=== PATIENT | female | born 1960 | race Caucasian/White ===

== ENCOUNTER 2016-08-23 07:45 | Emergency (ER) | payer OTHER ==
[~2016-08-23] VITALS: Ht 162.6 cm; Wt 68.0 kg
--- NOTE | 2016-08-23 08:11 | PHYS DOC ---
Past Medical History Past Medical History: A-Fib, Anemia, Anxiety, Constipation, Depression, GERD, Hypothyroid, Seizure, UTI Additional Past Medical Histor: hepatitis, osteromyelitis, c-diff,quadriplegia , wound back Past Surgical History: Other Additional Past Surgical Histo: peg tube placement Alcohol Use: None Drug Use: None Adult General Chief Complaint Chief Complaint: GTUBE REPLACEMENT/MALFUNCTION HPI HPI Patient is a 55 year old female who presents to the emergency department for evaluation of a self extubated G-tube site. The patient was sent from the snf for evaluation. Per report from snf, the patient was scheduled to have her G-tube removed today. The patient does not remember how the tube came out but suspicion is that the patient pulled it out on her own. The area was dressed and the patient was sent to the emergency department reportedly because staff wanted to have the ostomy site "stitched." The patient has no complaints at this time. Review of Systems Review of Systems Constitutional: Denies fever or chills [] Eyes: Denies change in visual acuity, redness, or eye pain [] HENT: Denies nasal congestion or sore throat [] Respiratory: Denies cough or shortness of breath [] Cardiovascular: Denies chest pain or edema [] GI: Denies abdominal pain, nausea, vomiting, bloody stools or diarrhea [] : Denies dysuria or hematuria [] Musculoskeletal: Denies back pain or joint pain [] Integument: Denies rash or skin lesions [] Neurologic: Denies headache, focal weakness or sensory changes [] Allergies Allergies Allergies Coded Allergies Type Severity Reaction Last Updated Verified ciprofloxacin Allergy Unknown 08/23/16 Yes Physical Exam Physical Exam Constitutional: Alert, afebrile, no acute distress. [] HENT: Normocephalic, atraumatic, bilateral external ears normal, oropharynx moist, no oral exudates, nose normal. [] Eyes: PERRLA, EOMI, conjunctiva normal, no discharge. [] Neck: Normal range of motion, no tenderness, supple, no stridor. [] Cardiovascular:Heart rate regular rhythm, no murmur [] Lungs & Thorax: Bilateral breath sounds clear to auscultation [] Abdomen: Bowel sounds normal, soft, left upper quadrant ostomy site dressings clean, dry, and intact, ostomy site without bleeding or laceration, no tenderness, no masses, no pulsatile masses. [] Skin: Warm, dry, no erythema, no rash. [] Back: No tenderness, no CVA tenderness. [] Extremities: No tenderness, no cyanosis, no clubbing, ROM intact, no edema. [] Neurologic: Alert and oriented X 3, answers questions appropriately. [] Current Patient Data Vital Signs Vital Signs Date Time Temp Pulse Resp B/P Pulse Ox O2 Delivery O2 Flow Rate FiO2 08/23/16 07:45 98.7 76 20 112/59 91 Room Air 98.7 Lab Values Laboratory Tests Test 08/23/16 08:40 White Blood Count 3.8x10^3/uL (4.0-11.0) L Red Blood Count 3.49x10^6/uL (3.50-5.40) L Hemoglobin 9.4g/dL (12.0-15.5) L Hematocrit 29.2% (36.0-47.0) L Mean Corpuscular Volume 84fL (79-100) Mean Corpuscular Hemoglobin 27pg (25-35) Mean Corpuscular Hemoglobin Concent 32g/dL (31-37) Red Cell Distribution Width 18.5% (11.5-14.5) H Platelet Count 250x10^3/uL (140-400) Neutrophils (%) (Auto) 35% (31-73) Lymphocytes (%) (Auto) 42% (24-48) Monocytes (%) (Auto) 15% (0-9) H Eosinophils (%) (Auto) 8% (0-3) H Basophils (%) (Auto) 1% (0-3) Neutrophils # (Auto) 1.3x10^3uL (1.8-7.7) L Lymphocytes # (Auto) 1.6x10^3/uL (1.0-4.8) Monocytes # (Auto) 0.6x10^3/uL (0.0-1.1) Eosinophils # (Auto) 0.3x10^3/uL (0.0-0.7) Basophils # (Auto) 0.0x10^3/uL (0.0-0.2) Sodium Level 139mmol/L (136-145) Potassium Level 3.9mmol/L (3.5-5.1) Chloride Level 103mmol/L (98-107) Carbon Dioxide Level 31mmol/L (21-32) Anion Gap 5 (6-14) L Blood Urea Nitrogen 13mg/dL (7-20) Creatinine 0.3mg/dL (0.6-1.0) L Estimated GFR (Cockcroft-Gault) 231.0 Glucose Level 85mg/dL (70-99) Calcium Level 9.1mg/dL (8.5-10.1) Laboratory Tests 08/23/16 08:40 Laboratory Tests 08/23/16 08:40 EKG EKG Not performed [] Radiology/Procedures Radiology/Procedures Not performed [] Course & Med Decision Making Course & Med Decision Making Pertinent Labs and Imaging studies reviewed. (See chart for details) The patient appears well and in no acute distress at this time. The patient's ostomy site needs routine wound care as it should not be stitched closed at this time. I spoke with Dr. Weiss who stated that it would be appropriate to transfer the patient back to the snf. Dragon Disclaimer Dragon Disclaimer This electronic medical record was generated, in whole or in part, using a voice recognition dictation system. Departure Departure Impression: Primary Impression: Complication of ostomy Disposition: 03 TRANSFER SNF Condition: GOOD Patient Instructions: PEG, Home Care, [id number] Additional Instructions: The ostomy site at this time will heal on its own. Please keep the ostomy site covered with clean bandages and provide routine wound care. Return to the emergency department for any worsening symptoms. RAOUL VALVERDE MD Aug 23, 2016 08:11
[2016-08-23 08:56] LABS: BASO % 1 % (0-3); EOS % 8 % (0-3); HEMATOCRIT 29.2 % (36.0-47.0); HEMOGLOBIN 9.4 g/dL (12.0-15.5); LYMPH # 1.6 x10^3/uL (1.0-4.8); LYMPH % 42 % (24-48); MEAN CORPUSCULAR HEMOGLOBIN 27 pg (25-35); MEAN CORPUSCULAR HGB CONC 32 g/dL (31-37); MEAN CORPUSCULAR VOLUME 84 fL (79-100); MONO % 15 % (0-9); NEUT % 35 % (31-73); PLATELET COUNT 250 x10^3/uL (140-400); RED BLOOD COUNT 3.49 x10^6/uL (3.50-5.40); RED CELL DISTRIBUTION WIDTH 18.5 % (11.5-14.5); WHITE BLOOD COUNT 3.8 x10^3/uL (4.0-11.0)
[2016-08-23 09:06] LABS: CALCIUM 9.1 mg/dL (8.5-10.1); CREATININE 0.3 mg/dL (0.6-1.0); POTASSIUM 3.9 mmol/L (3.5-5.1)
[2016-08-23 10:46] VITALS: BP 95/63
== END 2016-08-23 11:18 | disposition home or self-care (01) ==
LOC: ER 07:45
DX: K94.29 Other complications of gastrostomy (principal); I48.91 Unspecified atrial fibrillation; F41.9 Anxiety disorder, unspecified; K59.00 Constipation, unspecified; F32.9 Major depressive disorder, single episode, unspecified; K21.9 Gastro-esophageal reflux disease without esophagitis; E03.9 Hypothyroidism, unspecified; M86.9 Osteomyelitis, unspecified; G82.50 Quadriplegia, unspecified; Z87.440 Personal history of urinary (tract) infections; Z88.1 Allergy status to other antibiotic agents
CPT/HCPCS: 36415; 80048; 85027; 99285

== ENCOUNTER 2016-09-02 12:38 | Inpatient (IN) | payer OTHER ==
[~2016-09-02] VITALS: Ht 170.2 cm; Wt 77.2 kg
--- NOTE | 2016-09-02 13:22 | PHYS DOC ---
Past Medical History Past Medical History: A-Fib, Anemia, Anxiety, Constipation, Depression, GERD, Hypothyroid, Seizure, UTI Additional Past Medical Histor: hepatitis, osteromyelitis, c-diff,quadriplegia , wound back Past Surgical History: Other Additional Past Surgical Histo: peg tube placement Alcohol Use: None Drug Use: None Adult General Chief Complaint Chief Complaint: FEVER HPI HPI Patient is a 55 year old female who presents with her and confusion. According to snf she's been refusing her medicines for the last day and acting more confused. She had her Arciniega catheter changed 2 days ago. She presents the ER today with a fever of 100.8, and she has a hard time telling me why she is here and who she lives with her past medical history. Review of Systems Review of Systems Unable to obtain fully secondary to mild confusion. Current Medications Current Medications Current Medications Medications (Trade) Dose Ordered Sig/Nereida Start Time Stop Time Status Last Admin Dose Admin Morphine Sulfate 2 mg PRN Q2HR PRN 09/02/16 15:15 09/03/16 15:14 Ondansetron HCl (Zofran) 4 mg PRN Q8HRS PRN 09/02/16 15:15 09/03/16 15:14 Piperacillin Sod/ Tazobactam Sod 4.5 gm/Sodium Chloride 100 ml @ 200 mls/hr Q6HRS 09/02/16 18:00 UNV Piperacillin Sod/ Tazobactam Sod/ Sodium Chloride (Zosyn/Iv Sodium Chloride 0.9% 100ml) 100 ml @ 200 mls/hr 1X ONCE 09/02/16 15:15 09/02/16 15:44 Sodium Chloride 1,000 ml @ 510 mls/hr Q1H58M 09/02/16 15:01 09/02/16 19:01 Allergies Allergies Allergies Coded Allergies Type Severity Reaction Last Updated Verified ciprofloxacin Allergy Intermediate 09/02/16 Yes Physical Exam Physical Exam Constitutional: Well developed, well nourished, no acute distress, non-toxic appearance. [] HENT: Normocephalic, atraumatic, bilateral external ears normal, oropharynx moist, no oral exudates, nose normal. [] Eyes: PERRLA, EOMI, conjunctiva normal, no discharge. [] Neck: Normal range of motion, no tenderness, supple, no stridor. [] Cardiovascular:Heart rate regular rhythm, no murmur [] Lungs & Thorax: Bilateral breath sounds clear to auscultation [] Abdomen: Bowel sounds normal, soft, no tenderness, no masses, no pulsatile masses. [] Skin: Warm, dry, no erythema, no rash. [] Back: No tenderness, no CVA tenderness. [] Extremities: No tenderness, no cyanosis, no clubbing, ROM intact, no edema. [] Neurologic: Alert and oriented X 3, normal motor function, normal sensory function, no focal deficits noted. [] Psychologic: Affect normal, judgement normal, mood normal. [] Current Patient Data Vital Signs Vital Signs Date Time Temp Pulse Resp B/P Pulse Ox O2 Delivery O2 Flow Rate FiO2 09/02/16 13:15 100.8 118 22 101/65 Room Air 94 100.8 Lab Values Laboratory Tests Test 09/02/16 13:50 09/02/16 14:30 Urine Collection Type Unknown Urine Color [place] Urine Clarity Turbid Urine pH 7.0 Urine Specific [place] 1.010 Urine Protein 100mg/dL (NEG-TRACE) Urine Glucose (UA) Negativemg/dL (NEG) Urine Ketones (Stick) Tracemg/dL (NEG) Urine Blood Moderate (NEG) Urine Nitrite Positive (NEG) Urine Bilirubin Negative (NEG) Urine Urobilinogen Dipstick 2.0mg/dL (0.2 mg/dL) Urine Leukocyte Esterase Large (NEG) Urine RBC 6-10/HPF (0-2) Urine WBC Tntc/HPF (0-4) Urine Bacteria Many/HPF (0-FEW) Urine Test Negative (NEG) Influenza Type A Antigen Negative (NEGATIVE) Influenza Type B Antigen Negative (NEGATIVE) White Blood Count 9.9x10^3/uL (4.0-11.0) Red Blood Count 3.74x10^6/uL (3.50-5.40) Hemoglobin 10.1g/dL (12.0-15.5) L Hematocrit 30.9% (36.0-47.0) L Mean Corpuscular Volume 83fL (79-100) Mean Corpuscular Hemoglobin 27pg (25-35) Mean Corpuscular Hemoglobin Concent 33g/dL (31-37) Red Cell Distribution Width 17.4% (11.5-14.5) H Platelet Count 285x10^3/uL (140-400) Neutrophils (%) (Auto) 89% (31-73) H Lymphocytes (%) (Auto) 5% (24-48) L Monocytes (%) (Auto) 6% (0-9) Eosinophils (%) (Auto) 0% (0-3) Basophils (%) (Auto) 0% (0-3) Neutrophils # (Auto) 8.8x10^3uL (1.8-7.7) H Lymphocytes # (Auto) 0.5x10^3/uL (1.0-4.8) L Monocytes # (Auto) 0.6x10^3/uL (0.0-1.1) Eosinophils # (Auto) 0.0x10^3/uL (0.0-0.7) Basophils # (Auto) 0.0x10^3/uL (0.0-0.2) Platelet Estimate Pending Prothrombin Time 17.3SEC (11.7-14.0) H Prothrombin Time INR 1.5 (0.8-1.1) H PTT 43SEC (24-38) H Sodium Level 139mmol/L (136-145) Potassium Level 4.0mmol/L (3.5-5.1) Chloride Level 101mmol/L (98-107) Carbon Dioxide Level 28mmol/L (21-32) Anion Gap 10 (6-14) Blood Urea Nitrogen 24mg/dL (7-20) H Creatinine 0.8mg/dL (0.6-1.0) Estimated GFR (Cockcroft-Gault) 74.5 BUN/Creatinine Ratio 30 (6-20) H Glucose Level 115mg/dL (70-99) H Lactic Acid Level 1.2mmol/L (0.4-2.0) Calcium Level 9.7mg/dL (8.5-10.1) Total Bilirubin Pending Aspartate Amino Transferase (AST) Pending Alanine Aminotransferase (ALT) Pending Alkaline Phosphatase Pending Total Protein Pending Albumin Pending Albumin/Globulin Ratio Pending Laboratory Tests 09/02/16 14:30 Laboratory Tests 09/02/16 14:30 EKG EKG EKG shows sinus tachycardia at a rate of 119 bpm with left axis deviation, no ST elevations or T-wave inversions appreciated, QRS 82 ms as interpreted by me. Radiology/Procedures Radiology/Procedures [] Impressions: fever AMS Course & Med Decision Making Course & Med Decision Making Pertinent Labs and Imaging studies reviewed. (See chart for details) Patient was seen and evaluated by myself for fever and altered mental status. Labs, chest x-ray is pending at this time. Patient being checked out to Dr. Martin for final disposition and treatment. Dragon Disclaimer Dragon Disclaimer This electronic medical record was generated, in whole or in part, using a voice recognition dictation system. Departure Departure Referrals: MARY LOU YOUNG MD (PCP) ANDERSON PROCTOR MD Sep 02, 2016 13:22
[2016-09-02 14:12] LABS: BILIRUBIN,URINE NEGATIVE (NEG); GLUCOSE,URINE NEGATIVE (NEG); NITRITE,URINE POSITIVE (NEG); PROTEIN,URINE 100 mg/dL (NEG-TRACE)
[2016-09-02 14:20] LABS: NEG OBC UR NEG; POS OBC UR POS
[2016-09-02 14:24] LABS: OBC FLU VALID
[2016-09-02 14:33] LABS: BACTERIA,URINE MANY /HPF (0-FEW); WBC,URINE TNTC /HPF (0-4)
[2016-09-02 14:48] LABS: BASO % 0 % (0-3); EOS % 0 % (0-3); HEMATOCRIT 30.9 % (36.0-47.0); HEMOGLOBIN 10.1 g/dL (12.0-15.5); LYMPH # 0.5 x10^3/uL (1.0-4.8); LYMPH % 5 % (24-48); MEAN CORPUSCULAR HEMOGLOBIN 27 pg (25-35); MEAN CORPUSCULAR HGB CONC 33 g/dL (31-37); MEAN CORPUSCULAR VOLUME 83 fL (79-100); MONO % 6 % (0-9); NEUT % 89 % (31-73); PLATELET COUNT 285 x10^3/uL (140-400); RED BLOOD COUNT 3.74 x10^6/uL (3.50-5.40); RED CELL DISTRIBUTION WIDTH 17.4 % (11.5-14.5); WHITE BLOOD COUNT 9.9 x10^3/uL (4.0-11.0)
[2016-09-02 15:00] LABS: INR 1.5 (0.8-1.1); PROTHROMBIN TIME PATIENT 17.3 SEC (11.7-14.0)
[2016-09-02 15:06] LABS: CALCIUM 9.7 mg/dL (8.5-10.1); CREATININE 0.8 mg/dL (0.6-1.0); GFR 74.5
[2016-09-02] MEDS ORDERED: ONDANSETRON PF 4 MG/2 ML VIAL. IV PRN ×2 (15:15→16:30)
[2016-09-02] MEDS ORDERED: PIPERACILLIN/TAZOBACTAM 4.5 GM in IV NORMAL SALINE 100ML 100 ML IV ONE (15:15)
[2016-09-02] MEDS ORDERED: MORPHINE SULFATE 2 MG/ML DISP.SYRIN. IV PRN (15:15)
[2016-09-02 15:19] LABS: ALBUMIN 2.1 g/dL (3.4-5.0); ALBUMIN/GLOBULIN RATIO 0.4 (1.0-1.7); TOTAL BILIRUBIN 0.8 mg/dL (0.2-1.0); TOTAL PROTEIN 7.5 g/dL (6.4-8.2)
--- NOTE | 2016-09-02 15:30 | RAD ---
Indication fever. Protocol exam. A single view of the chest was obtained. No prior imaging of the chest is available. Slightly tortuous thoracic aorta is noted. Heart size and pulmonary vessels are normal. There is minimal volume loss at the left lung base likely reflecting atelectasis. A consolidated pneumonia in either lung is not seen. Significant pleural fluid is not present. There is no pneumothorax. There are degenerative changes about the right shoulder. Plate and screws are noted associated with the left clavicle as well as an isolated screw in the clavicle medially. Postoperative changes are noted in the thoracic spine. There is mild scoliosis. IMPRESSION: No definite acute or focal process seen in the chest
[2016-09-02] MEDS: IV NORMAL SALINE 1000ML BAG 1,000 ML IV SCH ×4 (15:32→19:14)
--- NOTE | 2016-09-02 16:03 | EKG ---
[facility] [address] [place] [address] Test Date: 2016-09-02 Test Time: 14:02:37 Pat Name: FRANCINE GARRIDO Department: Room: Gender: F Sports Physician: : [id number] Requested By: ANDERSON PROCTOR Order Number: [id number] Reading MD: Lyn Vann Measurements Intervals [place] Rate: 119 P: -123 MN: 88 QRS: -16 QRSD: 82 T: 41 QT: 352 QTc: 503 Interpretive Statements Sinus RHYTHM LEFTWARD AXIS NO SPECIFIC ECG ABNORMALITIES RI6.01 No previous ECG available for comparison Electronically Signed On 09-04-2016 20:51:56 OPERATING MANAGER by Lyn Vann
[2016-09-02 16:08] LABS: ANISOCYTOSIS SLIGHT; PLT ESTIMATE ADEQUATE (ADEQUATE); POLYCHROMASIA SLIGHT
[2016-09-02 16:09] LABS: TOXIC GRANULATION SLIGHT
[2016-09-02] MEDS ORDERED: VANCOMYCIN 1.5 GM in IV NORMAL SALINE 500ML BAG 500 ML IV SCH (16:30)
[2016-09-02] MEDS ORDERED: MORPHINE SULFATE 4 MG/ML DISP.SYRIN. IV PRN (16:30)
--- NOTE | 2016-09-02 16:30 | PDOC1 ---
History and Physical Date of Admission Date of Admission 09/02/16 Identification/Chief Complaint Chief Complaint weak, fever Problems: Source Source: Chart review, Patient History of Present Illness History of Present Illness HPI HPI Patient is a 55 year old female who presents with fever, and confusion. Pt is a poor historian and talks very slowly and randomly. As per ERP and ER nurse, Pt fell in 2014, got fx at c2-c6, SINCE then pt is quadriplegia , PEG feeding and freire. PEG was removed 1 week ago and po is ok since then. Pt had a bad dream 2 days ago, since then she became confused and refusing her meds, pt said "worried got too many meds" when i asked her why. She also has fever and chills. Her freire was changed 2 ds ago in SNF, has abd pain. denies cough, n/v, chest pain. in ER, T 100.8, very dirty urine. LA 1.2 Past Medical History Past Medical History y: A-Fib, Anemia, Anxiety, Constipation, Depression, GERD, Hypothyroid, Seizure , UTI Additional Past Medical Histor: hepatitis, osteromyelitis, c-diff,quadriplegia , wound back Past Surgical History: Other Past Surgical History Past Surgical History cervical spine sx , shouldersx Family History Family History: No Significant Social History Smoke: No ALCOHOL: none Drugs: None Current Problem List Problem List Problems Medical Problems: (1) Sepsis Status: Acute (2) UTI (urinary tract infection) Status: Acute Current Medications Current Medications Current Medications Medications (Trade) Dose Ordered Sig/Nereida Start Time Stop Time Status Last Admin Dose Admin Morphine Sulfate 2 mg PRN Q2HR PRN 09/02/16 15:15 09/03/16 15:14 Ondansetron HCl (Zofran) 4 mg PRN Q8HRS PRN 09/02/16 15:15 09/03/16 15:14 Piperacillin Sod/ Tazobactam Sod 4.5 gm/Sodium Chloride 100 ml @ 200 mls/hr Q6HRS 09/03/16 00:00 Piperacillin Sod/ Tazobactam Sod/ Sodium Chloride (Zosyn/Iv Sodium Chloride 0.9% 100ml) 100 ml @ 200 mls/hr 1X ONCE 09/02/16 15:15 09/02/16 15:44 DC 09/02/16 15:35 200 MLS/HR Sodium Chloride 1,000 ml @ 510 mls/hr Q1H58M 09/02/16 15:01 09/02/16 19:01 09/02/16 15:32 510 MLS/HR Allergies Allergies Allergies Coded Allergies Type Severity Reaction Last Updated Verified ciprofloxacin Allergy Intermediate 09/02/16 Yes ROS Review of System CONSTITUTIONAL: No fever or chills EYES: No recent changes SKIN: No rash or itching CARDIOVASCULAR: No chest pain, syncope, palpitations, or edema RESPIRATORY: No SOB or cough GASTROINTESTINAL: No nausea, vomiting or abdominal pain NEUROLOGICAL: No headaches or weakness ENDOCRINE: No cold or heat intolerance GENITOURINARY: No urgency or frequency of urination MUSCULOSKELETAL: No back pain or joint pain LYMPHATICS: No enlarged lymph nodes PSYCHIATRIC: No anxiety or depression Physical Exam Physical Exam GEN.: No apparent distress. Alert and oriented x2, to place, knows hospital , but dont know which one, knows year, looks mild lethargic, talks very slowly and randomly HEENT: Head is normocephalic, atraumatic NECK: Supple. LUNGS: Clear to auscultation. HEART: RRR, S1, S2 present. Peripheral pulses intact ABDOMEN: Soft, Positive bowel sounds. diffuse mild tenderness EXTREMITIES: Without any cyanosis. quadriplegia. bl leg 1+ edema. dirty freire NEUROLOGIC: Normal speech, normal tone PSYCHIATRIC: Normal affect, normal mood. SKIN: No ulcerations Vitals Vitals Vital Signs Date Time Temp Pulse Resp B/P Pulse Ox O2 Delivery O2 Flow Rate FiO2 09/02/16 13:15 100.8 118 22 101/65 Room Air 94 100.8 Labs Labs Laboratory Tests Test 09/02/16 13:50 09/02/16 14:30 Urine Collection Type Unknown Urine Color [place] Urine Clarity Turbid Urine pH 7.0 Urine Specific [place] 1.010 Urine Protein 100mg/dL (NEG-TRACE) Urine Glucose (UA) Negativemg/dL (NEG) Urine Ketones (Stick) Tracemg/dL (NEG) Urine Blood Moderate (NEG) Urine Nitrite Positive (NEG) Urine Bilirubin Negative (NEG) Urine Urobilinogen Dipstick 2.0mg/dL (0.2 mg/dL) Urine Leukocyte Esterase Large (NEG) Urine RBC 6-10/HPF (0-2) Urine WBC Tntc/HPF (0-4) Urine Bacteria Many/HPF (0-FEW) Urine Test Negative (NEG) Influenza Type A Antigen Negative (NEGATIVE) Influenza Type B Antigen Negative (NEGATIVE) White Blood Count 9.9x10^3/uL (4.0-11.0) Red Blood Count 3.74x10^6/uL (3.50-5.40) Hemoglobin 10.1g/dL (12.0-15.5) Hematocrit 30.9% (36.0-47.0) Mean Corpuscular Volume 83fL (79-100) Mean Corpuscular Hemoglobin 27pg (25-35) Mean Corpuscular Hemoglobin Concent 33g/dL (31-37) Red Cell Distribution Width 17.4% (11.5-14.5) Platelet Count 285x10^3/uL (140-400) Neutrophils (%) (Auto) 89% (31-73) Lymphocytes (%) (Auto) 5% (24-48) Monocytes (%) (Auto) 6% (0-9) Eosinophils (%) (Auto) 0% (0-3) Basophils (%) (Auto) 0% (0-3) Neutrophils # (Auto) 8.8x10^3uL (1.8-7.7) Lymphocytes # (Auto) 0.5x10^3/uL (1.0-4.8) Monocytes # (Auto) 0.6x10^3/uL (0.0-1.1) Eosinophils # (Auto) 0.0x10^3/uL (0.0-0.7) Basophils # (Auto) 0.0x10^3/uL (0.0-0.2) Segmented Neutrophils % 62% (35-66) Band Neutrophils % 27% (0-9) Lymphocytes % 6% (24-48) Monocytes % 5% (0-10) Toxic Granulation Slight Platelet Estimate Adequate (ADEQUATE) Polychromasia Slight Anisocytosis Slight Prothrombin Time 17.3SEC (11.7-14.0) Prothromb Time International Ratio 1.5 (0.8-1.1) Activated Partial Thromboplast Time 43SEC (24-38) Sodium Level 139mmol/L (136-145) Potassium Level 4.0mmol/L (3.5-5.1) Chloride Level 101mmol/L (98-107) Carbon Dioxide Level 28mmol/L (21-32) Anion Gap 10 (6-14) Blood Urea Nitrogen 24mg/dL (7-20) Creatinine 0.8mg/dL (0.6-1.0) Estimated GFR (Cockcroft-Gault) 74.5 BUN/Creatinine Ratio 30 (6-20) Glucose Level 115mg/dL (70-99) Lactic Acid Level 1.2mmol/L (0.4-2.0) Calcium Level 9.7mg/dL (8.5-10.1) Total Bilirubin 0.8mg/dL (0.2-1.0) Aspartate Amino Transf (AST/SGOT) 32U/L (15-37) Alanine Aminotransferase (ALT/SGPT) 16U/L (14-59) Alkaline Phosphatase 98U/L (46-116) Total Protein 7.5g/dL (6.4-8.2) Albumin 2.1g/dL (3.4-5.0) Albumin/Globulin Ratio 0.4 (1.0-1.7) Laboratory Tests Test 09/02/16 13:50 09/02/16 14:30 Urine Collection Type Unknown Urine Color [place] Urine Clarity Turbid Urine pH 7.0 Urine Specific [place] 1.010 Urine Protein 100mg/dL (NEG-TRACE) Urine Glucose (UA) Negativemg/dL (NEG) Urine Ketones (Stick) Tracemg/dL (NEG) Urine Blood Moderate (NEG) Urine Nitrite Positive (NEG) Urine Bilirubin Negative (NEG) Urine Urobilinogen Dipstick 2.0mg/dL (0.2 mg/dL) Urine Leukocyte Esterase Large (NEG) Urine RBC 6-10/HPF (0-2) Urine WBC Tntc/HPF (0-4) Urine Bacteria Many/HPF (0-FEW) Urine Test Negative (NEG) Influenza Type A Antigen Negative (NEGATIVE) Influenza Type B Antigen Negative (NEGATIVE) White Blood Count 9.9x10^3/uL (4.0-11.0) Red Blood Count 3.74x10^6/uL (3.50-5.40) Hemoglobin 10.1g/dL (12.0-15.5) Hematocrit 30.9% (36.0-47.0) Mean Corpuscular Volume 83fL (79-100) Mean Corpuscular Hemoglobin 27pg (25-35) Mean Corpuscular Hemoglobin Concent 33g/dL (31-37) Red Cell Distribution Width 17.4% (11.5-14.5) Platelet Count 285x10^3/uL (140-400) Neutrophils (%) (Auto) 89% (31-73) Lymphocytes (%) (Auto) 5% (24-48) Monocytes (%) (Auto) 6% (0-9) Eosinophils (%) (Auto) 0% (0-3) Basophils (%) (Auto) 0% (0-3) Neutrophils # (Auto) 8.8x10^3uL (1.8-7.7) Lymphocytes # (Auto) 0.5x10^3/uL (1.0-4.8) Monocytes # (Auto) 0.6x10^3/uL (0.0-1.1) Eosinophils # (Auto) 0.0x10^3/uL (0.0-0.7) Basophils # (Auto) 0.0x10^3/uL (0.0-0.2) Segmented Neutrophils % 62% (35-66) Band Neutrophils % 27% (0-9) Lymphocytes % 6% (24-48) Monocytes % 5% (0-10) Toxic Granulation Slight Platelet Estimate Adequate (ADEQUATE) Polychromasia Slight Anisocytosis Slight Prothrombin Time 17.3SEC (11.7-14.0) Prothromb Time International Ratio 1.5 (0.8-1.1) Activated Partial Thromboplast Time 43SEC (24-38) Sodium Level 139mmol/L (136-145) Potassium Level 4.0mmol/L (3.5-5.1) Chloride Level 101mmol/L (98-107) Carbon Dioxide Level 28mmol/L (21-32) Anion Gap 10 (6-14) Blood Urea Nitrogen 24mg/dL (7-20) Creatinine 0.8mg/dL (0.6-1.0) Estimated GFR (Cockcroft-Gault) 74.5 BUN/Creatinine Ratio 30 (6-20) Glucose Level 115mg/dL (70-99) Lactic Acid Level 1.2mmol/L (0.4-2.0) Calcium Level 9.7mg/dL (8.5-10.1) Total Bilirubin 0.8mg/dL (0.2-1.0) Aspartate Amino Transf (AST/SGOT) 32U/L (15-37) Alanine Aminotransferase (ALT/SGPT) 16U/L (14-59) Alkaline Phosphatase 98U/L (46-116) Total Protein 7.5g/dL (6.4-8.2) Albumin 2.1g/dL (3.4-5.0) Albumin/Globulin Ratio 0.4 (1.0-1.7) VTE Prophylaxis Ordered VTE Prophylaxis Devices: Yes VTE Pharmacological Prophylaxi: Yes Assessment/Plan Assessment/Plan 1. UTI 2 . fever with 1 3. PAFIB, sinus now 4. anemia, chronic 5. quadriplegia post cervical fx 6. depression 7. hypothyroidism 8. GERD 9. h/o seizure 10. h/o cdiff 11. h/o hepatitis and osteomyelitis 12. dysphagia, resolved , PEG removed 13. indwelling freire with neurogenic bladder 14. AMS with metabolic encephalopathy plan: 1. need home meds 2. on zosyn from ER, add vanco ID consult 3. IVF 4. nutrition consult 5. dvt ppx, gi ppx OT 6. fu bcx, ucx US JALYN Garcia MD Sep 02, 2016 16:30
[2016-09-02] MEDS: VANCOMYCIN PER PHARMACY MC PRN (16:32)
[2016-09-02] MEDS ORDERED: VANCOMYCIN 1.75 GM in IV NORMAL SALINE 500ML BAG 500 ML IV ONE (17:00)
[2016-09-02 18:30] VITALS: BP 86/41
[2016-09-02] MEDS: ACETAMINOPHEN 325 MG TABLET. PO PRN (19:15)
[2016-09-02] MEDS: PANTOPRAZOLE 40 MG TABLET. PO SCH (19:15)
[2016-09-02] MEDS: ENOXAPARIN 40 MG/0.4 ML DISP.SYRIN. SQ SCH (19:15)
[2016-09-02 19:49] VITALS: BP 111/65
[2016-09-02 22:53] VITALS: BP 66/41
[2016-09-02] MEDS ORDERED: IV NORMAL SALINE 1000ML BAG 1,000 ML IV ONE (23:00)
[2016-09-02 23:15] VITALS: BP 131/67
[2016-09-02 23:30] VITALS: BP 75/41
[2016-09-02 23:45] VITALS: BP 85/49
[2016-09-03] VITALS (30 sets, daily range): BP systolic 71–130; BP diastolic 46–78
[2016-09-03] MEDS: MIDODRINE 5 MG TABLET PO SCH ×4 (00:08→16:35)
[2016-09-03] MEDS: HYDROCODONE/APAP 5/325MG TABLET. PO PRN ×2 (00:08→16:37)
[2016-09-03] MEDS: PIPERACILLIN/TAZOBACTAM 4.5 GM in IV NORMAL SALINE 100ML 100 ML IV SCH ×4 (01:10→16:35)
[2016-09-03] MEDS ORDERED: ACET325T9 PO (01:29)
[2016-09-03] MEDS ORDERED: IRON150C3 PO (01:29)
[2016-09-03] MEDS ORDERED: DIVA125T2 PO (01:29)
[2016-09-03] MEDS ORDERED: ASPI81TA2 PO (01:29)
[2016-09-03] MEDS ORDERED: BACL10TA PO (01:29)
[2016-09-03] MEDS ORDERED: BISA10SU2 RC (01:29)
[2016-09-03] MEDS ORDERED: FLUO40CA2 PO (01:29)
[2016-09-03] MEDS ORDERED: MIRT15TA3 PO (01:29)
[2016-09-03] MEDS ORDERED: MIDO10TA PO (01:29)
[2016-09-03] MEDS ORDERED: FAMO20TA5 PO (01:29)
[2016-09-03] MEDS ORDERED: SODI14.12 TP (01:29)
[2016-09-03] MEDS ORDERED: SIME80TA14 PO (01:29)
[2016-09-03] MEDS ORDERED: MORP30TA PO (01:29)
[2016-09-03] MEDS ORDERED: FENT1PAT15 TD (01:29)
[2016-09-03] MEDS ORDERED: LEVO100T PO (01:29)
[2016-09-03] MEDS ORDERED: LIOT5TAB3 PO (01:29)
[2016-09-03] MEDS ORDERED: ONDA4TAB12 PO (01:29)
[2016-09-03] MEDS ORDERED: ASCO500T2 PO (01:29)
[2016-09-03] MEDS ORDERED: DOCU-27 PO (01:29)
[2016-09-03] MEDS ORDERED: CLON0.5T3 PO (01:29)
[2016-09-03] MEDS ORDERED: ZINC220C5 PO (01:29)
[2016-09-03] MEDS ORDERED: MELO-150 PO (01:29)
[2016-09-03] MEDS ORDERED: OXYC20TA PO (01:29)
[2016-09-03] MEDS ORDERED: OXYB5TAB7 PO (01:29)
[2016-09-03] MEDS: NOREPINEPHRINE VIAL 8 MG in IV NORMAL SALINE 250ML 250 ML IV PRN ×2 (01:45→21:42)
[2016-09-03 04:30] LABS: BASO % 0 % (0-3); EOS % 0 % (0-3); HEMATOCRIT 26.2 % (36.0-47.0); HEMOGLOBIN 8.4 g/dL (12.0-15.5); LYMPH # 0.4 x10^3/uL (1.0-4.8); LYMPH % 6 % (24-48); MEAN CORPUSCULAR HEMOGLOBIN 27 pg (25-35); MEAN CORPUSCULAR HGB CONC 32 g/dL (31-37); MEAN CORPUSCULAR VOLUME 84 fL (79-100); MONO % 6 % (0-9); NEUT % 88 % (31-73); PLATELET COUNT 211 x10^3/uL (140-400); RED BLOOD COUNT 3.13 x10^6/uL (3.50-5.40); RED CELL DISTRIBUTION WIDTH 17.7 % (11.5-14.5); WHITE BLOOD COUNT 6.3 x10^3/uL (4.0-11.0)
[2016-09-03 04:49] LABS: CALCIUM 8.5 mg/dL (8.5-10.1); CREATININE 0.6 mg/dL (0.6-1.0); GFR 103.8
[2016-09-03 04:53] LABS: POTASSIUM 2.6 mmol/L (3.5-5.1)
[2016-09-03] MEDS: IV NORMAL SALINE 1000ML BAG 1,000 ML IV SCH ×2 (04:56→11:08)
[2016-09-03] MEDS ORDERED: VANCOMYCIN 1 GM in IV NORMAL SALINE 250ML 250 ML IV SCH ×2 (05:00→13:00)
[2016-09-03] MEDS: POTASSIUM CHLORIDE 10MEQ 100 ML IV SCH ×7 (06:13→16:34)
--- NOTE | 2016-09-03 07:51 | RAD ---
Abdominal ultrasound, 09/02/2016: History: Abdominal pain, UTI The gallbladder is surgically absent. The common hepatic duct measures approximately 1 cm which is at the upper limits of normal in size for the postcholecystectomy state. No intrahepatic biliary ductal dilatation is seen. There is a small 1.4 cm cyst in the liver. The liver is otherwise unremarkable. The visualized portions of the pancreas show no abnormality. The spleen is of normal size. The kidneys are of normal size and show no evidence of obstruction. The upper abdominal aorta is of normal caliber. It is obscured distally due to overlying bowel. The visualized portions of the inferior vena cava are unremarkable. No free fluid is evident in the abdomen. IMPRESSION: 1. Status post cholecystectomy. 2. Small hepatic cyst. 3. No acute abnormality is detected.
[2016-09-03] MEDS: PANTOPRAZOLE 40 MG TABLET. PO SCH (08:16)
[2016-09-03] MEDS: VANCOMYCIN PER PHARMACY MC PRN ×2 (10:56→10:57)
[2016-09-03] MEDS: VANCOMYCIN 1 GM in IV NORMAL SALINE 250ML 250 ML IV SCH ×2 (12:36→20:24)
--- NOTE | 2016-09-03 13:12 | HP ---
ADMIT DATE: 09/02/2016 HISTORY OF PRESENT ILLNESS: The patient is a 55-year-old female patient who was residing at [facility] and who apparently has complained that she is not feeling well. The nursing staff contacted me as she has been febrile. She is more confused than usual and a decision was made to send her to the Emergency Room where she was evaluated and was found to be septic and was admitted with fever and altered mental status. Her blood pressure was low, so she was admitted to the ICU, was given IV fluid, IV Levophed, was started on broad spectrum antibiotic after obtaining appropriate cultures of urine and blood. PAST MEDICAL HISTORY: Significant for chronic hepatitis, acute hematogenous osteomyelitis, atrial fibrillation, gastroesophageal reflux disease with esophagitis, chronic anemia. Patient has C. diff colitis. She has also seizure disorder, chronic constipation, chronic pain syndrome, major depressive disorder, hypothyroidism, protein-calorie malnutrition, essential hypertension, anxiety disorder, and she has quadriplegia, urinary tract infection. She has also chronic sacral decubitus ulcer. PAST SURGICAL HISTORY: Significant for gastrostomy tube placement and that apparently dislodged accidentally. ALLERGIES: SHE IS ALLERGIC TO CIPROFLOXACIN. CODE STATUS: Full. MEDICATIONS: She is currently on the following medications: Aspirin 81 mg once a day, baclofen 10 mg by mouth 3 times a day, bisacodyl suppository 10 mg rectally as needed, multivitamin mineral one tablet once a day, clonazepam 0.5 mg by mouth 3 times a day, Colace 100 mg twice a day. She is on divalproex sodium 125 mg by mouth twice a day, fentanyl patch 72 hours 25 mcg per hour q. 72 hours. She is also on Celebrex 150 mg once a day, fluoxetine 40 mg once a day, liothyronine sodium 5 mcg once a day. She is on Meloxicam tablet 15 mg once a day, midodrine 10 mg 3 times a day for systolic pressure below 110, mirtazapine 15 mg at bedtime, morphine sulfate 30 mg 3 times a day. She is on oxybutynin 5 mg twice a day, oxycodone 10 mg, she takes it 20 mg every 4 hours. Pepcid 20 mg once a day and saline gel 1 puff to both nostrils every 6 hours. She is on simethicone 80 mg with meals, Synthroid 100 mcg once a day and Tylenol 650 mg every 4 hours as needed, vitamin C 500 mcg once a day and zinc sulfate 220 mg once a day, Zofran oral disintegrating tablet 4 mg every 6 hours as needed. FAMILY HISTORY: Unremarkable. SOCIAL HISTORY: She is currently residing at [facility]. She does not smoke, drink alcohol or use recreational drugs. She is mostly bedbound, chair bound. REVIEW OF SYSTEMS: As per history of present illness. PHYSICAL EXAMINATION: GENERAL: On arrival to the Emergency Room, the patient was tachycardic. She was pale, cachectic. No jaundice or cyanosis, no thyromegaly. No jugular venous distention. No limb edema. VITAL SIGNS: Her heart rate was 118, blood pressure was 101/65, temperature was 100.8, respiratory rate was 22, and oxygen saturation was 94% on room air. HEAD, EYES, EARS, NOSE, AND THROAT: Showed normocephalic, atraumatic. NECK: Supple. HEART: Showed normal first and second heart sounds. No gallop, rub, or murmur. CHEST: Clear to auscultation. No crepitation or rhonchi. ABDOMEN: Distended, soft, nontender. No guarding or rigidity. No organomegaly. All hernial orifices intact. Bowel sounds normal. NEUROLOGIC: She was lethargic, but arousable. All cranial nerves intact. She has quadriplegia with fixed flexion contraction of all 4 limbs. She has a large sacral decubitus ulcer. LABORATORY DATA: On arrival showed that her white cell count was 9900, hemoglobin 10, hematocrit 30, MCV 30, and platelet count 25,000 with a manual differential showed 80%-89% polymorphs, and 50%-55% lymphocytes. Her chemistry showed a serum sodium 139, potassium 4, chloride 101, bicarbonate 28, anion gap of 10, BUN 24, creatinine 0.8, estimated GFR was 74 mL per minute. Her glucose was 115, lactic acid was only 1.2, calcium was 9.7. Total bilirubin, AST, ALT, alkaline phosphatase were normal. Total protein was 7.5, albumin 2.1. Her prothrombin time was 17.3, INR 1.5, aPTT was 43. Her urinalysis showed the urine was luigi, turbid with a pH of 7, specific gravity of 1.010. There was large amount of protein, negative for glucose, trace of ketones, moderate amount of blood, positive for nitrite, and large amount of leukocyte esterase. There was 6-10 RBCs, too numerous to count wbc's, and too many bacteria. Her test was negative. Her influenza A and B were negative. She did have a chest x-ray, which showed that slight tortuous thoracic aorta is noted. The heart size and pulmonary vessels are normal. There is minimal volume loss at the left lung base likely reflecting atelectasis, consolidated pneumonia in either lung is not seen. Significant pleural fluid is not seen. There is no pneumothorax. There are degenerative changes about the right shoulder. Blades and screws are noted associated with left clavicle as well as an isolated screw in the clavicle immediately. Postoperative changes are noted in the thoracic spine. There is mild scoliosis. She did have an ultrasound of the abdomen, which showed that she is status post cholecystectomy, small hepatic cyst, no acute abnormalities detected. ASSESSMENT AND PLAN: The patient was admitted with sepsis, most likely due to urinary tract infection. Urine and blood were sent for culture and sensitivity. She was started on IV vancomycin as well as tazobactam and continue her pain medication, antiemetic, and acetaminophen. She was started also on Levophed drip. We will continue to follow her lab work and adjusted medications as needed depending on the blood culture. MARY LOU YOUNG MD DR: BASIM/tom JOB#: [id number] / [id number]
[2016-09-03] MEDS: MORPHINE SULFATE 2 MG/ML DISP.SYRIN. IV PRN ×2 (14:51→17:59)
[2016-09-03] MEDS: CLONAZEPAM 0.5 MG TABLET PO SCH ×2 (15:14→20:28)
[2016-09-03] MEDS: ENOXAPARIN 40 MG/0.4 ML DISP.SYRIN. SQ SCH (16:34)
[2016-09-03] MEDS: ACETAMINOPHEN 325 MG TABLET. PO PRN (17:59)
--- NOTE | 2016-09-03 19:55 | PN ---
DATE: 09/03/2016 SUBJECTIVE: The patient is resting slightly propped up in bed, no apparent distress, sleepy but arousable. On questioning her, she denied any complaint. The nursing staff did not voice any concern and stated that she has been doing well. She is definitely more awake, alert. She is off the vasopressors. OBJECTIVE: PHYSICAL EXAMINATION: GENERAL: When I examined her, she looked well and was clearly in no apparent respiratory distress. She was pale, but no jaundice, cyanosis or thyromegaly. No jugular venous distention. No limb edema. VITAL SIGNS: Her heart rate was 84, blood pressure was 83/49, temperature was 100, respiratory rate was 15 and oxygen saturation was 97% on room air. HEAD, EYES, EARS, NOSE AND THROAT: Showed normocephalic, atraumatic. NECK: Supple. HEART: Showed normal first and second heart sounds with no gallop, rub or murmur. CHEST: Clear to auscultation. No crepitation or rhonchi. ABDOMEN: Distended, soft, nontender. No guarding or rigidity. No organomegaly. Hernial orifices intact. Bowel sounds normal. NEUROLOGIC: She was sleepy, but arousable. All cranial nerves intact. She has quadriplegia with marked muscle wasting. Patient ____ all 4 limbs. She has an indwelling Arciniega catheter. She has large sacral decubitus ulcer. Her intake over the last 24 hours was 2250, output was 360. LABORATORY DATA: As of this morning, her white cell count is down to 6300, hemoglobin 8.4, hematocrit 26, MCV 84 and platelet count of 211,000. Her chemistry showed a serum sodium 138, potassium 2.6, chloride 104, bicarbonate 25, anion gap of 9, BUN 18, creatinine 0.6, estimated GFR was 140 mL per minute. Her glucose was 130 and calcium was 8.5. ASSESSMENT: This is a 55-year-old female patient who was admitted with altered mental status, fever and confusion, was found to have urinary tract infection, chronic anemia, quadriplegia, hypothyroidism, gastroesophageal reflux disease, history of seizures, previous history of C. diff colitis as well as hepatitis and osteomyelitis. She used to have a percutaneous gastrostomy tube, but did very well on her video swallowing evaluation, her gastrostomy tube was dislodged accidentally and we have not put it back. She has a neurogenic bladder requiring indwelling Arciniega catheter. She is definitely much better today. Her urine culture is growing gram-negative rods in one out of four bottles. PLAN: My plan is to continue with the current plan of management including the IV antibiotic. Continue with DVT prophylaxis. Continue with pain management. She has hypokalemia that will need to be replenished and I will repeat all her lab work tomorrow and decide further management. If the cultures show no growth of gram positive cocci, we will discontinue her vancomycin tomorrow. MARY LOU YOUNG MD DR: BASIM/tom JOB#: [id number] / [id number]
[2016-09-03] MEDS ORDERED: IV NORMAL SALINE 1000ML BAG 1,000 ML IV ONE (20:15)
[2016-09-03] MEDS: OXYCODONE IR 5 MG TABLET. PO PRN (20:29)
--- NOTE | 2016-09-03 22:59 | PDOC2 ---
BAIRON DE LA VEGA WATER SUPERVISOR 09/03/166: CONSULT Date of Consult Date of Consult DATE: 09/03/16 TIME: 20:11 Reason for Consult Reason for Consult: Positive blood cultures Referring Physician Referring Physician: Dr. Weiss Source Source: Chart review, Patient History of Present Illness Reason for Visit: This is a 55 year old quadriplegic who was sent to ER from [facility] for fever and increase confusion. Lab work-up revealed bandemia with a normal lactic acid and creatinine. She was febrile and hypotensive requiring vasopressor support. UA was suggestive of infection. UC GNR x 2 spp and BC return with GNR. She has a chronic indwelling Arciniega that has been needing to be changed every couple of days or so due to thick sediment clogging the tube. Most recently changed at [facility] on 08/31. Past Medical History Past Medical History C. difficile. Chronic sacral decubitus ulcer Quadriplegia Seizure disorder A-fib GERD Depression Hypertension Osteomyelitis Chronic pain syndrome Hypothyroidism Protein-calorie malnutrition Past Surgical History Past Surgical History Cholecystomy G-tube placement and dislodgement Cervical spine surgery with hardware Family History Family History Noncontributory Social History Social History [place] resident Nonsmoker Current Problem List Problem List Problems Medical Problems: (1) Sepsis Status: Acute (2) UTI (urinary tract infection) Status: Acute Current Medications Current Medications Vancomycin Zosyn Other meds are available and have been reviewed Allergies Allergies: Coded Allergies: ciprofloxacin (Verified Allergy, Intermediate, 09/02/16) ROS Review of System c/o neck pain and abdominal pain Denies N/V/D Denies cough, SOA and CP Total dependent of ADLs. Physical Exam Physical Exam GENERAL: Alert, watching TV, NAD HENT: Normal conjunctivae. Oral cavity clear. Missing teeth LUNGS: CTAB HEART: Normal S1 S2 ABDOMEN: Distended, BS present, soft, RUQ tenderness. : Arciniega EXT: BLE trace edema. No cyanosis SKIN: without rash. Large sacral decub. (refer to chart for further description & pictures). ALUMINUM SIDING INSTALLER: Alert, responds appropriately, poor historian IV: ok Vitals VITALS Vital Signs Date Time Temp Pulse Resp B/P Pulse Ox O2 Delivery O2 Flow Rate FiO2 09/03/16 18:00 91 19 95/57 97 Nasal Cannula 1.0 09/03/16 16:00 99.0 99.0 Labs Labs BLOOD CULTURE Final GRAM NEGATIVE RODS, IN 1 OF 4 BOTTLES, TWO SETS DRAWN. CALLED TO EMMY IN ICU AT 7:05 ON 09/03/16 DW MT SENT TO [facility] FOR FURTHER WORKUP. NOW IN THE SECOND BOTTLE OF THIS SET 2 OF 4 BOTTLES, ONE SET POSITIVE URINE CULTURE Preliminary Preliminary report URINE CULTURE RES 1 Preliminary Gram negative rods Greater than 100,000 colony forming units per mL URINE CULTURE RES 2 Preliminary Gram negative rods Laboratory Tests Test 09/02/16 13:50 09/02/16 14:30 09/03/16 04:00 09/03/16 11:55 Urine Collection Type Unknown Urine Color Oxana Urine Clarity Turbid Urine pH 7.0 Urine Specific Arab 1.010 Urine Protein 100mg/dL (NEG-TRACE) Urine Glucose (UA) Negativemg/dL (NEG) Urine Ketones (Stick) Tracemg/dL (NEG) Urine Blood Moderate (NEG) Urine Nitrite Positive (NEG) Urine Bilirubin Negative (NEG) Urine Urobilinogen Dipstick 2.0mg/dL (0.2 mg/dL) Urine Leukocyte Esterase Large (NEG) Urine RBC 6-10/HPF (0-2) Urine WBC Tntc/HPF (0-4) Urine Bacteria Many/HPF (0-FEW) Urine Test Negative (NEG) Influenza Type A Antigen Negative (NEGATIVE) Influenza Type B Antigen Negative (NEGATIVE) White Blood Count 9.9x10^3/uL (4.0-11.0) 6.3x10^3/uL (4.0-11.0) Red Blood Count 3.74x10^6/uL (3.50-5.40) 3.13x10^6/uL (3.50-5.40) Hemoglobin 10.1g/dL (12.0-15.5) 8.4g/dL (12.0-15.5) Hematocrit 30.9% (36.0-47.0) 26.2% (36.0-47.0) Mean Corpuscular Volume 83fL (79-100) 84fL (79-100) Mean Corpuscular Hemoglobin 27pg (25-35) 27pg (25-35) Mean Corpuscular Hemoglobin Concent 33g/dL (31-37) 32g/dL (31-37) Red Cell Distribution Width 17.4% (11.5-14.5) 17.7% (11.5-14.5) Platelet Count 285x10^3/uL (140-400) 211x10^3/uL (140-400) Neutrophils (%) (Auto) 89% (31-73) 88% (31-73) Lymphocytes (%) (Auto) 5% (24-48) 6% (24-48) Monocytes (%) (Auto) 6% (0-9) 6% (0-9) Eosinophils (%) (Auto) 0% (0-3) 0% (0-3) Basophils (%) (Auto) 0% (0-3) 0% (0-3) Neutrophils # (Auto) 8.8x10^3uL (1.8-7.7) 5.5x10^3uL (1.8-7.7) Lymphocytes # (Auto) 0.5x10^3/uL (1.0-4.8) 0.4x10^3/uL (1.0-4.8) Monocytes # (Auto) 0.6x10^3/uL (0.0-1.1) 0.4x10^3/uL (0.0-1.1) Eosinophils # (Auto) 0.0x10^3/uL (0.0-0.7) 0.0x10^3/uL (0.0-0.7) Basophils # (Auto) 0.0x10^3/uL (0.0-0.2) 0.0x10^3/uL (0.0-0.2) Segmented Neutrophils % 62% (35-66) Band Neutrophils % 27% (0-9) Lymphocytes % 6% (24-48) Monocytes % 5% (0-10) Toxic Granulation Slight Platelet Estimate Adequate (ADEQUATE) Polychromasia Slight Anisocytosis Slight Prothrombin Time 17.3SEC (11.7-14.0) Prothromb Time International Ratio 1.5 (0.8-1.1) Activated Partial Thromboplast Time 43SEC (24-38) Sodium Level 139mmol/L (136-145) 138mmol/L (136-145) Potassium Level 4.0mmol/L (3.5-5.1) 2.6mmol/L (3.5-5.1) 3.0mmol/L (3.5-5.1) Chloride Level 101mmol/L (98-107) 104mmol/L (98-107) Carbon Dioxide Level 28mmol/L (21-32) 25mmol/L (21-32) Anion Gap 10 (6-14) 9 (6-14) Blood Urea Nitrogen 24mg/dL (7-20) 18mg/dL (7-20) Creatinine 0.8mg/dL (0.6-1.0) 0.6mg/dL (0.6-1.0) Estimated GFR (Cockcroft-Gault) 74.5 103.8 BUN/Creatinine Ratio 30 (6-20) Glucose Level 115mg/dL (70-99) 130mg/dL (70-99) Lactic Acid Level 1.2mmol/L (0.4-2.0) Calcium Level 9.7mg/dL (8.5-10.1) 8.5mg/dL (8.5-10.1) Total Bilirubin 0.8mg/dL (0.2-1.0) Aspartate Amino Transf (AST/SGOT) 32U/L (15-37) Alanine Aminotransferase (ALT/SGPT) 16U/L (14-59) Alkaline Phosphatase 98U/L (46-116) Total Protein 7.5g/dL (6.4-8.2) Albumin 2.1g/dL (3.4-5.0) Albumin/Globulin Ratio 0.4 (1.0-1.7) Laboratory Tests Test 09/03/16 04:00 09/03/16 11:55 White Blood Count 6.3x10^3/uL (4.0-11.0) Red Blood Count 3.13x10^6/uL (3.50-5.40) Hemoglobin 8.4g/dL (12.0-15.5) Hematocrit 26.2% (36.0-47.0) Mean Corpuscular Volume 84fL (79-100) Mean Corpuscular Hemoglobin 27pg (25-35) Mean Corpuscular Hemoglobin Concent 32g/dL (31-37) Red Cell Distribution Width 17.7% (11.5-14.5) Platelet Count 211x10^3/uL (140-400) Neutrophils (%) (Auto) 88% (31-73) Lymphocytes (%) (Auto) 6% (24-48) Monocytes (%) (Auto) 6% (0-9) Eosinophils (%) (Auto) 0% (0-3) Basophils (%) (Auto) 0% (0-3) Neutrophils # (Auto) 5.5x10^3uL (1.8-7.7) Lymphocytes # (Auto) 0.4x10^3/uL (1.0-4.8) Monocytes # (Auto) 0.4x10^3/uL (0.0-1.1) Eosinophils # (Auto) 0.0x10^3/uL (0.0-0.7) Basophils # (Auto) 0.0x10^3/uL (0.0-0.2) Sodium Level 138mmol/L (136-145) Potassium Level 2.6mmol/L (3.5-5.1) 3.0mmol/L (3.5-5.1) Chloride Level 104mmol/L (98-107) Carbon Dioxide Level 25mmol/L (21-32) Anion Gap 9 (6-14) Blood Urea Nitrogen 18mg/dL (7-20) Creatinine 0.6mg/dL (0.6-1.0) Estimated GFR (Cockcroft-Gault) 103.8 Glucose Level 130mg/dL (70-99) Calcium Level 8.5mg/dL (8.5-10.1) Images Images Abdominal ultrasound, 09/02/2016: History: Abdominal pain, UTI The gallbladder is surgically absent. The common hepatic duct measures approximately 1 cm which is at the upper limits of normal in size for the postcholecystectomy state. No intrahepatic biliary ductal dilatation is seen. There is a small 1.4 cm cyst in the liver. The liver is otherwise unremarkable. The visualized portions of the pancreas show no abnormality. The spleen is of normal size. The kidneys are of normal size and show no evidence of obstruction. The upper abdominal aorta is of normal caliber. It is obscured distally due to overlying bowel. The visualized portions of the inferior vena cava are unremarkable. No free fluid is evident in the abdomen. IMPRESSION: 1. Status post cholecystectomy. 2. Small hepatic cyst. 3. No acute abnormality is detected. Assessment/Plan Assessment/Plan Septic shock with GNR bacteremia. POA -Fever -bandemia GNR UTI. POA -chronic Arciniega. changed SNF 08/31 RUQ abdominal pain Cipro allergy. hives h/o C. diff Chronic sacral decubitus ulcer Seizure disorder A-fib Continue Vanc and Zosyn Await GNR ID/sensitivities Monitor labs Off load Thank you KELTON DYER MD 09/03/16 1313: CONSULT Allergies Allergies: Coded Allergies: ciprofloxacin (Verified Allergy, Intermediate, 09/02/16) Assessment/Plan Assessment/Plan Patient seen and examined. Chart reviewed. Case discussed with RESIDENTIAL DIRECTOR. Agree with above plan. BAIRON DE LA VEGA APRN Sep 03, 2016 21:26 KELTON DYER MD Sep 03, 2016 23:07
[2016-09-04] VITALS (14 sets, daily range): BP systolic 71–143; BP diastolic 42–88
[2016-09-04] MEDS: PIPERACILLIN/TAZOBACTAM 4.5 GM in IV NORMAL SALINE 100ML 100 ML IV SCH ×4 (00:27→17:37)
[2016-09-04] MEDS: IV NORMAL SALINE 1000ML BAG 1,000 ML IV SCH ×2 (00:28→08:35)
[2016-09-04] MEDS: OXYCODONE IR 5 MG TABLET. PO PRN ×3 (02:26→20:41)
[2016-09-04] MEDS: MORPHINE SULFATE 2 MG/ML DISP.SYRIN. IV PRN ×2 (03:39→15:43)
[2016-09-04 04:40] LABS: BASO % 0 % (0-3); EOS % 2 % (0-3); HEMATOCRIT 25.2 % (36.0-47.0); LYMPH # 0.5 x10^3/uL (1.0-4.8); LYMPH % 13 % (24-48); MEAN CORPUSCULAR HEMOGLOBIN 27 pg (25-35); MEAN CORPUSCULAR HGB CONC 32 g/dL (31-37); MEAN CORPUSCULAR VOLUME 84 fL (79-100); MONO % 9 % (0-9); NEUT % 77 % (31-73); PLATELET COUNT 185 x10^3/uL (140-400); RED CELL DISTRIBUTION WIDTH 17.3 % (11.5-14.5); WHITE BLOOD COUNT 3.7 x10^3/uL (4.0-11.0)
[2016-09-04 05:10] LABS: ALBUMIN 1.5 g/dL (3.4-5.0); ALBUMIN/GLOBULIN RATIO 0.4 (1.0-1.7); C-REACTIVE PROTEIN 215.9 mg/L (0-3.3); CALCIUM 7.4 mg/dL (8.5-10.1); CREATININE 0.6 mg/dL (0.6-1.0); GFR 103.8; TOTAL BILIRUBIN 0.4 mg/dL (0.2-1.0); TOTAL PROTEIN 5.1 g/dL (6.4-8.2)
[2016-09-04 05:18] LABS: POTASSIUM 2.9 mmol/L (3.5-5.1)
[2016-09-04] MEDS: VANCOMYCIN PER PHARMACY MC PRN ×2 (05:40→09:42)
[2016-09-04] MEDS: POTASSIUM CHLORIDE 20 MEQ/15 ML ORAL LIQUID. PO SCH ×2 (05:42→08:05)
[2016-09-04] MEDS: MIDODRINE 5 MG TABLET PO SCH ×3 (06:27→17:39)
[2016-09-04] MEDS: CLONAZEPAM 0.5 MG TABLET PO SCH ×3 (08:09→20:35)
[2016-09-04] MEDS: PANTOPRAZOLE 40 MG TABLET. PO SCH (08:12)
[2016-09-04] MEDS: VANCOMYCIN 1 GM in IV NORMAL SALINE 250ML 250 ML IV SCH ×2 (10:26→21:00)
[2016-09-04] MEDS ORDERED: MAGNESIUM SULFATE 2GM 50 ML IV ONE (11:00)
[2016-09-04] MEDS: POTASSIUM CHLORIDE 20 MEQ TABLET.ER. PO SCH ×2 (11:12→17:38)
--- NOTE | 2016-09-04 11:40 | PDOC ---
Infectious Disease Note Subjective Subjective Tired. Requesting Fixodent. Abdominal pain better Off pressor support ROS ROS GEN: Denies fevers, chills, sweats HEENT: Denies difficulty swallowing CV: Denies chest pain RESP: Denies shortness of air, cough GI: Denies n/v/d Vital Sign Vital Signs Vital Signs Date Time Temp Pulse Resp B/P Pulse Ox O2 Delivery O2 Flow Rate FiO2 09/04/16 11:00 78 16 111/62 97 Nasal Cannula 1.0 09/04/16 10:00 Physical Exam PHYSICAL EXAM GENERAL: Alert, watching TV, NAD HENT: Normal conjunctivae. Oral cavity clear. Missing teeth/edentulous. Upper dentures LUNGS: CTAB HEART: Normal S1 S2 ABDOMEN: Distended, BS present, soft, nontender : Arciniega EXT: BLE 1+ edema. No cyanosis SKIN: without rash. Large sacral decub. (refer to chart for further description & pictures). MANAGER BANK: Alert, responds appropriately IV: ok Labs Lab Laboratory Tests Test 09/03/16 11:55 09/03/16 20:10 09/04/16 04:25 Potassium Level 3.0mmol/L (3.5-5.1) 3.2mmol/L (3.5-5.1) 2.9mmol/L (3.5-5.1) White Blood Count 3.7x10^3/uL (4.0-11.0) Red Blood Count 3.00x10^6/uL (3.50-5.40) Hemoglobin 8.0g/dL (12.0-15.5) Hematocrit 25.2% (36.0-47.0) Mean Corpuscular Volume 84fL (79-100) Mean Corpuscular Hemoglobin 27pg (25-35) Mean Corpuscular Hemoglobin Concent 32g/dL (31-37) Red Cell Distribution Width 17.3% (11.5-14.5) Platelet Count 185x10^3/uL (140-400) Neutrophils (%) (Auto) 77% (31-73) Lymphocytes (%) (Auto) 13% (24-48) Monocytes (%) (Auto) 9% (0-9) Eosinophils (%) (Auto) 2% (0-3) Basophils (%) (Auto) 0% (0-3) Neutrophils # (Auto) 2.9x10^3uL (1.8-7.7) Lymphocytes # (Auto) 0.5x10^3/uL (1.0-4.8) Monocytes # (Auto) 0.3x10^3/uL (0.0-1.1) Eosinophils # (Auto) 0.1x10^3/uL (0.0-0.7) Basophils # (Auto) 0.0x10^3/uL (0.0-0.2) Erythrocyte Sedimentation Rate 90 (0-25) Sodium Level 139mmol/L (136-145) Chloride Level 107mmol/L (98-107) Carbon Dioxide Level 23mmol/L (21-32) Anion Gap 9 (6-14) Blood Urea Nitrogen 9mg/dL (7-20) Creatinine 0.6mg/dL (0.6-1.0) Estimated GFR (Cockcroft-Gault) 103.8 BUN/Creatinine Ratio 15 (6-20) Glucose Level 146mg/dL (70-99) Calcium Level 7.4mg/dL (8.5-10.1) Magnesium Level 1.6mg/dL (1.8-2.4) Total Bilirubin 0.4mg/dL (0.2-1.0) Aspartate Amino Transf (AST/SGOT) 17U/L (15-37) Alanine Aminotransferase (ALT/SGPT) 7U/L (14-59) Alkaline Phosphatase 72U/L (46-116) C-Reactive Protein, Quantitative 215.9mg/L (0-3.3) Total Protein 5.1g/dL (6.4-8.2) Albumin 1.5g/dL (3.4-5.0) Albumin/Globulin Ratio 0.4 (1.0-1.7) Vancomycin Level Trough 23.1mcg/mL (10.0-20.0) Vancomycin Last Dose Date 09/03/16 Vancomycin Last Dose Time 1700 Micro BLOOD CULTURE Final GRAM NEGATIVE RODS, IN 3 OF 4 BOTTLES, URINE CULTURE RES 1 Preliminary Gram negative rods URINE CULTURE RES 2 Preliminary Gram negative rods Objective Assessment Septic shock with GNR bacteremia. POA -Fever. better -bandemia. now leukopenia -Hypotension. off pressors GNR UTI. POA -chronic Arciniega. changed SNF 08/31 RUQ abdominal pain. better Cipro allergy. hives h/o C. diff Chronic sacral decubitus ulcer Seizure disorder A-fib Plan Plan of Care cecelia and Farzaneh Await GNR ID/sensitivities Monitor labs Off load D/w with Dr. Weiss Late entry: Patient seen and examined on 09/04/15. Chart reviewed. Case discussed with BLOW MOULDING MACHINE OPERATOR. Agree with above plan BAIRON DE LA VEGA APRN Sep 04, 2016 11:40 KELTON DYER MD Sep 08, 2016 16:03
[2016-09-04] MEDS ORDERED: SIMETHICONE 80 MG TAB.CHEW PO PRN (15:45)
[2016-09-04] MEDS: ONDANSETRON ODT 4 MG TAB.RAPDIS PO PRN (15:47)
[2016-09-04] MEDS: ENOXAPARIN 40 MG/0.4 ML DISP.SYRIN. SQ SCH (17:37)
--- NOTE | 2016-09-04 20:57 | PN ---
DATE: 09/04/2016 SUBJECTIVE: The patient is resting, slightly propped up in her recliner in no apparent distress. She is sleepy, but arousable. On questioning her, denied any complaint. The nursing staff is concerned about her potassium as she does not seem to have any nausea, vomiting or diarrhea. She is not on any diuretics. PHYSICAL EXAMINATION: GENERAL: When I examined her this morning, she was extremely pale, but no jaundice, cyanosis or thyromegaly. No jugular venous distention. No limb edema. VITAL SIGNS: Her heart rate was 84, blood pressure was 104/66, temperature was 98.8, respiratory rate 19 and oxygen saturation was 97% on 1 liter of oxygen. HEAD, EYES, EARS, NOSE AND THROAT: Showed normocephalic, atraumatic. NECK: Supple. HEART: Showed normal first and second heart sounds with no gallop, rub or murmur. CHEST: Clear to auscultation. No crepitation or rhonchi. ABDOMEN: Distended, soft, nontender. No guarding or rigidity. No organomegaly. Hernial orifices intact. Bowel sounds normal. NEUROLOGIC: She is sleepy, but arousable. All cranial nerves intact. She has quadriplegia with marked muscle wasting ____ contraction in all for limbs. She has stage 4 decubitus ulcer. Her intake over the last 24 hours was 3800, output was 1814. LABORATORY DATA: This morning showed a serum sodium 139, potassium 2.9, chloride 107, bicarbonate 23, anion gap of 9, BUN 9, creatinine 0.6, estimated GFR was 104 mL per minute. Her glucose 146, calcium 7.4. Total bilirubin, AST, ALT, alkaline phosphatase were normal. Her sedimentation rate was ____ mg/dL, total protein was 5.1, albumin was 1.5. Her white cell count was 3,700, hemoglobin 8, hematocrit 25, MCV 84 and platelet count of 185,000. Her sedimentation rate was 90 ____ mm/hour. ASSESSMENT: 1. Altered mental status, fever and confusion. 2. She was found to have urinary tract infection growing gram-negative rods. The identification, sensitivity is still pending at the time of this dictation. 3. Quadriplegia with neurogenic bladder. 4. Chronic anemia. 5. Hypothyroidism. 6. Gastroesophageal reflux disease. 7. Seizure disorder. 8. Previous history of C. diff colitis. She is also known to have hepatitis and osteomyelitis. Her gastrostomy tube was dislodged accidentally. PLAN: My plan is to check her lab work. I will increase her potassium to 40 mEq 3 times a day scheduled. We will check her magnesium and repeat her labs tomorrow. MARY LOU YOUNG MD DR: BASIM/tom JOB#: [id number] / [id number]
[2016-09-05] VITALS (8 sets, daily range): BP systolic 80–165; BP diastolic 41–109
[2016-09-05] MEDS: HYDROCODONE/APAP 5/325MG TABLET. PO PRN ×2 (00:32→20:21)
[2016-09-05] MEDS: ONDANSETRON ODT 4 MG TAB.RAPDIS PO PRN (00:32)
[2016-09-05] MEDS: PIPERACILLIN/TAZOBACTAM 4.5 GM in IV NORMAL SALINE 100ML 100 ML IV SCH ×4 (00:39→17:50)
[2016-09-05] MEDS: POTASSIUM CHLORIDE 20 MEQ TABLET.ER. PO SCH ×4 (00:56→17:50)
[2016-09-05] MEDS: IV NORMAL SALINE 1000ML BAG 1,000 ML IV SCH ×3 (01:00→17:51)
[2016-09-05 05:45] LABS: BASO # 0.1 x10^3/uL (0.0-0.2); BASO % 1 % (0-3); EOS % 5 % (0-3); HEMATOCRIT 25.1 % (36.0-47.0); HEMOGLOBIN 8.2 g/dL (12.0-15.5); LYMPH # 1.3 x10^3/uL (1.0-4.8); LYMPH % 25 % (24-48); MEAN CORPUSCULAR HEMOGLOBIN 27 pg (25-35); MEAN CORPUSCULAR HGB CONC 33 g/dL (31-37); MEAN CORPUSCULAR VOLUME 81 fL (79-100); MONO % 14 % (0-9); NEUT % 56 % (31-73); PLATELET COUNT 195 x10^3/uL (140-400); RED CELL DISTRIBUTION WIDTH 17.8 % (11.5-14.5); WHITE BLOOD COUNT 5.1 x10^3/uL (4.0-11.0)
[2016-09-05] MEDS: PANTOPRAZOLE 40 MG TABLET. PO SCH (06:05)
[2016-09-05] MEDS: MIDODRINE 5 MG TABLET PO SCH ×3 (06:06→17:48)
[2016-09-05 06:39] LABS: ALBUMIN 1.5 g/dL (3.4-5.0); ALBUMIN/GLOBULIN RATIO 0.3 (1.0-1.7); CALCIUM 8.1 mg/dL (8.5-10.1); CREATININE 0.5 mg/dL (0.6-1.0); GFR 128.1; MAGNESIUM 1.7 mg/dL (1.8-2.4); POTASSIUM 4.6 mmol/L (3.5-5.1); TOTAL BILIRUBIN 0.5 mg/dL (0.2-1.0); TOTAL PROTEIN 5.8 g/dL (6.4-8.2)
[2016-09-05] MEDS: CLONAZEPAM 0.5 MG TABLET PO SCH ×3 (09:22→20:18)
[2016-09-05] MEDS: VANCOMYCIN 1 GM in IV NORMAL SALINE 250ML 250 ML IV SCH (09:27)
--- NOTE | 2016-09-05 09:33 | PDOC ---
Infectious Disease Note Subjective Subjective Better and asking when she can go home ROS ROS GEN: Denies fevers, chills, sweats HEENT: Denies blurred vision, sore throat CV: Denies chest pain RESP: Denies shortness of air, cough GI: Denies n/v/d NEURO: Denies confusion, dizziness MSK: Denies weakness, joint pain/swelling Vital Sign Vital Signs Vital Signs Date Time Temp Pulse Resp B/P Pulse Ox O2 Delivery O2 Flow Rate FiO2 09/05/16 07:00 98.0 81 20 143/100 95 Room Air 98.0 09/04/16 20:41 1.0 Physical Exam PHYSICAL EXAM GENERAL: Alert, watching TV, NAD HENT: Normal conjunctivae. Oral cavity clear. Missing teeth/edentulous. Upper dentures LUNGS: CTAB HEART: Normal S1 S2 ABDOMEN: Distended, BS present, soft, nontender : [place] EXT: BLE 1+ edema. No cyanosis SKIN: without rash. Large sacral decub. (refer to chart for further description & pictures). GARMENT SEWER HAND: Alert, responds appropriately IV: ok Labs Lab Laboratory Tests Test 09/05/16 05:10 White Blood Count 5.1x10^3/uL (4.0-11.0) Red Blood Count 3.10x10^6/uL (3.50-5.40) Hemoglobin 8.2g/dL (12.0-15.5) Hematocrit 25.1% (36.0-47.0) Mean Corpuscular Volume 81fL (79-100) Mean Corpuscular Hemoglobin 27pg (25-35) Mean Corpuscular Hemoglobin Concent 33g/dL (31-37) Red Cell Distribution Width 17.8% (11.5-14.5) Platelet Count 195x10^3/uL (140-400) Neutrophils (%) (Auto) 56% (31-73) Lymphocytes (%) (Auto) 25% (24-48) Monocytes (%) (Auto) 14% (0-9) Eosinophils (%) (Auto) 5% (0-3) Basophils (%) (Auto) 1% (0-3) Neutrophils # (Auto) 2.9x10^3uL (1.8-7.7) Lymphocytes # (Auto) 1.3x10^3/uL (1.0-4.8) Monocytes # (Auto) 0.7x10^3/uL (0.0-1.1) Eosinophils # (Auto) 0.3x10^3/uL (0.0-0.7) Basophils # (Auto) 0.1x10^3/uL (0.0-0.2) Sodium Level 142mmol/L (136-145) Potassium Level 4.6mmol/L (3.5-5.1) Chloride Level 110mmol/L (98-107) Carbon Dioxide Level 25mmol/L (21-32) Anion Gap 7 (6-14) Blood Urea Nitrogen 5mg/dL (7-20) Creatinine 0.5mg/dL (0.6-1.0) Estimated GFR (Cockcroft-Gault) 128.1 BUN/Creatinine Ratio 10 (6-20) Glucose Level 78mg/dL (70-99) Calcium Level 8.1mg/dL (8.5-10.1) Magnesium Level 1.7mg/dL (1.8-2.4) Total Bilirubin 0.5mg/dL (0.2-1.0) Aspartate Amino Transf (AST/SGOT) 16U/L (15-37) Alanine Aminotransferase (ALT/SGPT) 12U/L (14-59) Alkaline Phosphatase 93U/L (46-116) Total Protein 5.8g/dL (6.4-8.2) Albumin 1.5g/dL (3.4-5.0) Albumin/Globulin Ratio 0.3 (1.0-1.7) Micro Escherichia coli Greater than 100,000 colony forming units per mL URINE CULTURE RES 2 Preliminary Gram negative rods 10,000-25,000 colony forming units per mL ANTIMICROBIAL SUSCEPTIBILITY Preliminary Comment S = Susceptible; I = Intermediate; R = Resistant P = Positive; N = Negative MICS are expressed in micrograms per mL Antibiotic RSLT#1 RSLT#2 RSLT#3 RSLT#4 Amoxicillin/Clavulanic Acid S Ampicillin S Cefepime S Ceftriaxone S Cefuroxime S Cephalothin S Ciprofloxacin S Ertapenem S Gentamicin S Imipenem S Levofloxacin S Nitrofurantoin S Piperacillin S Tetracycline S Tobramycin S Trimethoprim/Sulfa S Objective Assessment Septic shock with GNR bacteremia. POA Cipro allergy -small rash -Fever. better -bandemia. now leukopenia -Hypotension. off pressors Ecoli UTI. POA -chronic Arciniega. changed SNF 08/31 RUQ abdominal pain. better Cipro allergy. hives h/o C. diff Chronic sacral decubitus ulcer Seizure disorder A-fib Plan Plan of Care D/c vanc Cont Zosyn Await GNR ID/sensitivities from blood Monitor labs Off load D/w with DIMAS Rivas MD Sep 05, 2016 09:33
[2016-09-05] MEDS: ACETAMINOPHEN 325 MG TABLET. PO PRN (09:59)
[2016-09-05] MEDS: OXYCODONE IR 5 MG TABLET. PO PRN (13:39)
[2016-09-05] MEDS: MORPHINE SULFATE 2 MG/ML DISP.SYRIN. IV PRN (16:08)
[2016-09-05] MEDS ORDERED: POTASSIUM CHLORIDE 20 MEQ TABLET.ER. PO SCH (17:00)
[2016-09-05] MEDS: ENOXAPARIN 40 MG/0.4 ML DISP.SYRIN. SQ SCH (17:50)
--- NOTE | 2016-09-06 00:42 | PN ---
DATE: 09/05/2016 SUBJECTIVE: The patient is resting slightly propped up in bed, in no apparent distress. On questioning her, denied any complaint and she wants to go back to [facility]. She apparently has gram-negative rods in the blood, the identification and sensitivity is still pending. She did grew E. coli from her urine culture for which she is on Zosyn. PHYSICAL EXAMINATION: GENERAL: When I examined her today, she was pale. No jaundice, cyanosis or thyromegaly. No jugular venous distention. No limb edema. VITAL SIGNS: Her heart rate was 81, blood pressure 143/100, temperature was 98, respiratory rate was 20, and oxygen saturation was 95% on room air. HEAD, EYES, EARS, NOSE AND THROAT: Showed normocephalic, atraumatic. NECK: Supple. HEART: Showed normal first and second heart sounds with no gallop, rub or murmur. CHEST: Clear to auscultation. No crepitation or rhonchi. ABDOMEN: Distended, soft, nontender. No guarding or rigidity. No organomegaly. Hernial orifices intact. Bowel sounds normal. NEUROLOGIC: She is awake, alert, responding appropriately. She has quadriplegia with marked muscle wasting all 4 limbs. She had large sacral decubitus ulcer. Her intake over the last 24 hours was 2000, output was 3230. LABORATORY DATA: This morning showed her white cell count to be 5100, hemoglobin 8.2, hematocrit 25, MCV 81 and platelet count of 195,000. Her chemistry showed a serum sodium 142, potassium 4.6, chloride 110, bicarbonate 25, anion gap of 7, BUN 5, creatinine 0.5, estimated GFR was 128 mL per minute. Her glucose was 78. Calcium was 8.1, magnesium 1.7. Total bilirubin, AST, ALT, alkaline phosphatase are normal. Her total protein was 5.8, albumin was 1.7. ASSESSMENT: Septic shock with gram-negative isauro bacteremia, present on admission. She did grow E. coli from urine culture, did have right upper quadrant abdominal pain that has resolved. Abdominal ultrasound showed that she is status post cholecystectomy. She has chronic sacral decubitus ulcer, seizure disorder, atrial fibrillation, quadriplegia. PLAN: To continue with IV Zosyn. Her vancomycin was discontinued. I will repeat her lab work tomorrow and if we have the result of the gram-negative rods, identification and sensitivity from the blood, we will discharge her back to [facility]. MARY LOU YOUNG MD DR: BASIM/tom JOB#: [id number] / [id number]
[2016-09-06] MEDS: IV NORMAL SALINE 1000ML BAG 1,000 ML IV SCH ×2 (03:48→12:02)
[2016-09-06 04:37] LABS: BASO # 0.1 x10^3/uL (0.0-0.2); BASO % 1 % (0-3); EOS % 5 % (0-3); HEMATOCRIT 26.7 % (36.0-47.0); HEMOGLOBIN 8.5 g/dL (12.0-15.5); LYMPH # 1.2 x10^3/uL (1.0-4.8); LYMPH % 20 % (24-48); MEAN CORPUSCULAR HEMOGLOBIN 27 pg (25-35); MEAN CORPUSCULAR HGB CONC 32 g/dL (31-37); MEAN CORPUSCULAR VOLUME 83 fL (79-100); MONO % 12 % (0-9); NEUT % 62 % (31-73); PLATELET COUNT 225 x10^3/uL (140-400); RED BLOOD COUNT 3.21 x10^6/uL (3.50-5.40); RED CELL DISTRIBUTION WIDTH 18.1 % (11.5-14.5); WHITE BLOOD COUNT 6.2 x10^3/uL (4.0-11.0)
[2016-09-06] MEDS: PIPERACILLIN/TAZOBACTAM 4.5 GM in IV NORMAL SALINE 100ML 100 ML IV SCH ×3 (06:01)
[2016-09-06] MEDS: MIDODRINE 5 MG TABLET PO SCH ×2 (06:02→12:44)
[2016-09-06] MEDS: PANTOPRAZOLE 40 MG TABLET. PO SCH (06:03)
[2016-09-06 07:00] VITALS: BP 144/86
[2016-09-06] MEDS ORDERED: CEFTRIAXONE SODIUM 2 GM in IV NORMAL SALINE 100ML 100 ML IV SCH (08:00)
[2016-09-06] MEDS: POTASSIUM CHLORIDE 20 MEQ TABLET.ER. PO SCH (08:36)
[2016-09-06] MEDS: CLONAZEPAM 0.5 MG TABLET PO SCH ×2 (08:36→12:49)
[2016-09-06] MEDS: MORPHINE SULFATE 2 MG/ML DISP.SYRIN. IV PRN (09:16)
[2016-09-06 09:46] LABS: CALCIUM 8.6 mg/dL (8.5-10.1); CREATININE 0.5 mg/dL (0.6-1.0); GFR 128.1; POTASSIUM 4.5 mmol/L (3.5-5.1)
--- NOTE | 2016-09-06 10:20 | PDOC ---
Infectious Disease Note Subjective Subjective Better and asking when she can go home ROS ROS GEN: Denies fevers, chills, sweats HEENT: Denies blurred vision, sore throat CV: Denies chest pain RESP: Denies shortness of air, cough GI: Denies n/v/d NEURO: Denies confusion, dizziness MSK: Denies weakness, joint pain/swelling Vital Sign Vital Signs Vital Signs Date Time Temp Pulse Resp B/P Pulse Ox O2 Delivery O2 Flow Rate FiO2 09/06/16 09:16 12 Room Air 09/06/16 07:00 98.1 85 144/86 94 1.0 98.1 Physical Exam PHYSICAL EXAM GENERAL: NAD, Alert HEENT: PERRL, OC/OP NECK: Supple, no JVD, no LN LUNGS: Clear HEART: S1S2, no gallop, no murmur ABD: Soft, NT, no organomegaly, no rebound [place]cin[place] EXT: No edema, no cyanosis BURIAL NEEDS SALESPERSON: Alert, oriented x 3, no focal neurologic deficit SKIN: No rash. Vac in place IV: ok Labs Lab Laboratory Tests Test 09/06/16 04:05 White Blood Count 6.2x10^3/uL (4.0-11.0) Red Blood Count 3.21x10^6/uL (3.50-5.40) Hemoglobin 8.5g/dL (12.0-15.5) Hematocrit 26.7% (36.0-47.0) Mean Corpuscular Volume 83fL (79-100) Mean Corpuscular Hemoglobin 27pg (25-35) Mean Corpuscular Hemoglobin Concent 32g/dL (31-37) Red Cell Distribution Width 18.1% (11.5-14.5) Platelet Count 225x10^3/uL (140-400) Neutrophils (%) (Auto) 62% (31-73) Lymphocytes (%) (Auto) 20% (24-48) Monocytes (%) (Auto) 12% (0-9) Eosinophils (%) (Auto) 5% (0-3) Basophils (%) (Auto) 1% (0-3) Neutrophils # (Auto) 3.8x10^3uL (1.8-7.7) Lymphocytes # (Auto) 1.2x10^3/uL (1.0-4.8) Monocytes # (Auto) 0.7x10^3/uL (0.0-1.1) Eosinophils # (Auto) 0.3x10^3/uL (0.0-0.7) Basophils # (Auto) 0.1x10^3/uL (0.0-0.2) Sodium Level 141mmol/L (136-145) Potassium Level 4.5mmol/L (3.5-5.1) Chloride Level 108mmol/L (98-107) Carbon Dioxide Level 25mmol/L (21-32) Anion Gap 8 (6-14) Blood Urea Nitrogen 5mg/dL (7-20) Creatinine 0.5mg/dL (0.6-1.0) Estimated GFR (Cockcroft-Gault) 128.1 Glucose Level 90mg/dL (70-99) Calcium Level 8.6mg/dL (8.5-10.1) Micro Escherichia coli Greater than 100,000 colony forming units per mL URINE CULTURE RES 2 Preliminary Gram negative rods 10,000-25,000 colony forming units per mL ANTIMICROBIAL SUSCEPTIBILITY Preliminary Comment S = Susceptible; I = Intermediate; R = Resistant P = Positive; N = Negative MICS are expressed in micrograms per mL Antibiotic RSLT#1 RSLT#2 RSLT#3 RSLT#4 Amoxicillin/Clavulanic Acid S Ampicillin S Cefepime S Ceftriaxone S Cefuroxime S Cephalothin S Ciprofloxacin S Ertapenem S Gentamicin S Imipenem S Levofloxacin S Nitrofurantoin S Piperacillin S Tetracycline S Tobramycin S Trimethoprim/Sulfa S Objective Assessment Septic shock with Proteus bacteremia. POA Cipro allergy -small rash -Fever. better -bandemia. now leukopenia -Hypotension. off pressors Ecoli/Proteus UTI. POA -chronic Arciniega. changed SNF 08/31 RUQ abdominal pain. better Cipro allergy. hives h/o C. diff Chronic sacral decubitus ulcer - vac in place Seizure disorder A-fib Plan Plan of Care D/c [place] began rocephin this am Can d/c to facility on Cephalexin 500 mg po QID for 7 days to start 09/07 Monitor labs Off load DIMAS HODGES MD Sep 06, 2016 10:20
[2016-09-06 11:00] VITALS: BP 130/79
[2016-09-06] MEDS: OXYCODONE IR 5 MG TABLET. PO PRN (11:54)
[2016-09-06] MEDS: ONDANSETRON ODT 4 MG TAB.RAPDIS PO PRN (12:43)
[2016-09-06 12:44] VITALS: BP 130/79
--- NOTE | 2016-09-06 18:32 | DS ---
DATE OF DISCHARGE: 09/06/2016 HOSPITAL COURSE: The patient is a 55-year-old female patient who was admitted as a transfer from _[facility] where she was found to be febrile, hypotensive and confused. In the Emergency Room, she was found to be septic, was admitted with fever and altered mental status. Her blood pressure was low. She was admitted to ICU, started on IV fluid and IV Levophed and broad spectrum antibiotics. Eventually, she grew gram-negative rods identified as Escherichia coli and Proteus mirabilis. She was treated initially with vancomycin and Zosyn. As the blood culture grew gram negative rods, the vancomycin was discontinued. She continued on Zosyn and her blood culture grew Proteus mirabilis sensitive to cephalosporins. She was given 1 gram of ceftriaxone IV and she was seen today by the infectious disease specialist, who recommended that the patient can be discharged to ____ [facility] to continue treatment with oral cephalexin at 500 mg 4 times a day. PHYSICAL EXAMINATION: GENERAL: When I saw her today, she looked well and was clearly in no apparent respiratory distress, slightly pale, but no jaundice, cyanosis, or thyromegaly. No jugular venous distention. No limb edema. VITAL SIGNS: Her heart rate was 85, blood pressure 144/86, temperature was 98.1, respiratory rate was 18 and oxygen saturation was 94% on 1 liter of oxygen. HEAD, EYES, EARS, NOSE AND THROAT: Showed normocephalic, atraumatic. NECK: Supple. HEART: Showed normal first and second heart sounds with no gallop, rub or murmur. CHEST: Clear to auscultation. No crepitation or rhonchi. ABDOMEN: Distended, soft, nontender. No guarding or rigidity. No organomegaly. Hernial orifices intact. Bowel sounds normal. NEUROLOGIC: She was awake, alert, responding appropriately. Cranial nerves intact. She has quadriplegia with ____ flexion contraction of all four limbs. She has a large sacral decubitus ulcer. LABORATORY DATA: This morning showed a serum sodium 141, potassium 4.5, chloride 108, bicarbonate 25, anion gap of 8, BUN 5, creatinine 0.5. Estimated GFR was 128 mL per minute. Her glucose was 90, calcium was 8.6. Total bilirubin, AST, ALT, alkaline phosphatase were normal. Total protein was 5.8, albumin was 1.5. Her white cell count was 6200, hemoglobin 8.5, hematocrit 26.7, MCV 83 and platelet count ____. Her sedimentation rate was 90 mm per hour. C-reactive protein was ____mg/dL. DISCHARGE MEDICATIONS: The patient will be discharged home to continue on the following medications: Tylenol 650 mg every 4 hours as needed for pain or fever, ascorbic acid 500 mg twice a day, aspirin 81 mg once a day, baclofen 10 mg 3 times a day, bisacodyl 10 mg suppositories rectally as needed for constipation, clonazepam 0.5 mg 3 times a day, divalproex sodium 125 mg twice a day, Colace 100 mg twice a day, famotidine 20 mg at bedtime, fentanyl patch 25 mcg per hour topically q. 72 hours. Fluoxetine 40 mg once a day, iron polysaccharide complex ____ 150 mg once a day, levothyroxine sodium 100 mcg once a day and liothyronine 5 mcg once a day, Meloxicam 15 mg once a day, midodrine 10 mg 3 times a day, mirtazapine ____mg at bedtime, morphine sulfate 30 mg 3 times a day, ondansetron 4 mg every 6 hours as needed for nausea and vomiting, oxybutynin chloride 5 mg 3 times a day, oxycodone 20 mg every 4 hours, simethicone 80 mg 3 times a day with meals and sodium saline nasal spray one spray to each nostril every 6 hours, and zinc sulfate 20 mg once a day. She was also discharged on cephalexin 500 mg 4 times a day for 7 days to start tomorrow. FINAL DISCHARGE DIAGNOSES: 1. Gram-negative septicemia. 2. Urinary tract infection. The patient is known to have quadriplegia, chronic hepatitis, acute hematogenous osteomyelitis, atrial fibrillation, gastroesophageal reflux disease with esophagitis, chronic anemia. She had a history of C. diff colitis before. She has also seizure disorder, chronic constipation and chronic pain syndrome, major depressive disorder, hypothyroidism, severe protein calorie malnutrition and chronic sacral decubitus ulcer. MARY LOU YOUNG MD DR: BASIM/tom JOB#: [id number] / [id number]
== END 2016-09-06 14:28 | DRG 871 ==
LOC: ER 12:38 → 5 NORTH 13:24 → 1 WEST ICU 23:10 → 4 NORTH 09-04 13:41
PROVIDERS: ADMIT Internal Medicine; ATTEND Internal Medicine
PROC: 5A09357 Assistance with Respiratory Ventilation, Less than 24 Consecutive Hours, Continuous Positive Airway Pressure (ICD-10-PCS; principal; 2016-09-03)
DX: A41.50 Gram-negative sepsis, unspecified (principal); G82.50 Quadriplegia, unspecified; R65.21 Severe sepsis with septic shock; E43 Unspecified severe protein-calorie malnutrition; G93.41 Metabolic encephalopathy; N39.0 Urinary tract infection, site not specified; M86.9 Osteomyelitis, unspecified; B96.20 Unspecified Escherichia coli [E. coli] as the cause of diseases classified elsewhere; B96.4 Proteus (mirabilis) (morganii) as the cause of diseases classified elsewhere; K73.9 Chronic hepatitis, unspecified; K21.0 Gastro-esophageal reflux disease with esophagitis; I48.91 Unspecified atrial fibrillation; D64.9 Anemia, unspecified; L89.159 Pressure ulcer of sacral region, unspecified stage; K59.09 Other constipation; G40.909 Epilepsy, unspecified, not intractable, without status epilepticus; G89.4 Chronic pain syndrome; F32.9 Major depressive disorder, single episode, unspecified; E03.9 Hypothyroidism, unspecified; D72.819 Decreased white blood cell count, unspecified; I10 Essential (primary) hypertension; K76.89 Other specified diseases of liver; N31.9 Neuromuscular dysfunction of bladder, unspecified; R13.10 Dysphagia, unspecified; F41.9 Anxiety disorder, unspecified; K59.00 Constipation, unspecified; Z88.1 Allergy status to other antibiotic agents; Z79.899 Other long term (current) drug therapy; Z98.890 Other specified postprocedural states; Z90.49 Acquired absence of other specified parts of digestive tract
CPT/HCPCS: 36415; 71010; 76700; 80048; 80053; 80202; 81001; 81025; 83605; 83735; 84132; 85007; 85027; 85610; 85651; 85730; 86140; 87040; 87086; 87186; 87205; 87641; 87804; 93005; J0696; J1650; J2270; J2405; J2543; J3370; J3480; J7030; J7040; J7050; J7060; Q0162; 92610; 97606; 99285-25

== ENCOUNTER 2016-09-08 17:34 | Observation (INO) | payer OTHER ==
[~2016-09-08] VITALS: Ht 172.7 cm; Wt 68.9 kg
[~2016-09-08 17:34] MED LIST: ACET325T9 PO; ASCO500T2 PO; ASPI81TA2 PO; BACL10TA PO; BISA10SU2 RC; CLON0.5T3 PO; DIVA125T2 PO; DOCU-27 PO; FAMO20TA5 PO; FENT1PAT15 TD; FLUO40CA2 PO; IRON150C3 PO; LEVO100T PO; LIOT5TAB3 PO; MELO-150 PO; MIDO10TA PO; MIRT15TA3 PO; MORP30TA PO; ONDA4TAB12 PO; OXYB5TAB7 PO; OXYC20TA PO; SIME80TA14 PO; SODI14.12 TP; ZINC220C5 PO
[2016-09-08] MEDS ORDERED: NALOXONE 0.4 MG/ML VIAL. IV ONE (18:00)
[2016-09-08 18:03] LABS: BASO # 0.1 x10^3/uL (0.0-0.2); BASO % 1 % (0-3); EOS % 3 % (0-3); HEMATOCRIT 29.1 % (36.0-47.0); HEMOGLOBIN 9.2 g/dL (12.0-15.5); LYMPH # 1.9 x10^3/uL (1.0-4.8); LYMPH % 30 % (24-48); MEAN CORPUSCULAR HEMOGLOBIN 26 pg (25-35); MEAN CORPUSCULAR HGB CONC 32 g/dL (31-37); MEAN CORPUSCULAR VOLUME 84 fL (79-100); MONO % 10 % (0-9); NEUT % 56 % (31-73); PLATELET COUNT 337 x10^3/uL (140-400); RED BLOOD COUNT 3.48 x10^6/uL (3.50-5.40); RED CELL DISTRIBUTION WIDTH 18.1 % (11.5-14.5); WHITE BLOOD COUNT 6.2 x10^3/uL (4.0-11.0)
--- NOTE | 2016-09-08 18:16 | RAD ---
PROCEDURE CT scan of the head without contrast 09/08/2016 HISTORY Unresponsive for 2 days. Encephalopathy. TECHNIQUE Unenhanced contiguous, 5 millimeter axial sections were obtained through the head. One or more of the following individualized dose reduction techniques were utilized for this study: 1. Automated exposure control. 2. Adjustment of the mA and/or kV according to patient size. 3. Use of iterative reconstruction technique. FINDINGS There is generalized parenchymal atrophy. No acute parenchymal abnormality is seen. No extra-axial fluid collection is noted. There is a minimal left mastoid effusion. No skull fracture is seen. IMPRESSION No acute intracranial abnormality is seen. Electronically signed by: Randolph Hayes MD (Sep 08, 2016 18:14:37)
[2016-09-08 18:20] LABS: CALCIUM 9.1 mg/dL (8.5-10.1); CREATININE 0.9 mg/dL (0.6-1.0); POTASSIUM 4.4 mmol/L (3.5-5.1)
[2016-09-08 18:23] LABS: ALBUMIN 1.8 g/dL (3.4-5.0); DIRECT BILIRUBIN 0.2 mg/dL (0.0-0.2); TOTAL BILIRUBIN 0.4 mg/dL (0.2-1.0)
[2016-09-08 18:48] LABS: BILIRUBIN,URINE NEGATIVE (NEG); GLUCOSE,URINE NEGATIVE (NEG); NITRITE,URINE NEGATIVE (NEG); PROTEIN,URINE NEGATIVE (NEG-TRACE); UROBILINOGEN,URINE 0.2 mg/dL (0.2 mg/dL)
--- NOTE | 2016-09-08 18:49 | PHYS DOC ---
Past Medical History Past Medical History: A-Fib, Anemia, Anxiety, Constipation, Depression, GERD, Hypertension, Hypothyroid, Seizure, UTI, Other Additional Past Medical Histor: hepatitis, osteromyelitis, c-diff,quadriplegia , wound back,CHRONIC PAIN Past Surgical History: Other Additional Past Surgical Histo: peg tube placement Alcohol Use: None Drug Use: None Adult General Chief Complaint Chief Complaint: ALTERED MENTAL STATUS HPI HPI 55-year-old female presenting to the emergency department today with unresponsiveness. There was some confusion at the skilled nursing whether the patient had been unresponsive for 2 hours or for 2 days. EMS was unable to clarify this when the went to flower picker the patient. Patient had a fentanyl patch removed by EMS prior to arrival. Onset between 2 hours in 2 days Duration constant No alleviating factors Associated with opioid use. Review of Systems Review of Systems ROS negative for chest pain shortness of breath abdominal pain nausea vomiting. All other review of systems is negative unless otherwise noted in history of present illness. Current Medications Current Medications Current Medications Medications (Trade) Dose Ordered Sig/Nereida Start Time Stop Time Status Last Admin Dose Admin Naloxone HCl (Narcan) 0.4 mg 1X ONCE 09/08/16 18:00 09/08/16 18:01 DC 09/08/16 18:10 0.4 MG Allergies Allergies Allergies Coded Allergies Type Severity Reaction Last Updated Verified ciprofloxacin Allergy Intermediate 09/02/16 Yes Physical Exam Physical Exam Constitutional: Well developed, well nourished, patient is less responsive. Patient is breathing comfortably on room air saturating well. Patient is tolerating secretions without any difficulty. HENT: Normocephalic, atraumatic, bilateral external ears normal, oropharynx moist, no oral exudates, nose normal. Pupils are approximately 4 mm and reactive. Eyes: PERRLA, EOMI, conjunctiva normal, no discharge. [] Neck: Normal range of motion, no tenderness, supple, no stridor. Cardiovascular:Heart rate regular rhythm, no murmur Lungs & Thorax: Bilateral breath sounds clear to auscultation [] Abdomen: Bowel sounds normal, soft, no tenderness, no masses, no pulsatile masses. Skin: Warm, dry, no erythema, no rash. [] Back: No tenderness, no CVA tenderness. Extremities: No tenderness, no cyanosis, no clubbing, ROM intact, no edema. [] Neurologic: Patient opens eyes to sternal rub. She grimaces to questions but is somnolent and infused. Patient is quadriplegic. Psychologic: Affect normal, judgement normal, mood normal. Current Patient Data Vital Signs Vital Signs Date Time Temp Pulse Resp B/P Pulse Ox O2 Delivery O2 Flow Rate FiO2 09/08/16 17:34 97.8 76 20 144/95 100 Nasal Cannula 2 97.8 Lab Values Laboratory Tests Test 09/08/16 17:55 09/08/16 18:33 White Blood Count 6.2x10^3/uL (4.0-11.0) Red Blood Count 3.48x10^6/uL (3.50-5.40) L Hemoglobin 9.2g/dL (12.0-15.5) L Hematocrit 29.1% (36.0-47.0) L Mean Corpuscular Volume 84fL (79-100) Mean Corpuscular Hemoglobin 26pg (25-35) Mean Corpuscular Hemoglobin Concent 32g/dL (31-37) Red Cell Distribution Width 18.1% (11.5-14.5) H Platelet Count 337x10^3/uL (140-400) Neutrophils (%) (Auto) 56% (31-73) Lymphocytes (%) (Auto) 30% (24-48) Monocytes (%) (Auto) 10% (0-9) H Eosinophils (%) (Auto) 3% (0-3) Basophils (%) (Auto) 1% (0-3) Neutrophils # (Auto) 3.5x10^3uL (1.8-7.7) Lymphocytes # (Auto) 1.9x10^3/uL (1.0-4.8) Monocytes # (Auto) 0.6x10^3/uL (0.0-1.1) Eosinophils # (Auto) 0.2x10^3/uL (0.0-0.7) Basophils # (Auto) 0.1x10^3/uL (0.0-0.2) Platelet Estimate Pending Sodium Level 144mmol/L (136-145) Potassium Level 4.4mmol/L (3.5-5.1) Chloride Level 109mmol/L (98-107) H Carbon Dioxide Level 27mmol/L (21-32) Anion Gap 8 (6-14) Blood Urea Nitrogen 9mg/dL (7-20) Creatinine 0.9mg/dL (0.6-1.0) Estimated GFR (Cockcroft-Gault) 65.0 Glucose Level 98mg/dL (70-99) Calcium Level 9.1mg/dL (8.5-10.1) Total Bilirubin 0.4mg/dL (0.2-1.0) Direct Bilirubin 0.2mg/dL (0.0-0.2) Aspartate Amino Transferase (AST) 16U/L (15-37) Alanine Aminotransferase (ALT) 8U/L (14-59) L Alkaline Phosphatase 102U/L (46-116) Troponin I Quantitative 0.121ng/mL (0.000-0.055) JS-Duz-X-Type Natriuretic Peptide 34571sa/mL (0-124) H Total Protein 7.0g/dL (6.4-8.2) Albumin 1.8g/dL (3.4-5.0) L Lipase 49U/L (73-393) L Urine Collection Type Unknown Urine Color Yellow Urine Clarity Clear Urine pH 7.0 Urine Specific [place] <=1.005 Urine Protein Negativemg/dL (NEG-TRACE) Urine Glucose (UA) Negativemg/dL (NEG) Urine Ketones (Stick) Negativemg/dL (NEG) Urine Blood Negative (NEG) Urine Nitrite Negative (NEG) Urine Bilirubin Negative (NEG) Urine Urobilinogen Dipstick 0.2mg/dL (0.2 mg/dL) Urine Leukocyte Esterase Moderate (NEG) Urine RBC Occ/HPF (0-2) Urine WBC 20-40/HPF (0-4) Urine Squamous Epithelial Cells Few/LPF Urine Bacteria 0/HPF (0-FEW) Urine Hyaline Casts Few/HPF Urine Mucus Slight/LPF Urine Yeast Present/HPF Laboratory Tests 09/08/16 17:55 Laboratory Tests 09/08/16 17:55 EKG EKG [] EKG shows sinus rhythm with a regular rate. [place] is normal. Intervals show prolonged QT. ST segments congruent. Radiology/Procedures Radiology/Procedures Head CT negative for acute pathology. [] Course & Med Decision Making Course & Med Decision Making Pertinent Labs and Imaging studies reviewed. (See chart for details) [] 55-year-old female presenting to the emergency department today with unresponsiveness. On initial evaluation the patient was saturating well with a blood pressure of 140. Pulse 76. Afebrile. Physical exam showed a baseline quadriparesis. Otherwise the patient's mental status was quite depressed. Pupils were equal and not pinpoint. The patient was given Narcan which mildly improved the patient's symptoms. CT unremarkable. Blood glucose within normal limits. Blood work sent which showed anemia at 9 otherwise normal WBC. Troponin mildly elevated at 0.121. Otherwise proBNP elevated at 11,000. Urine analysis not suggestive of infection. The patient was protecting her airway in our emergency department and without ventilation compromise. She was subsequently admitted to our ICU for further evaluation workup and care. Neurology and cardiology consulted. Dragon Disclaimer Dragon Disclaimer This electronic medical record was generated, in whole or in part, using a voice recognition dictation system. Departure Departure Impression: Primary Impression: Encephalopathy acute Disposition: ADMITTED INPATIENT Admitting Physician: Phillip Young Condition: STABLE Referrals: PHILLIP YOUNG MD (PCP) HERMANN ALVA MD Sep 08, 2016 18:49
[2016-09-08 18:56] LABS: BACTERIA,URINE 0 /HPF (0-FEW); RBC,URINE OCC /HPF (0-2); SQUAMOUS EPITHELIAL CELL,UR FEW /LPF; WBC,URINE 20-40 /HPF (0-4); YEAST,URINE PRESENT /HPF
[2016-09-08] MEDS ORDERED: MORPHINE SULFATE 2 MG/ML DISP.SYRIN. IV PRN (19:00)
[2016-09-08] MEDS ORDERED: ONDANSETRON PF 4 MG/2 ML VIAL. IV PRN (19:00)
--- NOTE | 2016-09-08 19:42 | ACF ---
[facility] Sep 08, 2016 19:41 HERMANN ALVA MD Sep 11, 2016 06:04
[2016-09-08 20:00] VITALS: BP 98/73
[2016-09-08 20:15] VITALS: BP 76/56
[2016-09-08 20:21] LABS: % EOS 1 % (0-5); ANISOCYTOSIS SLIGHT; PLT ESTIMATE ADEQUATE (ADEQUATE)
[2016-09-08 20:30] VITALS: BP 86/58
[2016-09-08] MEDS: IV NORMAL SALINE 1000ML BAG 1,000 ML IV SCH (20:43)
[2016-09-08 21:00] VITALS: BP 76/49
[2016-09-08 22:00] VITALS: BP 71/54
[2016-09-08 23:00] VITALS: BP 80/52
[2016-09-09] VITALS (13 sets, daily range): BP systolic 72–146; BP diastolic 48–81
[2016-09-09] MEDS ORDERED: INFLUENZA VAX SCREEN BY RX. MC ONE (00:15)
[2016-09-09] MEDS ORDERED: PNEUMOCOCCAL VAX SCREEN BY RX. MC ONE (00:15)
[2016-09-09] MEDS ORDERED: MULT-245 PO (01:48)
[2016-09-09] MEDS ORDERED: CEPH500C PO ×2 (01:49→14:51)
[2016-09-09] MEDS ORDERED: FERR-26 PO (01:53)
[2016-09-09] MEDS ORDERED: ENOX40DI SQ (01:53)
[2016-09-09] MEDS ORDERED: PANT40TA5 PO (01:53)
[2016-09-09] MEDS ORDERED: POTA20TA4 PO (01:53)
[2016-09-09] MEDS ORDERED: OXYC10TA PO (01:53)
[2016-09-09] MEDS: IV NORMAL SALINE 1000ML BAG 1,000 ML IV SCH (04:14)
--- NOTE | 2016-09-09 06:04 | EKG ---
[facility] [address] [place] [address] Test Date: 2016-09-08 Test Time: 18:13:28 Pat Name: FRANCINE GARRIDO Department: Room: 108 1 Gender: F Liver Trimmer: : 1960 Requested By: HERMANN ALVA Order Number: [id number] Reading MD: Ajay Paredes Measurements Intervals Traver Rate: 74 P: 96 LA: 198 QRS: -17 QRSD: 78 T: 18 QT: 454 QTc: 504 Interpretive Statements SINUS RHYTHM NON-SPECIFIC ST/T CHANGES PROLONGED QT Electronically Signed On 09-12-2016 10:08:33 HUMAN [employer]OURCES OFFICE MANAGER by Ajay Paredes
[2016-09-09 06:09] LABS: BASO % 1 % (0-3); EOS % 4 % (0-3); HEMATOCRIT 26.8 % (36.0-47.0); HEMOGLOBIN 8.4 g/dL (12.0-15.5); LYMPH # 1.3 x10^3/uL (1.0-4.8); LYMPH % 26 % (24-48); MEAN CORPUSCULAR HEMOGLOBIN 27 pg (25-35); MEAN CORPUSCULAR HGB CONC 31 g/dL (31-37); MEAN CORPUSCULAR VOLUME 85 fL (79-100); MONO % 9 % (0-9); NEUT % 60 % (31-73); PLATELET COUNT 315 x10^3/uL (140-400); RED BLOOD COUNT 3.15 x10^6/uL (3.50-5.40); RED CELL DISTRIBUTION WIDTH 18.2 % (11.5-14.5)
[2016-09-09 07:02] LABS: ALBUMIN 1.7 g/dL (3.4-5.0); ALBUMIN/GLOBULIN RATIO 0.3 (1.0-1.7); CALCIUM 8.7 mg/dL (8.5-10.1); CREATININE 0.7 mg/dL (0.6-1.0); GFR 86.9; TOTAL BILIRUBIN 0.3 mg/dL (0.2-1.0); TOTAL PROTEIN 6.6 g/dL (6.4-8.2)
--- NOTE | 2016-09-09 07:17 | RAD ---
Indication: Fatigue. Time of exam 1828 hours. Comparison is made with prior chest from 09/02/2016. The heart size is stable. There is some minimal infiltrate or atelectasis in the right base, new since prior. There is no failure. No effusion or pneumothorax is identified. Postop changes in the cervical spine and left clavicle are noted. Impression: Development of patchy right basilar infiltrate or atelectasis since exam 6 days earlier.
[2016-09-09] MEDS: FLU VACC QUAD 2016-17 (36MOS+)/PF 0.5 ML SYRINGE. VAX IM ONE ×2 (09:00→14:15)
[2016-09-09] MEDS ORDERED: PNEUMOC CONJ VACC 23-VALENT 0.5 ML VIAL. VAX IM ONE (09:00)
--- NOTE | 2016-09-09 11:56 | PDOC2 ---
DARIUS BILLS HEALTH SERVICES COORDINATOR 09/09/16 1155: CARDIAC CONSULT DATE OF CONSULT Date of Consult DATE: 09/09/16 TIME: 11:07 REASON FOR CONSULT Reason for Consult: Positive troponin and pro NT BNP REFERRING PHYSICIAN Referring Physician: Veronica SOURCE Source: Chart review, Patient HISTORY OF PRESENT ILLNESS HISTORY OF PRESENT ILLNESS This is a pleasant 55 yo female, now full awake, came in with noted unresponsiveness at the [facility]. Reports no recollection of events leading up to her hospitalization. She was initially noted as confused but then was unresponsive. She has had multiple opioids on board including fentanyl patch. Upon admission she was noted to be hypotensive. A narcan was given and her mentation improved. No recorded info in regards to any hypoxia. Prior to this occurring there was no complains of any CP, SOA, palpitations. She is quadriplegic due to traumatic fall in the past. Reports of any CAD, VTE and reports no hx of AFIB. She was recently discharged from hospital treated for UTI with bacteremia. PAST MEDICAL HISTORY Cardiovascular: AFIB (?), HTN, Other (murmur) Pulmonary: No pertinent hx CENTRAL NERVOUS SYSTEM: Seizure GI: GERD Heme/Onc: Anemia NOS Hepatobiliary: Hep A/B/C (chronic hepatitis- C) Psych: Anxiety, Depression Musculoskeletal: Osteoarthritis, Other (acute hematogenous osteomyelitis; quadriplegia; chronic pain syndrome) Infectious disease: Other (C-Diff; recent bacteremia) ENT: No pertinent hx Renal/: UTI Endocrine: Hypothyroidism Dermatology: Other (sacral ulcer) PAST SURGICAL HISTORY Past Surgical History: Cholecystectomy, Other (G-tube placement; cervical fusion) FAMILY HISTORY Family History: Family History Unknown SOCIAL HISTORY Smoke: No ALCOHOL: none Drugs: None Lives: Skilled Nursing CURRENT MEDICATIONS CURRENT MEDICATIONS Current Medications Medications (Trade) Dose Ordered Sig/Nereida Route PRN Reason Start Time Stop Time Status Last Admin Dose Admin Naloxone HCl 0.4 mg 0.4 mg 1X ONCE IV 09/08/16 18:00 09/08/16 18:01 DC 09/08/16 18:10 Sodium Chloride (Iv Sodium Chloride 0.9% 1000ml Bag) 1,000 ml @ 100 mls/hr Q10H IV 09/08/16 18:49 09/09/16 18:48 09/09/16 04:14 ALLERGIES ALLERGIES: Coded Allergies: ciprofloxacin (Verified Allergy, Intermediate, 09/02/16) ROS Review of System Limited, poor recollection of events. PHYSICAL EXAM General: Alert, Oriented X3, Cooperative, No acute distress HEENT: Atraumatic, Mucous membr. moist/pink Lungs: Other (bibasilar crackles more to right) Heart: Regular rate (SR without significant ectopies overnight), Normal S1, Normal S2, Other (3/6 systolic murmur to ELAYNE border) Abdomen: Soft, No tenderness Extremities: No cyanosis, Other (Trace LE edema) Skin: Other (sacral ulcer) Neuro: Normal speech, Sensation intact Psych/Mental Status: Mental status NL, Mood NL MUSCULOSKELETAL: Osteoarthritic changes both hands VITALS VITALS Vital Signs Date Time Temp Pulse Resp B/P Pulse Ox O2 Delivery O2 Flow Rate FiO2 09/09/16 10:00 82 24 141/67 99 Nasal Cannula 2.0 09/09/16 08:00 98.1 98.1 LABS Lab: Laboratory Tests Test 09/08/16 17:55 09/08/16 18:33 09/09/16 00:40 09/09/16 05:30 White Blood Count 6.2x10^3/uL (4.0-11.0) 5.0x10^3/uL (4.0-11.0) Red Blood Count 3.48x10^6/uL (3.50-5.40) 3.15x10^6/uL (3.50-5.40) Hemoglobin 9.2g/dL (12.0-15.5) 8.4g/dL (12.0-15.5) Hematocrit 29.1% (36.0-47.0) 26.8% (36.0-47.0) Mean Corpuscular Volume 84fL (79-100) 85fL (79-100) Mean Corpuscular Hemoglobin 26pg (25-35) 27pg (25-35) Mean Corpuscular Hemoglobin Concent 32g/dL (31-37) 31g/dL (31-37) Red Cell Distribution Width 18.1% (11.5-14.5) 18.2% (11.5-14.5) Platelet Count 337x10^3/uL (140-400) 315x10^3/uL (140-400) Neutrophils (%) (Auto) 56% (31-73) 60% (31-73) Lymphocytes (%) (Auto) 30% (24-48) 26% (24-48) Monocytes (%) (Auto) 10% (0-9) 9% (0-9) Eosinophils (%) (Auto) 3% (0-3) 4% (0-3) Basophils (%) (Auto) 1% (0-3) 1% (0-3) Neutrophils # (Auto) 3.5x10^3uL (1.8-7.7) 3.0x10^3uL (1.8-7.7) Lymphocytes # (Auto) 1.9x10^3/uL (1.0-4.8) 1.3x10^3/uL (1.0-4.8) Monocytes # (Auto) 0.6x10^3/uL (0.0-1.1) 0.5x10^3/uL (0.0-1.1) Eosinophils # (Auto) 0.2x10^3/uL (0.0-0.7) 0.2x10^3/uL (0.0-0.7) Basophils # (Auto) 0.1x10^3/uL (0.0-0.2) 0.0x10^3/uL (0.0-0.2) Segmented Neutrophils % 59% (35-66) Band Neutrophils % 3% (0-9) Lymphocytes % 26% (24-48) Atypical Lymphocytes % (Manual) 2% (0-0) Monocytes % 8% (0-10) Eosinophils % 1% (0-5) Myelocytes % 1% (0-0) Platelet Estimate Adequate (ADEQUATE) Anisocytosis Slight Sodium Level 144mmol/L (136-145) 149mmol/L (136-145) Potassium Level 4.4mmol/L (3.5-5.1) 4.0mmol/L (3.5-5.1) Chloride Level 109mmol/L (98-107) 111mmol/L (98-107) Carbon Dioxide Level 27mmol/L (21-32) 28mmol/L (21-32) Anion Gap 8 (6-14) 10 (6-14) Blood Urea Nitrogen 9mg/dL (7-20) 8mg/dL (7-20) Creatinine 0.9mg/dL (0.6-1.0) 0.7mg/dL (0.6-1.0) Estimated GFR (Cockcroft-Gault) 65.0 86.9 Glucose Level 98mg/dL (70-99) 71mg/dL (70-99) Calcium Level 9.1mg/dL (8.5-10.1) 8.7mg/dL (8.5-10.1) Total Bilirubin 0.4mg/dL (0.2-1.0) 0.3mg/dL (0.2-1.0) Direct Bilirubin 0.2mg/dL (0.0-0.2) Aspartate Amino Transf (AST/SGOT) 16U/L (15-37) 16U/L (15-37) Alanine Aminotransferase (ALT/SGPT) 8U/L (14-59) 9U/L (14-59) Alkaline Phosphatase 102U/L (46-116) 90U/L (46-116) Troponin I Quantitative 0.121ng/mL (0.000-0.055) 0.055ng/mL (0.000-0.055) 0.050ng/mL (0.000-0.055) HG-Efw-Y-Type Natriuretic Peptide 39364ea/mL (0-124) Total Protein 7.0g/dL (6.4-8.2) 6.6g/dL (6.4-8.2) Albumin 1.8g/dL (3.4-5.0) 1.7g/dL (3.4-5.0) Lipase 49U/L (73-393) Urine Collection Type Unknown Urine Color Yellow Urine Clarity Clear Urine pH 7.0 Urine Specific Manly <=1.005 Urine Protein Negativemg/dL (NEG-TRACE) Urine Glucose (UA) Negativemg/dL (NEG) Urine Ketones (Stick) Negativemg/dL (NEG) Urine Blood Negative (NEG) Urine Nitrite Negative (NEG) Urine Bilirubin Negative (NEG) Urine Urobilinogen Dipstick 0.2mg/dL (0.2 mg/dL) Urine Leukocyte Esterase Moderate (NEG) Urine RBC Occ/HPF (0-2) Urine WBC 20-40/HPF (0-4) Urine Squamous Epithelial Cells Few/LPF Urine Bacteria 0/HPF (0-FEW) Urine Hyaline Casts Few/HPF Urine Mucus Slight/LPF Urine Yeast Present/HPF BUN/Creatinine Ratio 11 (6-20) Albumin/Globulin Ratio 0.3 (1.0-1.7) ASSESSMENT/PLAN ASSESSMENT/PLAN 1. Acute encephalopathy: suspect combined metabolic and hypoxic secondary to excessive opioid use with underlying liver disease. Mentation back to baseline with narcan use. Per PCP 2. Hypotension: resolved after IV hydration 3. Elevated troponin and Pro NT BNP: EKG SR with LAFB otherwise no acute changes. Peaked troponin at 0.121 and now normalized. Elevation to trop/proNT BNP related to likely hypoxia and encephalopathy. No cardiac symptoms otherwise. TTE today. No further testing if no remarkable changes. 4. HTN: controlled, resume regimen once BP is consistently stable 5. Prolonged QTC: QTC 504. NO bradycardic events. Contributing medications is excessive opioids with associated benzos, SSRI. Caution with QT prolonging meds. 5. PAFIB?: pt denies. Not a candidate for OAC/NOAC with notable liver disease. No noted BB nor CCB. Continue with home ASA. 6. Anemia of chronic disease: Hgb 8.4 7. Chronic hepatitis with protein malnutrition: albumin 1.7. 8. Hx of Quadriplegia r/t traumatic fall Problems: ALEX BLACKMON MD 09/09/16 1613: CARDIAC CONSULT ALLERGIES ALLERGIES: Coded Allergies: ciprofloxacin (Verified Allergy, Intermediate, 09/02/16) ASSESSMENT/PLAN ASSESSMENT/PLAN Patient seen and examined. Agree with SAFETY EQUIPMENT TESTING SPECIALIST's assessment and plan. Acute toxic encephalopathy probably secondary to opiate use and presently reversed with narcan. Slight troponin elevation probably secondary to hypoxia. Doubt ACS. Continue current treatment. OK for transfer to [place] from cardiology standpoint. Thank you for your consultation. Problems: DARIUS BILLS APRN Sep 09, 2016 11:55 ALEX BLACKMON MD Sep 09, 2016 16:13
[2016-09-09] MEDS ORDERED: SODIUM CHL/ALOE VERA NASAL GEL 14.1GM TUBE. TP PRN (12:00)
[2016-09-09] MEDS ORDERED: SIMETHICONE 80 MG TAB.CHEW PO PRN (12:00)
[2016-09-09] MEDS ORDERED: ONDANSETRON ODT 4 MG TAB.RAPDIS PO PRN (12:00)
[2016-09-09] MEDS ORDERED: ACETAMINOPHEN 325 MG TABLET. PO PRN (12:00)
[2016-09-09] MEDS ORDERED: BISACODYL 10 MG SUPP.RECT RC PRN (12:00)
[2016-09-09] MEDS ORDERED: OXYCODONE IR 5 MG TABLET. PO PRN (12:15)
[2016-09-09] MEDS ORDERED: ASCORBIC ACID 500 MG TABLET PO SCH (13:00)
[2016-09-09] MEDS ORDERED: LIOTHYRONINE 5 MCG TABLET. PO SCH (13:00)
[2016-09-09] MEDS ORDERED: LEVOTHYROXINE 100 MCG TABLET PO SCH (13:00)
[2016-09-09] MEDS ORDERED: DIVALPROEX SPRINKLES 125 MG CAPSULE. PO SCH (13:00)
[2016-09-09] MEDS ORDERED: PANTOPRAZOLE 40 MG TABLET. PO SCH (13:00)
[2016-09-09] MEDS ORDERED: OXYBUTYNIN CHLORIDE 5 MG TABLET PO SCH (13:00)
[2016-09-09] MEDS ORDERED: MIDODRINE 5 MG TABLET PO SCH (13:00)
[2016-09-09] MEDS ORDERED: CEPHALEXIN 250 MG CAPSULE PO SCH (13:00)
[2016-09-09] MEDS ORDERED: ASPIRIN 81 MG TAB.CHEW PO SCH (13:00)
[2016-09-09] MEDS ORDERED: FLUOXETINE HCL 20 MG CAPSULE PO SCH (13:00)
--- NOTE | 2016-09-09 13:21 | HP ---
ADMIT DATE: 09/08/2016 HISTORY OF PRESENT ILLNESS: The patient is a 55-year-old female patient who was discharged only recently, in fact she was discharged on 09/06/2016 and she was discharged on her pain medication that included morphine sulfate 30 mg 3 times a day, oxycodone 20 mg every 4 hours and fentanyl patch 25 mcg topically q. 72 hours and yesterday morning, the patient was completely unresponsive and the nursing staff called me initially we thought we will observe her until she wakes up, but she continued to be unresponsive and therefore, a decision was made to send her to the Emergency Room for further evaluation and treatment and in fact, she was seen in the Emergency Room, she was extremely lethargic, but she did respond to Narcan and a decision was made to admit her to the ICU to make sure that she would not require intubation and she was in fact protecting her airways according to the ER physician and therefore did not require intubation and mechanical ventilation. Her lab work was normal. She was actually discharged home to continue treatment with oral antibiotic in the form of cephalexin. PAST MEDICAL HISTORY: Significant for chronic hepatitis, acute hematogenous osteomyelitis, atrial fibrillation, gastroesophageal reflux disease with esophagitis, chronic anemia. The patient has history of C. diff colitis. She also has seizure disorder, chronic constipation, chronic pain syndrome, major depressive disorder, hypothyroidism, protein-calorie malnutrition, essential hypertension, and anxiety disorder. She has cardioplegia. She did have gastrostomy tube that was dislodged accidentally and was never put back. So the patient is able to eat and drink. She has chronic sacral decubitus ulcer and recurrent urinary tract infection. PAST SURGICAL HISTORY: Significant for gastrostomy tube placement that apparently dislodged accidently. ALLERGIES: She is allergic to ciprofloxacin. CODE STATUS: Full. FAMILY HISTORY: Unremarkable. SOCIAL HISTORY: She is currently residing at [facility]. She does not smoke, drink alcohol or use any recreational drugs. She is mostly bed bound, chair bound; however, she has history of narcotic addiction. REVIEW OF SYSTEMS: The patient was unresponsive. On arrival to the Emergency Room, the patient opens her eyes to sternal rub. She grimaces to question, but is somnolent and confused. She is quadriplegic. PHYSICAL EXAMINATION: GENERAL: She was a well-developed, well-nourished patient who is unresponsive, she is breathing comfortably on room air, saturating well. The patient is tolerating secretion without any difficulty and clearing her throat. HEENT: Examination of head, eyes, nose and throat showed normocephalic, atraumatic. NECK: Supple. HEART: Showed normal first and second heart sounds with no gallop, rub or murmur. CHEST: Clear to auscultation. No crepitation or rhonchi. ABDOMEN: Distended, soft, nontender. No guarding or rigidity. No organomegaly. Hernial orifices intact. Bowel sounds normal. NEUROLOGIC: She was unresponsive. She grimaced to sternal rub; however, all cranial nerves are intact. She has quadriplegia with fixed flexion contracture of her upper extremities. She is mostly bedbound and chair bound. LABORATORY DATA: While in the Emergency Room, she has had lab work done, which showed that her white cell count was 6200, hemoglobin 9.2, hematocrit was 29, MCV 84 and platelet count of 337,000. Her chemistry showed that her serum sodium was 144, potassium 4.4, chloride 109, bicarbonate 27, anion gap of 8, BUN 9, creatinine 0.9, estimated GFR was 65 mL per minute. Her glucose was 98, calcium was 9.1. Total bilirubin, AST, ALT, alkaline phosphatase were normal. Her total protein was 7, albumin was 1.8. ASSESSMENT: This is a 55-year-old female patient who came with altered mental status, most likely due to narcotic overdose. All her lab works are within normal range. She did have a CT scan of the head, which basically showed there is generalized parenchymal atrophy, no acute parenchymal abnormality seen, no extraaxial fluid collection is noted. There is a minimal left mastoid effusion. No skull fracture is seen. Her chest x-ray also showed development of a patchy right basilar infiltrate or atelectasis since exam 6 days ago. The patient will be admitted to the ICU for observation and once she is awake and alert, we will cut down on her medication and decide on further management and probably discharge her back when she is awake and alert. She was on following medication at nursing facility, she was on fentanyl patch 25 mcg once a day. She was on meloxicam, oxycodone 10 mg 2 tablets every 4 hours and morphine sulfate 30 mg 3 times a day. PLAN: My plan is to discontinue her morphine and fentanyl, cut down her oxycodone 10 mg every 4 hours once she is discharged back to long term facility. MARY LOU YOUNG MD DR: BASIM/tom JOB#: [id number] / [id number]
--- NOTE | 2016-09-09 13:50 | PDOC2 ---
NEUROLOGY CONSULT Date of Admission Date of Admission DATE: 09/09/16 TIME: 13:36 Reason for Consult Reason for Consult: IMPRESSION: MS changes. Metabolic encephalopathy. Confusion Narcotic side effects. UTI Seizure PAFib? HTN Hypotension events. Hypothyroidism Narcotic addition in past. RECOMMENDATIONS/PLAN: Continue Depakote 125 mg bid. EEG Lab: see orders. Treat UTI Treat medical diseases. Avoid narcotics as possible. OT/PT. HISTORY OF THE PRESENT ILLNESS: [age]-y-old female patient shelter resident with above medical diseases has been on Narcotics chronically for pain. She had mental status changes, confusion, then unresponsive to verbal stimuli and not woke, so she was brought to the ER of [facility]. She woke up around 1:00 am during midnight. No new neurological motor or sensory deficits noted. No seizures observed. PAST MEDICAL HISTORY: Please see above. PAST SURGERY HISTORY: PEG ALLERGY: Cipro. MEDICATIONS: Refer to [facility] FAMILY HISTORY: Non contributory. SOCIAL HISTORY: Lives in shelter. Denies current smoking, drinking, and illicit drug use. She had Hx of Narcotic addiction. REVIEW OF SYSTEMS: Constitutional: Mild malnutrition. Head: No traumatic brain or head injury. Skin: No edema, or rash. Ear: No infection, tinnitus. Eyes: No vision loss or color blindness. Nose: No bleeding or purulent discharges. Hearing: No hearing decrease. Neck: No injury. Breast: No history of cancer, masses,or discharges. Cardiac: PAFib? HTN, HLD. Pulmonary: No COPD. GI: GERD. Urinary/genital: UTI. Endocrinologic: No cousin face, craniofacial dysmorphism, polydactyly, goiter. Skeletomuscular: Chronic spastic quandriplegia. Neurological: see HP. Psychiatric: Narcotic use/abuse. Otherwise, not -iirwb review of systems. PHYSICAL EXAMINATION: General appearance is in subacute distress. HEENT: Normocephalic and nontraumatic. Eyes, nose, ears, and throat are unremarkable. Neck is supple. No lymphadenopathy. No crepitus. Cardiovascular: S1, S2, regular rate and rhythm. Pulmonary: Clear to auscultation bilaterally. Abdomen: Bowel sounds are positive. Extremities: No rash, lesions, or edema. Restriction of range of motion due to spasticity. NEUROLOGICAL EXAMINATION: Awake. Oriented to place and person. PERRL. EOMI. CN: no focal findings. Muscle tone: Increased UE > LE Muscle strength: 4- UE, unable to access LE DTR: 1-2 Plantar reflex: Neutral response bilaterally Gait: not able to walk. Sensory exam: no acute abnormal findings.She stated she feels sensory stimuli in all her extremities. No obvious cerebellar signs elicited. She was unable to perform F-T-N due to stiffness. Current Medications Current Medications Current Medications Naloxone HCl (Narcan) 0.4 mg 1X ONCE IV Last administered on 09/08/16 18:10; Start 09/08/16 at 18:00; Stop 09/08/16 at 18:01; Status DC Ondansetron HCl (Zofran) 4 mg PRN Q8HRS PRN IV NAUSEA/VOMITING; Start 09/08/16 at 19:00; Stop 09/09/16 at 18:59 Morphine Sulfate 2 mg 2 mg PRN Q2HR PRN IV PAIN; Start 09/08/16 at 19:00; Stop 09/09/16 at 18:59 Sodium Chloride (Iv Sodium Chloride 0.9% 1000ml Bag) 1,000 ml @ 100 mls/hr Q10H IV Last administered on 09/09/16 04:14; Start 09/08/16 at 18:49; Stop at 18:48 Info (Do NOT chart on this placeholder) 1 each 1X ONCE MC ; Start 09/09/16 at 00:15; Stop 09/09/16 at 00:16; Status UNV Pneumococcal Polyvalent Vaccine (Do NOT chart on this placeholder) 1 each 1X ONCE MC ; Start 09/09/16 at 00:15; Stop 09/09/16 at 00:16; Status UNV Influenza Virus Vaccine Quadrival (Fluarix Quad [id number] Syringe) 0.5 ml ONCE ONCE VAX IM ; Start 09/09/16 at 09:00; Stop 09/09/16 at 09:01; Status DC Pneumococcal Polyvalent Vaccine (Pneumovax 23) 0.5 ml ONCE ONCE VAX IM ; Start 09/09/16 at 09:00; Stop 09/09/16 at 09:01; Status DC Acetaminophen (Tylenol) 650 mg PRN Q8HRS PRN PO FEVER; Start 09/09/16 at 12:00 Ascorbic Acid (Vitamin C) 500 mg BID PO ; Start 09/09/16 at 13:00 Aspirin (Children'S Aspirin) 81 mg DAILY PO ; Start 09/09/16 at 13:00 Baclofen (Lioresal) 10 mg TID PO ; Start 09/09/16 at 14:00 Bisacodyl (Dulcolax Supp) 10 mg PRN DAILY PRN RC CONSTIPATION; Start 09/09/16 at 12:00 Clonazepam (Klonopin) 0.25 mg TID PO ; Start 09/09/16 at 14:00 Docusate Sodium (Colace) 100 mg BID PO ; Start 09/09/16 at 21:00 Enoxaparin Sodium (Lovenox 40mg Syringe) 40 mg DAILY16 SQ ; Start 09/09/16 at 16 :00 Famotidine (Pepcid) 20 mg HS PO ; Start 09/09/16 at 21:00 Ferrous Sulfate (Feosol) 325 mg TIDWMEALS PO ; Start 09/09/16 at 17:00 Polysaccharide Iron Complex (Niferex 150) 150 mg DAILY PO ; Start 09/10/16 at 09 :00 Levothyroxine Sodium (Synthroid) 100 mcg DAILY07 PO ; Start 09/09/16 at 13:00 Liothyronine Sodium (Cytomel) 5 mcg DAILY PO ; Start 09/09/16 at 13:00 Mirtazapine (Remeron) 15 mg QHS PO ; Start 09/09/16 at 21:00 Ondansetron HCl (Zofran Odt) 4 mg PRN Q4HRS PRN PO NAUSEA; Start 09/09/16 at 12 :00 Oxybutynin Chloride (Ditropan) 5 mg BID PO ; Start 09/09/16 at 13:00 Pantoprazole Sodium (Protonix) 40 mg DAILYAC PO ; Start 09/09/16 at 13:00 Potassium Chloride (Klor-Con) 20 meq BIDWMEALS PO ; Start 09/09/16 at 17:00 Simethicone (Gas-X) 80 mg PRN TID PRN PO INDIGESTION; Start 09/09/16 at 12:00 Sodium Chloride ([place] Saline Nasal) 14.1 jono PRN Q6HRS PRN TP NASAL CONGESTION; Start 09/09/16 at 12:00 Zinc Sulfate (Orazinc) 220 mg QHS PO ; Start 09/09/16 at 21:00 Cephalexin HCl (Keflex) 500 mg QID PO ; Start 09/09/16 at 13:00 Divalproex Sodium (Depakote Sprinkles) 125 mg BID PO ; Start 09/09/16 at 13:00 Fluoxetine HCl (Prozac) 40 mg DAILY PO ; Start 09/09/16 at 13:00 Meloxicam (Mobic) 15 mg DAILY PO ; Start 09/10/16 at 09:00 Midodrine (Proamatine) 10 mg [id number] PO ; Start 09/09/16 at 13:00 Multivitamins/ Calcium (Thera M Plus) 1 tab DAILY PO ; Start 09/10/16 at 09:00 Oxycodone HCl (Roxicodone) 5 mg PRN Q4HRS PRN PO PAIN; Start 09/09/16 at 12:15 Active Scripts Active Reported Pantoprazole Sodium 40 Mg Tablet.dr 1 Tab PO DAILY Oxycodone Hcl 10 Mg Tablet 2 Tab PO Q4HRS PRN Klor-Con M20 (Potassium Chloride) 20 Meq Tab.er.prt 1 Tab PO BID Ferrous Sulfate 325 Mg Tablet 325 Mg PO TID Lovenox (Enoxaparin Sodium) 40 Mg/0.4 Ml Disp.syrin 40 Mg SQ DAILY Cephalexin 500 Mg Capsule 1 Cap PO QID Multi Vitamin Daily (Multivitamin) 1 Each Tablet 1 Each PO DAILY Ondansetron Odt (Ondansetron) 4 Mg Tab.rapdis 1 Tab PO PRN Q6-8HRS Zinc Sulfate 220 Mg Capsule 220 Mg PO QHS Vitamin C (Ascorbic Acid) 500 Mg Tablet 500 Mg PO BID Tylenol (Acetaminophen) 325 Mg Tablet 2 Tab PO PRN Q8HRS PRN Synthroid (Levothyroxine Sodium) 100 Mcg Tablet 1 Tab PO DAILY Simethicone 80 Mg Tab.chew 80 Mg PO TIDWMEALS PRN Saline Nasal Gel (Sodium Chloride/Aloe Vera) 14.1 Gm Gel..gram. 14.1 Gm TP Q6HRS PRN Famotidine 20 Mg Tablet 20 Mg PO HS Oxybutynin Chloride 5 Mg Tablet 1 Tab PO BID Morphine Sulfate 30 Mg Tablet 1 Tab PO TID Mirtazapine 15 Mg Tablet 1 Tab PO QHS Midodrine Hcl 10 Mg Tablet 10 Mg PO TID Meloxicam 15 Mg Tablet 1 Tab PO DAILY Liothyronine Sodium 5 Mcg Tablet 5 Mcg PO Fluoxetine Hcl 40 Mg Capsule 1 Cap PO DAILY Ferrex 150 (Iron Polysaccharides Complex) 150 Mg Capsule 150 Mg PO FENTANYL 25mcg/hr (Fentanyl) 1 Each Patch.td72 1 Patch TD Q72H Divalproex Sodium 125 Mg Tablet.dr 125 Mg PO BID Colace (Docusate Sodium) 100 Mg Capsule 1 Cap PO BID Clonazepam 0.5 Mg Tablet 1 Tab PO TID Bisacodyl 10 Mg Supp.rect 10 Mg RC PRN DAILY PRN Baclofen 10 Mg Tablet 1 Tab PO TID Aspirin 81 Mg Tab.chew 1 Tab PO DAILY Allergies Allergies: Coded Allergies: ciprofloxacin (Verified Allergy, Intermediate, 09/02/16) Vitals VITALS Vital Signs Date Time Temp Pulse Resp B/P Pulse Ox O2 Delivery O2 Flow Rate FiO2 09/09/16 10:00 82 24 141/67 99 Nasal Cannula 2.0 09/09/16 08:00 98.1 98.1 Labs Labs Laboratory Tests Test 09/08/16 17:55 09/08/16 18:33 09/08/16 20:05 09/09/16 00:40 White Blood Count 6.2x10^3/uL (4.0-11.0) Red Blood Count 3.48x10^6/uL (3.50-5.40) Hemoglobin 9.2g/dL (12.0-15.5) Hematocrit 29.1% (36.0-47.0) Mean Corpuscular Volume 84fL (79-100) Mean Corpuscular Hemoglobin 26pg (25-35) Mean Corpuscular Hemoglobin Concent 32g/dL (31-37) Red Cell Distribution Width 18.1% (11.5-14.5) Platelet Count 337x10^3/uL (140-400) Neutrophils (%) (Auto) 56% (31-73) Lymphocytes (%) (Auto) 30% (24-48) Monocytes (%) (Auto) 10% (0-9) Eosinophils (%) (Auto) 3% (0-3) Basophils (%) (Auto) 1% (0-3) Neutrophils # (Auto) 3.5x10^3uL (1.8-7.7) Lymphocytes # (Auto) 1.9x10^3/uL (1.0-4.8) Monocytes # (Auto) 0.6x10^3/uL (0.0-1.1) Eosinophils # (Auto) 0.2x10^3/uL (0.0-0.7) Basophils # (Auto) 0.1x10^3/uL (0.0-0.2) Segmented Neutrophils % 59% (35-66) Band Neutrophils % 3% (0-9) Lymphocytes % 26% (24-48) Atypical Lymphocytes % (Manual) 2% (0-0) Monocytes % 8% (0-10) Eosinophils % 1% (0-5) Myelocytes % 1% (0-0) Platelet Estimate Adequate (ADEQUATE) Anisocytosis Slight Sodium Level 144mmol/L (136-145) Potassium Level 4.4mmol/L (3.5-5.1) Chloride Level 109mmol/L (98-107) Carbon Dioxide Level 27mmol/L (21-32) Anion Gap 8 (6-14) Blood Urea Nitrogen 9mg/dL (7-20) Creatinine 0.9mg/dL (0.6-1.0) Estimated GFR (Cockcroft-Gault) 65.0 Glucose Level 98mg/dL (70-99) Calcium Level 9.1mg/dL (8.5-10.1) Total Bilirubin 0.4mg/dL (0.2-1.0) Direct Bilirubin 0.2mg/dL (0.0-0.2) Aspartate Amino Transf (AST/SGOT) 16U/L (15-37) Alanine Aminotransferase (ALT/SGPT) 8U/L (14-59) Alkaline Phosphatase 102U/L (46-116) Troponin I Quantitative 0.121ng/mL (0.000-0.055) 0.055ng/mL (0.000-0.055) BQ-Anq-L-Type Natriuretic Peptide 52899cf/mL (0-124) Total Protein 7.0g/dL (6.4-8.2) Albumin 1.8g/dL (3.4-5.0) Lipase 49U/L (73-393) Urine Collection Type Unknown Urine Color Yellow Urine Clarity Clear Urine pH 7.0 Urine Specific Froh[place] <=1.005 Urine Protein Negativemg/dL (NEG-TRACE) Urine Glucose (UA) Negativemg/dL (NEG) Urine Ketones (Stick) Negativemg/dL (NEG) Urine Blood Negative (NEG) Urine Nitrite Negative (NEG) Urine Bilirubin Negative (NEG) Urine Urobilinogen Dipstick 0.2mg/dL (0.2 mg/dL) Urine Leukocyte Esterase Moderate (NEG) Urine RBC Occ/HPF (0-2) Urine WBC 20-40/HPF (0-4) Urine Squamous Epithelial Cells Few/LPF Urine Bacteria 0/HPF (0-FEW) Urine Hyaline Casts Few/HPF Urine Mucus Slight/LPF Urine Yeast Present/HPF Nasal Screen MRSA (PCR) Negative (Negative) Test 09/09/16 05:30 White Blood Count 5.0x10^3/uL (4.0-11.0) Red Blood Count 3.15x10^6/uL (3.50-5.40) Hemoglobin 8.4g/dL (12.0-15.5) Hematocrit 26.8% (36.0-47.0) Mean Corpuscular Volume 85fL (79-100) Mean Corpuscular Hemoglobin 27pg (25-35) Mean Corpuscular Hemoglobin Concent 31g/dL (31-37) Red Cell Distribution Width 18.2% (11.5-14.5) Platelet Count 315x10^3/uL (140-400) Neutrophils (%) (Auto) 60% (31-73) Lymphocytes (%) (Auto) 26% (24-48) Monocytes (%) (Auto) 9% (0-9) Eosinophils (%) (Auto) 4% (0-3) Basophils (%) (Auto) 1% (0-3) Neutrophils # (Auto) 3.0x10^3uL (1.8-7.7) Lymphocytes # (Auto) 1.3x10^3/uL (1.0-4.8) Monocytes # (Auto) 0.5x10^3/uL (0.0-1.1) Eosinophils # (Auto) 0.2x10^3/uL (0.0-0.7) Basophils # (Auto) 0.0x10^3/uL (0.0-0.2) Sodium Level 149mmol/L (136-145) Potassium Level 4.0mmol/L (3.5-5.1) Chloride Level 111mmol/L (98-107) Carbon Dioxide Level 28mmol/L (21-32) Anion Gap 10 (6-14) Blood Urea Nitrogen 8mg/dL (7-20) Creatinine 0.7mg/dL (0.6-1.0) Estimated GFR (Cockcroft-Gault) 86.9 BUN/Creatinine Ratio 11 (6-20) Glucose Level 71mg/dL (70-99) Calcium Level 8.7mg/dL (8.5-10.1) Total Bilirubin 0.3mg/dL (0.2-1.0) Aspartate Amino Transf (AST/SGOT) 16U/L (15-37) Alanine Aminotransferase (ALT/SGPT) 9U/L (14-59) Alkaline Phosphatase 90U/L (46-116) Troponin I Quantitative 0.050ng/mL (0.000-0.055) Total Protein 6.6g/dL (6.4-8.2) Albumin 1.7g/dL (3.4-5.0) Albumin/Globulin Ratio 0.3 (1.0-1.7) Thyroid Stimulating Hormone (TSH) 4.419uIU/mL (0.358-3.74) Laboratory Tests Test 09/08/16 17:55 09/08/16 18:33 09/08/16 20:05 09/09/16 00:40 White Blood Count 6.2x10^3/uL (4.0-11.0) Red Blood Count 3.48x10^6/uL (3.50-5.40) Hemoglobin 9.2g/dL (12.0-15.5) Hematocrit 29.1% (36.0-47.0) Mean Corpuscular Volume 84fL (79-100) Mean Corpuscular Hemoglobin 26pg (25-35) Mean Corpuscular Hemoglobin Concent 32g/dL (31-37) Red Cell Distribution Width 18.1% (11.5-14.5) Platelet Count 337x10^3/uL (140-400) Neutrophils (%) (Auto) 56% (31-73) Lymphocytes (%) (Auto) 30% (24-48) Monocytes (%) (Auto) 10% (0-9) Eosinophils (%) (Auto) 3% (0-3) Basophils (%) (Auto) 1% (0-3) Neutrophils # (Auto) 3.5x10^3uL (1.8-7.7) Lymphocytes # (Auto) 1.9x10^3/uL (1.0-4.8) Monocytes # (Auto) 0.6x10^3/uL (0.0-1.1) Eosinophils # (Auto) 0.2x10^3/uL (0.0-0.7) Basophils # (Auto) 0.1x10^3/uL (0.0-0.2) Segmented Neutrophils % 59% (35-66) Band Neutrophils % 3% (0-9) Lymphocytes % 26% (24-48) Atypical Lymphocytes % (Manual) 2% (0-0) Monocytes % 8% (0-10) Eosinophils % 1% (0-5) Myelocytes % 1% (0-0) Platelet Estimate Adequate (ADEQUATE) Anisocytosis Slight Sodium Level 144mmol/L (136-145) Potassium Level 4.4mmol/L (3.5-5.1) Chloride Level 109mmol/L (98-107) Carbon Dioxide Level 27mmol/L (21-32) Anion Gap 8 (6-14) Blood Urea Nitrogen 9mg/dL (7-20) Creatinine 0.9mg/dL (0.6-1.0) Estimated GFR (Cockcroft-Gault) 65.0 Glucose Level 98mg/dL (70-99) Calcium Level 9.1mg/dL (8.5-10.1) Total Bilirubin 0.4mg/dL (0.2-1.0) Direct Bilirubin 0.2mg/dL (0.0-0.2) Aspartate Amino Transf (AST/SGOT) 16U/L (15-37) Alanine Aminotransferase (ALT/SGPT) 8U/L (14-59) Alkaline Phosphatase 102U/L (46-116) Troponin I Quantitative 0.121ng/mL (0.000-0.055) 0.055ng/mL (0.000-0.055) RF-Wfg-M-Type Natriuretic Peptide 24911vl/mL (0-124) Total Protein 7.0g/dL (6.4-8.2) Albumin 1.8g/dL (3.4-5.0) Lipase 49U/L (73-393) Urine Collection Type Unknown Urine Color Yellow Urine Clarity Clear Urine pH 7.0 Urine Specific Froh[place] <=1.005 Urine Protein Negativemg/dL (NEG-TRACE) Urine Glucose (UA) Negativemg/dL (NEG) Urine Ketones (Stick) Negativemg/dL (NEG) Urine Blood Negative (NEG) Urine Nitrite Negative (NEG) Urine Bilirubin Negative (NEG) Urine Urobilinogen Dipstick 0.2mg/dL (0.2 mg/dL) Urine Leukocyte Esterase Moderate (NEG) Urine RBC Occ/HPF (0-2) Urine WBC 20-40/HPF (0-4) Urine Squamous Epithelial Cells Few/LPF Urine Bacteria 0/HPF (0-FEW) Urine Hyaline Casts Few/HPF Urine Mucus Slight/LPF Urine Yeast Present/HPF Nasal Screen MRSA (PCR) Negative (Negative) Test 09/09/16 05:30 White Blood Count 5.0x10^3/uL (4.0-11.0) Red Blood Count 3.15x10^6/uL (3.50-5.40) Hemoglobin 8.4g/dL (12.0-15.5) Hematocrit 26.8% (36.0-47.0) Mean Corpuscular Volume 85fL (79-100) Mean Corpuscular Hemoglobin 27pg (25-35) Mean Corpuscular Hemoglobin Concent 31g/dL (31-37) Red Cell Distribution Width 18.2% (11.5-14.5) Platelet Count 315x10^3/uL (140-400) Neutrophils (%) (Auto) 60% (31-73) Lymphocytes (%) (Auto) 26% (24-48) Monocytes (%) (Auto) 9% (0-9) Eosinophils (%) (Auto) 4% (0-3) Basophils (%) (Auto) 1% (0-3) Neutrophils # (Auto) 3.0x10^3uL (1.8-7.7) Lymphocytes # (Auto) 1.3x10^3/uL (1.0-4.8) Monocytes # (Auto) 0.5x10^3/uL (0.0-1.1) Eosinophils # (Auto) 0.2x10^3/uL (0.0-0.7) Basophils # (Auto) 0.0x10^3/uL (0.0-0.2) Sodium Level 149mmol/L (136-145) Potassium Level 4.0mmol/L (3.5-5.1) Chloride Level 111mmol/L (98-107) Carbon Dioxide Level 28mmol/L (21-32) Anion Gap 10 (6-14) Blood Urea Nitrogen 8mg/dL (7-20) Creatinine 0.7mg/dL (0.6-1.0) Estimated GFR (Cockcroft-Gault) 86.9 BUN/Creatinine Ratio 11 (6-20) Glucose Level 71mg/dL (70-99) Calcium Level 8.7mg/dL (8.5-10.1) Total Bilirubin 0.3mg/dL (0.2-1.0) Aspartate Amino Transf (AST/SGOT) 16U/L (15-37) Alanine Aminotransferase (ALT/SGPT) 9U/L (14-59) Alkaline Phosphatase 90U/L (46-116) Troponin I Quantitative 0.050ng/mL (0.000-0.055) Total Protein 6.6g/dL (6.4-8.2) Albumin 1.7g/dL (3.4-5.0) Albumin/Globulin Ratio 0.3 (1.0-1.7) Thyroid Stimulating Hormone (TSH) 4.419uIU/mL (0.358-3.74) CHITRA WATSON MD Sep 09, 2016 13:50
--- NOTE | 2016-09-09 13:59 | EKG ---
[facility] [address] [place] [address] Test Date: 2016-09-09 Test Time: 14:04:45 Pat Name: FRANCINE GARRIDO Department: Room: 108 1 Gender: F [employer]ce [employer]ner: SHU : 1960 Requested By: DARIUS BILLS Order Number: [id number] Reading MD: Ajay Paredes Measurements Intervals [place] Rate: 83 P: 61 WY: 142 QRS: -26 QRSD: 76 T: -6 QT: 420 QTc: 500 Interpretive Statements SINUS RHYTHM NON-SPECIFIC ST/T CHANGES Electronically Signed On 09-12-2016 10:21:28 [employer] by Ajay Paredes
[2016-09-09] MEDS ORDERED: CLONAZEPAM 0.5 MG TABLET PO SCH (14:00)
[2016-09-09] MEDS ORDERED: BACLOFEN 10 MG TABLET PO SCH (14:00)
[2016-09-09] MEDS ORDERED: DIVA500T9 PO (14:49)
[2016-09-09] MEDS ORDERED: ENOXAPARIN 40 MG/0.4 ML DISP.SYRIN. SQ SCH (16:00)
[2016-09-09] MEDS ORDERED: POTASSIUM CHLORIDE 20 MEQ TABLET.ER. PO SCH (17:00)
[2016-09-09] MEDS ORDERED: FERROUS SULFATE 325 MG TABLET PO SCH (17:00)
--- NOTE | 2016-09-09 17:05 | CARD ---
APPROVED REPORT EXAM: Two-dimensional and M-mode echocardiogram with Doppler and color Doppler. Other Information Quality : Good INDICATION Elevated BNP 2D DIMENSIONS RVDd2.0 (2.9-3.5cm)Left Atrium(2D)2.6 (1.6-4.0cm) IVSd1.2 (0.7-1.1cm)Aortic Root(2D)2.8 (2.0-3.7cm) LVDd4.0 (3.9-5.9cm)LVOT Diameter1.9 (1.8-2.4cm) PWd1.1 (0.7-1.1cm)LVDs2.3 (2.5-4.0cm) FS (%) 30.0 %SV51.9 ml LVEF(%)60.0 (>50%) Aortic Valve AoV Peak Xavier.154.5cm/sAoV VTI23.1cm AO Peak GR.9.5mmHgLVOT VTI 23.26cm AO Mean GR.5mmHgAVA (VTI)2.80cm2 Mitral Valve MV E Zpqmwfyu07.1cm/sMV DECEL BDPA189ot MV A Irhautoz12.6cm/sE/A Ratio1.1 TDI Lateral E' P. V8.11cm/sMedial E' P. V7.79cm/s E/Lateral E'11.7E/Medial E'12.2 Tricuspid Valve TR P. Xtnihetw054ed/sRAP INBWUHXD6cxGc TR Peak Gr.62wuDfTQXC12mrNe Pulmonary Vein S1 Qpoopopx19.5cm/sS2 Xqofdkhl15.91cm/s D2 Vjevirkt57.9cm/sPVa [id number] LEFT VENTRICLE The left ventricle is normal size. There is mild concentric left ventricular hypertrophy. The left ve ntricular systolic function is normal. The Ejection Fraction is 60-65%. There is normal LV segmental wall motion. RIGHT VENTRICLE The right ventricle is normal size. The right ventricular systolic function is normal. ATRIA The left atrium size is normal. The right atrium size is normal. The interatrial septum is intact wit h no evidence for an atrial septal defect or patent foramen ovale as noted on 2-D or Doppler imaging. AORTIC VALVE The aortic valve is calcified but opens well. Doppler and Color Flow revealed no significant aortic r egurgitation. There is no significant aortic valvular stenosis. MITRAL VALVE The mitral valve is calcified but opens well. There is no evidence of mitral valve prolapse. There is no mitral valve stenosis. Doppler and Color-flow revealed trace mitral regurgitation. TRICUSPID VALVE The tricuspid valve is normal in structure and function. Doppler and Color Flow revealed trace tricus pid regurgitation. There is mild pulmonary hypertension. The PA pressure was estimated at 37 mmHg. Th ere is no tricuspid valve stenosis. PULMONIC VALVE The pulmonary valve is normal in structure and function. Doppler and Color Flow revealed trace pulmon ic valvular regurgitation. There is no pulmonic valvular stenosis. GREAT VESSELS The aortic root is normal in size. The ascending aorta is normal in size. The IVC is normal in size a nd collapses >50% with inspiration. PERICARDIAL EFFUSION There is no evidence of significant pericardial effusion. Critical Notification Critical Value: No <Conclusion> The left ventricular systolic function is normal. The Ejection Fraction is 60-65%. There is normal LV segmental wall motion. Trace mitral regurgitation. Trace tricuspid regurgitation. There is mild pulmonary hypertension. The PA pressure was estimated at 37 mmHg. There is no evidence of significant pericardial effusion.
[2016-09-09] MEDS ORDERED: MIRTAZAPINE 15 MG TABLET PO SCH (21:00)
[2016-09-09] MEDS ORDERED: ZINC SULFATE 220 MG CAPSULE. PO SCH (21:00)
[2016-09-09] MEDS ORDERED: DOCUSATE SODIUM 100 MG CAPSULE PO SCH (21:00)
[2016-09-09] MEDS ORDERED: FAMOTIDINE 20 MG TABLET. PO SCH (21:00)
--- NOTE | 2016-09-09 21:02 | EEG ---
DATE OF SERVICE: 09/09/2016 EEG NUMBER: [id number] OBJECTIVE: This is a 55-year-old female patient with history of mental status changes, unresponsiveness and confusion. EEG was requested to evaluate cerebral activity. METHODS: Twenty electrodes were applied according to the international 10-20 electrode placement system. EKG monitoring, hyperventilation, intermittent photic stimulation, monopolar and bipolar montages are routinely utilized. The record was obtained on a digital system with video monitoring. MEDICATION: The patient has used narcotics. FINDINGS: 1. Background: The patient was recorded in the awake and drowsy states. No sleep state was recorded. The overall background amplitude is 10-20 microvolts. A posterior dominant rhythm of 7 Hz is observed with superimposed slowing in theta and delta frequencies. 2. Abnormalities: No specific epileptiform discharge or electrographic seizure is seen. There is slowing in theta and delta frequencies noted less than 50% of the time. 3. Activation: Hyperventilation was not performed because the patient was unable to perform the technique. Intermittent photic stimulation was performed with photic driving. IMPRESSION: This EEG is an abnormal study for the awake and drowsy states. No sleep state was recorded. The posterior dominant rhythm of 7 Hz is slow for age. There is a superimposed slowing in theta and delta frequencies about 50% time or less. No focal, lateralizing, specific epileptiform discharge, or electrographic seizure is seen. this pattern of EEG may suggest encephalopathy. CHITRA WATSON MD DR: RAD/tom JOB#: [id number] / [id number] NAEEM
[2016-09-10] MEDS ORDERED: IRON POLYSACCHARIDE COMPLEX 150 MG CAPSULE PO SCH (09:00)
[2016-09-10] MEDS ORDERED: MULTIVITAMIN with MINERAL TABLET. PO SCH (09:00)
[2016-09-10] MEDS ORDERED: MELOXICAM 7.5 MG TABLET PO SCH (09:00)
== END 2016-09-09 15:00 ==
LOC: ER 17:36 → 1 WEST ICU 18:47 → INTOOBSV 18:47
PROVIDERS: ADMIT Internal Medicine; ATTEND Internal Medicine
DX: R41.82 Altered mental status, unspecified (principal); G93.41 Metabolic encephalopathy; R41.0 Disorientation, unspecified; N39.0 Urinary tract infection, site not specified; B18.2 Chronic viral hepatitis C; M86.00 Acute hematogenous osteomyelitis, unspecified site; I48.91 Unspecified atrial fibrillation; K21.9 Gastro-esophageal reflux disease without esophagitis; D63.8 Anemia in other chronic diseases classified elsewhere; G40.909 Epilepsy, unspecified, not intractable, without status epilepticus; G89.4 Chronic pain syndrome; F32.9 Major depressive disorder, single episode, unspecified; E03.9 Hypothyroidism, unspecified; E46 Unspecified protein-calorie malnutrition; I10 Essential (primary) hypertension; F41.9 Anxiety disorder, unspecified; G82.50 Quadriplegia, unspecified; M19.90 Unspecified osteoarthritis, unspecified site; I45.81 Long QT syndrome; T40.601A Poisoning by unspecified narcotics, accidental (unintentional), initial encounter
CPT/HCPCS: 36415; 70450; 71010; 80048; 80053; 80076; 81001; 82306; 82607; 83690; 83880; 84443; 84484; 85007; 85027; 87086; 87641; 93005; 93306; 95816; 96361; 96374; 99285; G0378; J2310; J7030; 90686; 90732; G0379

== ENCOUNTER 2016-10-14 21:48 | Inpatient (IN) | payer OTHER ==
[~2016-10-14] VITALS: Ht 200.7 cm; Wt 74.2 kg
[~2016-10-14 21:48] MED LIST changes: +CEPH500C PO; +DIVA500T9 PO; +ENOX40DI SQ; +FERR-26 PO; +MULT-245 PO; +OXYC10TA PO; +PANT40TA5 PO; +POTA20TA4 PO
[2016-10-14 22:21] LABS: BASO % 0 % (0-3); EOS % 3 % (0-3); HEMOGLOBIN 10.2 g/dL (12.0-15.5); LYMPH # 1.2 x10^3/uL (1.0-4.8); LYMPH % 22 % (24-48); MEAN CORPUSCULAR HEMOGLOBIN 27 pg (25-35); MEAN CORPUSCULAR HGB CONC 33 g/dL (31-37); MEAN CORPUSCULAR VOLUME 82 fL (79-100); MONO % 14 % (0-9); NEUT % 61 % (31-73); PLATELET COUNT 285 x10^3/uL (140-400); RED BLOOD COUNT 3.77 x10^6/uL (3.50-5.40); RED CELL DISTRIBUTION WIDTH 16.5 % (11.5-14.5); WHITE BLOOD COUNT 5.4 x10^3/uL (4.0-11.0)
[2016-10-14 22:22] LABS: BILIRUBIN,URINE NEGATIVE (NEG); GLUCOSE,URINE NEGATIVE (NEG); NITRITE,URINE POSITIVE (NEG); PH,URINE 7.5; PROTEIN,URINE 30 mg/dL (NEG-TRACE)
--- NOTE | 2016-10-14 22:26 | PHYS DOC ---
Past Medical History Past Medical History: A-Fib, Anemia, Anxiety, Constipation, Depression, GERD, Hypertension, Hypothyroid, Seizure, UTI, Other Additional Past Medical Histor: hepatitis, osteromyelitis, c-diff,quadriplegia , wound back,CHRONIC PAIN Past Surgical History: Other Additional Past Surgical Histo: peg tube placement Alcohol Use: None Drug Use: None Adult General Chief Complaint Chief Complaint: FEVER HPI HPI Patient is a 55 year old female who presents with fever. Patient sent from [facility] in [place] with complaint of fever up to 101.9, diarrhea, nausea, chills, myalgias. Patient reports symptoms started today. She was given Tylenol and oxycodone at the [facility] with insufficient relief. No other acute complaints. Review of Systems Review of Systems Constitutional: Fever, chills Eyes: Denies change in visual acuity or eye pain HENT: Denies nasal congestion or sore throat Respiratory: Denies cough or shortness of breath Cardiovascular: Denies chest pain GI: Nausea, diarrhea. Denies abdominal pain, vomiting, bloody stools : Denies dysuria or hematuria Musculoskeletal: Myalgias Integument: Denies rash Neurologic: Denies headache, focal weakness or sensory changes Current Medications Current Medications Current Medications Medications (Trade) Dose Ordered Sig/Nereida Start Time Stop Time Status Last Admin Dose Admin Acetaminophen (Tylenol) 650 mg PRN Q4HRS PRN 10/15/16 00:30 10/16/16 00:29 Lorazepam (Ativan) 1 mg 1X ONCE 10/15/16 00:15 10/15/16 00:16 DC Morphine Sulfate 2 mg 2 mg PRN Q2HR PRN 10/15/16 00:30 10/16/16 00:29 Norepinephrine Bitartrate/Sodium Chloride (Levophed Vial/ Iv Sodium Chloride 0.9% 250ml) 258 ml @ 0 mls/hr 1X ONCE 10/15/16 00:15 10/15/16 00:16 DC Ondansetron HCl (Zofran Odt) 4 mg 1X ONCE 10/14/16 22:30 10/14/16 22:31 DC 10/14/16 22:43 4 MG Ondansetron HCl (Zofran) 4 mg PRN Q8HRS PRN 10/15/16 00:30 10/16/16 00:29 Piperacillin Sod/ Tazobactam Sod 3.375 gm/Sodium Chloride 50 ml @ 100 mls/hr 1X ONCE 10/14/16 23:30 10/14/16 23:59 DC 10/14/16 23:33 100 MLS/HR Piperacillin Sod/ Tazobactam Sod 1 each 1 each PRN DAILY PRN 10/14/16 23:15 Sodium Chloride (Iv Sodium Chloride 0.9% 1000ml Bag) 1,000 ml @ 125 mls/hr Q8H 10/15/16 00:30 10/16/16 00:29 Vancomycin HCl (Vanco Per Pharmacy) 1 each PRN DAILY PRN 10/14/16 23:15 Vancomycin HCl 1.5 gm/Sodium Chloride 500 ml @ 250 mls/hr 1X ONCE 10/15/16 00:00 10/15/16 01:59 10/15/16 00:00 250 MLS/HR Allergies Allergies Allergies Coded Allergies Type Severity Reaction Last Updated Verified ciprofloxacin Allergy Intermediate 09/02/16 Yes fentanyl Allergy Intermediate 10/14/16 Yes Physical Exam Physical Exam Constitutional: Well developed, well nourished, no acute distress, non-toxic appearance HENT: Normocephalic, atraumatic, bilateral external ears normal Eyes: EOMI, conjunctiva normal, no discharge Neck: Normal range of motion, no stridor Cardiovascular: Heart rate normal, regular rhythm, no murmur Lungs & Thorax: Bilateral breath sounds clear to auscultation Abdomen: Bowel sounds normal, soft, non-distended, no TTP Skin: Hot to touch. Decubitus ulcer L buttock Extremities: No obvious deformity, no edema. Limbs contracted Neurologic: Alert and oriented X 3, quadriplegic Current Patient Data Vital Signs Vital Signs Date Time Temp Pulse Resp B/P Pulse Ox O2 Delivery O2 Flow Rate FiO2 10/14/16 23:45 78 20 66/48 92 10/14/16 23:21 99.9 99.9 10/14/16 23:20 Room Air Lab Values Laboratory Tests Test 10/14/16 21:54 10/14/16 22:00 Urine Collection Type Unknown Urine Color Yellow Urine Clarity Cloudy Urine pH 7.5 Urine Specific [place] 1.015 Urine Protein 30mg/dL (NEG-TRACE) Urine Glucose (UA) Negativemg/dL (NEG) Urine Ketones (Stick) Negativemg/dL (NEG) Urine Blood Small (NEG) Urine Nitrite Positive (NEG) Urine Bilirubin Negative (NEG) Urine Urobilinogen Dipstick 1.0mg/dL (0.2 mg/dL) Urine Leukocyte Esterase Large (NEG) Urine RBC Occ/HPF (0-2) Urine WBC Tntc/HPF (0-4) Urine Squamous Epithelial Cells Few/LPF Urine Renal Epithelial Cells Occ/LPF Urine Bacteria Many/HPF (0-FEW) Urine Hyaline Casts Few/HPF Urine Mucus Mod/LPF White Blood Count 5.4x10^3/uL (4.0-11.0) Red Blood Count 3.77x10^6/uL (3.50-5.40) Hemoglobin 10.2g/dL (12.0-15.5) L Hematocrit 31.0% (36.0-47.0) L Mean Corpuscular Volume 82fL (79-100) Mean Corpuscular Hemoglobin 27pg (25-35) Mean Corpuscular Hemoglobin Concent 33g/dL (31-37) Red Cell Distribution Width 16.5% (11.5-14.5) H Platelet Count 285x10^3/uL (140-400) Neutrophils (%) (Auto) 61% (31-73) Lymphocytes (%) (Auto) 22% (24-48) L Monocytes (%) (Auto) 14% (0-9) H Eosinophils (%) (Auto) 3% (0-3) Basophils (%) (Auto) 0% (0-3) Neutrophils # (Auto) 3.3x10^3uL (1.8-7.7) Lymphocytes # (Auto) 1.2x10^3/uL (1.0-4.8) Monocytes # (Auto) 0.7x10^3/uL (0.0-1.1) Eosinophils # (Auto) 0.2x10^3/uL (0.0-0.7) Basophils # (Auto) 0.0x10^3/uL (0.0-0.2) Sodium Level 138mmol/L (136-145) Potassium Level 4.4mmol/L (3.5-5.1) Chloride Level 101mmol/L (98-107) Carbon Dioxide Level 28mmol/L (21-32) Anion Gap 9 (6-14) Blood Urea Nitrogen 14mg/dL (7-20) Creatinine 0.8mg/dL (0.6-1.0) Estimated GFR (Cockcroft-Gault) 74.5 BUN/Creatinine Ratio 18 (6-20) Glucose Level 140mg/dL (70-99) H Lactic Acid Level 2.0mmol/L (0.4-2.0) Calcium Level 9.4mg/dL (8.5-10.1) Total Bilirubin 0.4mg/dL (0.2-1.0) Aspartate Amino Transferase (AST) 22U/L (15-37) Alanine Aminotransferase (ALT) 16U/L (14-59) Alkaline Phosphatase 147U/L (46-116) H Total Protein 7.2g/dL (6.4-8.2) Albumin 2.3g/dL (3.4-5.0) L Albumin/Globulin Ratio 0.5 (1.0-1.7) L Laboratory Tests 10/14/16 22:00 Laboratory Tests 10/14/16 22:00 EKG EKG EKG (My read): sinus rhythm, rate 78, LAD, intervals wnl, no acute ST changes Radiology/Procedures Radiology/Procedures CXR (my read): No acute abnormality Course & Med Decision Making Course & Med Decision Making Pertinent Labs and Imaging studies reviewed. (See chart for details) Patient is 55-year-old female who presents with fever. Unclear source of infection, possible UTI given history of same. Also has history of C. difficile. Will check labs, chest x-ray, UA, C. difficile. IV fluids, broad- spectrum antibiotics, pain meds, nausea meds ordered. EKG and imaging results as above. Even after IV fluids, patient remained hypotensive with blood pressure in the 60s systolically. Therefore, central line placed and the affected ordered. Labs notable for apparent UTI, otherwise largely unremarkable. I was unable to get in touch with Dr. Young despite multiple attempts to multiple phone numbers. Therefore, I spoke with Dr. Levine who is agreed to admit patient with possible transfer of care tomorrow. Will admit to the ICU. Critical care: I spent 40 minutes critical care time with this patient. This does not include time spent on procedures. Dragon Disclaimer Dragon Disclaimer This electronic medical record was generated, in whole or in part, using a voice recognition dictation system. PROCEDURE Procedure Indication: Vascular access Consent: The patient provided consent for this procedure. Procedure: The patient was positioned appropriately and the skin over the right internal jugular was prepped and draped in a sterile fashion. Local anesthesia was used. Ultrasound guidance utilized. A large bore needle was used to identify the vein. A guide wire was then inserted into the vein through the needle. A triple lumen catheter was then inserted into the vessel over the guide wire using the Seldinger technique. All ports showed good, free flowing blood return and were flushed with saline solution. The catheter was then securely fastened to the skin with sutures and covered with a sterile dressing. A post procedure X-ray was ordered. The patient tolerated the procedure well. Complications: none. Departure Departure Impression: Primary Impression: UTI (urinary tract infection) Additional Impressions: Clinical sepsis Hypotension Disposition: ADMITTED INPATIENT Admitting Physician: Adriel Levine Condition: GUARDED Referrals: MARY LOU YOUNG MD (PCP) Problem Qualifiers NERISSA GOMEZ MD Oct 14, 2016 22:25
[2016-10-14] MEDS ORDERED: IV NORMAL SALINE 1000ML BAG 1,000 ML IV ONE ×2 (22:30→23:30)
[2016-10-14] MEDS ORDERED: MORPHINE SULFATE 4 MG/ML DISP.SYRIN. IV ONE (22:30)
[2016-10-14] MEDS ORDERED: ONDANSETRON ODT 4 MG TAB.RAPDIS PO ONE (22:30)
[2016-10-14 22:32] LABS: CALCIUM 9.4 mg/dL (8.5-10.1); CREATININE 0.8 mg/dL (0.6-1.0); GFR 74.5; POTASSIUM 4.4 mmol/L (3.5-5.1)
[2016-10-14 22:38] LABS: ALBUMIN 2.3 g/dL (3.4-5.0); ALBUMIN/GLOBULIN RATIO 0.5 (1.0-1.7); TOTAL BILIRUBIN 0.4 mg/dL (0.2-1.0); TOTAL PROTEIN 7.2 g/dL (6.4-8.2)
[2016-10-14 22:47] LABS: BACTERIA,URINE MANY /HPF (0-FEW); RBC,URINE OCC /HPF (0-2); SQUAMOUS EPITHELIAL CELL,UR FEW /LPF; WBC,URINE TNTC /HPF (0-4)
[2016-10-14] MEDS ORDERED: PIP/TAZO PER PHARMACY MC PRN (23:15)
[2016-10-14] MEDS ORDERED: PIPERACILLIN/TAZOBACTAM 3.375 GM in IV NORMAL SALINE 50ML 50 ML IV ONE (23:30)
[2016-10-15] VITALS (34 sets, daily range): BP systolic 47–158; BP diastolic 34–83
[2016-10-15] MEDS ORDERED: VANCOMYCIN 1.5 GM in IV NORMAL SALINE 500ML BAG 500 ML IV ONE ×2
[2016-10-15] MEDS ORDERED: LORAZEPAM 2 MG/ML VIAL IV ONE (00:15)
[2016-10-15] MEDS ORDERED: NOREPINEPHRINE VIAL 8 MG in IV NORMAL SALINE 250ML 250 ML IV ONE (00:15)
[2016-10-15] MEDS ORDERED: ACETAMINOPHEN 325 MG TABLET. PO PRN ×2 (00:30→11:15)
[2016-10-15] MEDS ORDERED: ONDANSETRON PF 4 MG/2 ML VIAL. IV PRN (00:30)
[2016-10-15] MEDS: NOREPINEPHRINE VIAL 8 MG in IV NORMAL SALINE 250ML 250 ML IV PRN (01:40)
--- NOTE | 2016-10-15 02:18 | ACF ---
Admit Criteria Forms Admit Criteria Forms Admit Criteria Forms URINARY COMPLICATIONS Clinical Indications for Inpatient Care (Place 'X' for any and all applicable criteria): Ongoing inpatient care may be indicated for urinary complications with ANY ONE of the following: [X]I. Urinary tract infection requiring inpatient care as indicated by ANY ONE of the following(8)(19)(20): [ ]a) Severe symptoms (eg, high fever, severe pain) [ ]b) Vomiting or dehydration requiring ongoing inpatient care [X]c) IV antibiotic needs that cannot be managed at lower level of care [ ]d) Hemodynamic instability [ ]e) Obstruction of collecting system by stone or tumor [ ]II. Urinary retention requiring drainage or surgery (3)(4)(5)(17)(18) [ ]III. Renal failure (Use Renal Failure Criteria for further information.) [ ]IV. Oliguria(30) [ ]V. Post obstructive diuresis requiring close monitoring of urine output and intravenous compensation for excessive fluid losses(33) Extended stay beyond goal length of stay for primary condition may be needed until ALL of the following are present(3)(4)(5)(8): [ ]a) Renal function (creatinine) at baseline, or daily decreases in creatinine consistent with renal function return [ ]b) Voiding adequately or with urinary catheter or percutaneous suprapubic tube and management regimen in place that is performable at lower level of care. [ ]c) Urine output adequate [ ]d) Fever absent or resolving [ ]e) Infection absent or treatable at next level of care The original [employer] content created by [employer] has been revised. The portions of the content which have been revised are identified through the use of italic text or in bold, and [facility] has neither reviewed nor approved the modified material. All other unmodified content is copyright [facility] Please see references footnoted in the original [facility] edition 2016 ALVERTO VELASQUEZ Oct 15, 2016 02:18
[2016-10-15] MEDS: IV NORMAL SALINE 1000ML BAG 1,000 ML IV SCH ×3 (02:30→16:30)
[2016-10-15] MEDS: VANCOMYCIN PER PHARMACY MC PRN (03:21)
[2016-10-15] MEDS ORDERED: FLUO40CA2 PO (05:25)
[2016-10-15] MEDS ORDERED: OXYC5TAB PO (05:25)
[2016-10-15] MEDS ORDERED: ONDA4TAB7 PO (05:25)
[2016-10-15] MEDS ORDERED: CLON0.25 PO (05:25)
[2016-10-15] MEDS ORDERED: OXYC10TA32 PO (05:25)
[2016-10-15] MEDS ORDERED: SIME80TA14 PO (05:25)
[2016-10-15] MEDS ORDERED: MELO-150 PO (05:25)
[2016-10-15] MEDS ORDERED: MAGN2400 PO (05:25)
[2016-10-15] MEDS ORDERED: POTA20TA82 PO (05:25)
[2016-10-15] MEDS: PIPERACILLIN/TAZOBACTAM 3.375 GM in IV NORMAL SALINE 50ML 50 ML IV SCH ×3 (06:05→17:26)
[2016-10-15] MEDS: MORPHINE SULFATE 2 MG/ML DISP.SYRIN. IV PRN ×2 (06:16→22:39)
[2016-10-15 08:00] LABS: BASO % 1 % (0-3); EOS % 4 % (0-3); HEMATOCRIT 29.3 % (36.0-47.0); HEMOGLOBIN 9.3 g/dL (12.0-15.5); LYMPH # 0.9 x10^3/uL (1.0-4.8); LYMPH % 22 % (24-48); MEAN CORPUSCULAR HEMOGLOBIN 26 pg (25-35); MEAN CORPUSCULAR HGB CONC 32 g/dL (31-37); MEAN CORPUSCULAR VOLUME 83 fL (79-100); MONO % 15 % (0-9); NEUT % 59 % (31-73); PLATELET COUNT 224 x10^3/uL (140-400); RED BLOOD COUNT 3.53 x10^6/uL (3.50-5.40); RED CELL DISTRIBUTION WIDTH 16.6 % (11.5-14.5); WHITE BLOOD COUNT 4.2 x10^3/uL (4.0-11.0)
--- NOTE | 2016-10-15 08:05 | RAD ---
Examination: Single frontal chest History: History of Central line placement. Comparison: 10/14/2016 Findings The cardiomediastinal silhouette grossly appears unremarkable. Hardware is identified in the left clavicle, cervical spine grossly appears similar to prior exam. Interval placement of a right-sided internal jugular line with the tip projecting in the region of the SVC. No evidence of pneumothorax. Impression: Interval placement of a right internal jugular line with the tip projecting in the region of the distal SVC.
[2016-10-15 08:10] LABS: CALCIUM 8.9 mg/dL (8.5-10.1); CREATININE 0.6 mg/dL (0.6-1.0); GFR 103.8; POTASSIUM 3.6 mmol/L (3.5-5.1)
--- NOTE | 2016-10-15 08:15 | RAD ---
Examination: Single frontal view chest History: History of fever Comparison: 09/08/2016 Findings: The cardiomediastinal silhouette grossly appears unremarkable. Minimal airspace opacity identified in the right infrahilar region similar to prior exam could be scarring or atelectasis. There is no evidence of pneumothorax. Impression: 1. Minimal airspace opacity identified in the right infrahilar region could be atelectasis or scarring changes, similar to prior exam.
[2016-10-15] MEDS ORDERED: SODIUM CHL/ALOE VERA NASAL GEL 14.1GM TUBE. TP PRN (11:15)
[2016-10-15] MEDS ORDERED: BISACODYL 10 MG SUPP.RECT RC PRN (11:15)
[2016-10-15] MEDS ORDERED: MAGNESIUM HYDROXIDE 2,400 MG/30 ML ORAL.SUSP. PO PRN (11:30)
--- NOTE | 2016-10-15 11:47 | EKG ---
[facility] [address] [place] [address] Test Date: 2016-10-14 Test Time: 21:56:52 Pat Name: FRANCINE GARRIDO Department: Room: 103 1 Gender: F [employer] Operator: HEVER EMT : 1960 Requested By: MARY LOU YOUNG Order Number: [id number] Reading MD: Prashant Huddleston Measurements Intervals Dawson Rate: 78 P: 38 MD: 160 QRS: -21 QRSD: 78 T: 30 QT: 388 QTc: 446 Interpretive Statements SINUS RHYTHM LEFTWARD AXIS NONSPECIFIC ST-T WAVE CHANGES. RI6.01 Unconfirmed report Compared to ECG 09/09/2016 14:04:45 Left-axis deviation now present Electronically Signed On 10-17-2016 14:01:32 SOFTWARE TEST ANALYST by Prashant Huddleston
[2016-10-15] MEDS: VANCOMYCIN 1 GM in IV NORMAL SALINE 250ML 250 ML IV SCH (11:52)
[2016-10-15] MEDS: ASCORBIC ACID 500 MG TABLET PO SCH ×3 (12:00→20:39)
[2016-10-15] MEDS: MELOXICAM 7.5 MG TABLET PO SCH ×2 (12:00→12:06)
[2016-10-15] MEDS: LIOTHYRONINE 5 MCG TABLET. PO SCH (12:00)
[2016-10-15] MEDS: ENOXAPARIN 40 MG/0.4 ML DISP.SYRIN. SQ SCH ×2 (12:00→12:06)
[2016-10-15] MEDS: PANTOPRAZOLE 40 MG TABLET. PO SCH ×2 (12:00→12:04)
[2016-10-15] MEDS: LEVOTHYROXINE 100 MCG TABLET PO SCH ×2 (12:00→12:05)
[2016-10-15] MEDS: OXYBUTYNIN CHLORIDE 5 MG TABLET PO SCH ×3 (12:00→20:40)
[2016-10-15] MEDS: FERROUS SULFATE 325 MG TABLET PO SCH ×2 (12:04→17:25)
[2016-10-15] MEDS: ASPIRIN 81 MG TAB.CHEW PO SCH (12:05)
[2016-10-15] MEDS: POTASSIUM CHLORIDE 20 MEQ TABLET.ER. PO SCH ×2 (12:05→17:25)
[2016-10-15] MEDS: MULTIVITAMIN with MINERAL TABLET. PO SCH (12:05)
[2016-10-15] MEDS: DIVALPROEX SPRINKLES 125 MG CAPSULE. PO SCH ×2 (12:05→20:39)
[2016-10-15] MEDS: FLUOXETINE HCL 20 MG CAPSULE PO SCH (12:05)
[2016-10-15] MEDS: DOCUSATE SODIUM 100 MG CAPSULE PO SCH ×2 (12:05→20:45)
[2016-10-15] MEDS: SIMETHICONE 80 MG TAB.CHEW PO SCH ×2 (12:06→17:25)
[2016-10-15] MEDS: OXYCODONE ER 10 MG TAB.ER.12H. PO SCH ×2 (12:13→20:39)
[2016-10-15] MEDS: CLONAZEPAM 0.5 MG TABLET PO PRN (12:14)
--- NOTE | 2016-10-15 13:35 | HP ---
ADMIT DATE: 10/15/2016 HISTORY OF PRESENT ILLNESS: The patient is a 55-year-old female patient, [facility] who was noted yesterday by the nursing staff to be afebrile with a temperature of 101.5 and patient expressed her desire to be investigated further and her daughter wanted her to be transferred to the hospital. Apparently, her temperature went up to 101.9. She apparently has also some nausea, chills, myalgia and all symptoms started yesterday. She was given Tylenol and oxycodone in skilled nursing without much improvement and was apparently brought to the Emergency Room of [facility] and her lab work showed no leukocytosis; however, her urinalysis showed that urine was positive for nitrite and leukocyte esterase and there were too numerous to count wbc's and many bacteria. She was pancultured. Apparently, had also a chest x-ray, which showed that she has minimal airspace opacity identified in the right infrahilar region, could be atelectasis versus scarring and was similar to prior exam and basically the patient was admitted to the ICU with sepsis and hypotension, most likely due to urinary tract infection. She was started on Levophed to maintain mean arterial pressure more than 65 mmHg and was started also on vancomycin and Zosyn. PAST MEDICAL HISTORY: Significant for chronic hepatitis, acute hematogenous osteomyelitis, atrial fibrillation, gastroesophageal reflux disease with esophagitis, chronic anemia. She is known to have history of C. diff colitis. She also has seizure disorder, chronic constipation, chronic pain syndrome, major depressive disorder, hypothyroidism, protein-calorie malnutrition, essential hypertension and anxiety disorder. She has also quadriplegia and did have gastrostomy tube that was dislodged accidentally and was never put back as the patient is now able to eat and drink. She has also chronic sacral decubitus ulcer and recurrent urinary tract infection. PAST SURGICAL HISTORY: Significant for gastrostomy tube placement, that was apparently dislodged accidentally. She had also neck surgery before. ALLERGIES: SHE IS ALLERGIC TO CIPROFLOXACIN. CODE STATUS: Full. FAMILY HISTORY: Unremarkable. SOCIAL HISTORY: She is currently residing at [facility]. She does not smoke, drink alcohol or use recreational drugs. She is mostly bed bound, chair bound; however, she has history of narcotic addiction. MEDICATIONS: She is currently on following medications: She is on Tylenol 650 mg every 4 hours as needed, ascorbic acid 500 mg twice a day, aspirin 81 mg once a day, baclofen 10 mg 3 times a day, bisacodyl 10 mg suppositories once a day, clonazepam 0.25 mg every 8 hours, divalproex sodium 125 mg twice a day, Colace 100 mg twice a day, Lovenox 40 mg subcutaneously daily. She is on famotidine 20 mg at bedtime, ferrous sulfate 325 mg 3 times a day, fluoxetine 40 mg once a day, iron polysaccharide complex 150 mg once a day, levothyroxine sodium 100 mcg once a day, liothyronine sodium 5 mcg once a day, magnesium hydroxide for milk of magnesia 30 mL p.o. daily, Meloxicam 15 mg once a day, mirtazapine 15 mg at bedtime, multivitamin 1 tablet once a day, ondansetron 4 mg every 6 hours, oxybutynin chloride 5 mg twice a day, oxycodone 5 mg every 4 hours and OxyContin 10 mg twice a day, Protonix 40 mg once a day, potassium chloride 20 mEq twice a day, simethicone 80 mg 3 times a day with meals and saline nasal gel applied topically every 6 hours, zinc sulfate 220 mg once a day. REVIEW OF SYSTEMS: As per history of present illness. PHYSICAL EXAMINATION: GENERAL: On arrival to the Emergency Room, she apparently was pale, somewhat cachectic, no jaundice, cyanosis or thyromegaly. No jugular venous distention. No lower limb edema. VITAL SIGNS: Her heart rate was 72, blood pressure was 114/61, temperature was 101.5, respiratory rate was 20, and oxygen saturation was 97%. HEENT: Normocephalic, atraumatic. NECK: Supple. HEART: Showed normal first and second heart sounds with no gallop, rub or murmur. CHEST: Clear to auscultation. No crepitation or rhonchi. ABDOMEN: Distended, soft, nontender. No guarding or rigidity. No organomegaly. All hernial orifices intact. Bowel sounds normal. She has an indwelling Arciniega catheter. NEUROLOGIC: She is awake, alert, responding appropriately. She has quadriplegia with marked muscle wasting and fixed flexion contraction of both upper and lower extremities. She has large sacral decubitus ulcer. LABORATORY DATA: On arrival showed a white cell count of 5400, hemoglobin 10.5, hematocrit 31, MCV 82, and platelet count 285,000. Her chemistry showed a serum sodium 138, potassium 4.4, chloride 101, bicarbonate 28, anion gap of 9, BUN 14, creatinine 0.8, estimated GFR was 74 mL per minute. Her glucose was 140. Lactic acid was 2. Calcium was 9.4. Total bilirubin, AST, ALT, alkaline phosphatase were normal. Total protein was 7.2, albumin 2.3. Her urinalysis showed the urine was yellow, cloudy with a pH of 7.5, specific gravity of 1.015. There was a trace of protein. The urine was negative for glucose, ketones, small amount of blood, positive for nitrites, large amount of leukocyte esterase. There was occasional rbc's, too numerous to current wbc's and many bacteria. She did have a chest x-ray done, which showed that she had minimal airspace opacity identified in the right infrahilar region that could be atelectasis versus scarring changes similar to previous x-rays done in 09/08/2016. While in the Emergency Room, she had a central line placed, which showed that she has right-sided internal jugular line with the tip projecting in the region of the superior vena cava. No evidence of pneumothorax. ASSESSMENT AND PLAN: The patient was admitted to the ICU, was started on Levophed, IV vancomycin as well as IV Zosyn. I reconciled all her medications. She was pancultured. We will await the results of the urine and blood culture and sensitivity and once ____ available and she remained hemodynamically stable, we will transfer her back as she was in fact being considered for hospice care. In fact, she was supposed to be evaluated today to go on hospice. MARY LOU YOUNG MD DR: BASIM/tom JOB#: [id number] / [id number]
[2016-10-15] MEDS: BACLOFEN 10 MG TABLET PO SCH ×2 (14:00→20:39)
[2016-10-15] MEDS: ONDANSETRON ODT 4 MG TAB.RAPDIS PO PRN ×2 (16:33→20:43)
[2016-10-15] MEDS: OXYCODONE IR 5 MG TABLET. PO PRN (19:23)
[2016-10-15] MEDS: MIRTAZAPINE 15 MG TABLET PO SCH (20:39)
[2016-10-15] MEDS: ZINC SULFATE 220 MG CAPSULE. PO SCH (20:39)
[2016-10-15] MEDS: FAMOTIDINE 20 MG TABLET. PO SCH (20:40)
[2016-10-15] MEDS: VANCOMYCIN 125 MG/2.5 ML ORAL SOLUTION. PO SCH (22:38)
[2016-10-16] VITALS (23 sets, daily range): BP systolic 83–132; BP diastolic 47–74
[2016-10-16] MEDS: VANCOMYCIN 1 GM in IV NORMAL SALINE 250ML 250 ML IV SCH ×2 (00:13→16:46)
[2016-10-16] MEDS: PIPERACILLIN/TAZOBACTAM 3.375 GM in IV NORMAL SALINE 50ML 50 ML IV SCH ×4 (00:13→21:41)
[2016-10-16] MEDS: OXYCODONE IR 5 MG TABLET. PO PRN ×4 (00:13→16:47)
[2016-10-16] MEDS: CLONAZEPAM 0.5 MG TABLET PO PRN ×2 (02:04→11:02)
[2016-10-16] MEDS: LEVOTHYROXINE 100 MCG TABLET PO SCH (05:32)
[2016-10-16 06:08] LABS: BASO % 0 % (0-3); EOS % 7 % (0-3); HEMATOCRIT 28.4 % (36.0-47.0); HEMOGLOBIN 9.3 g/dL (12.0-15.5); LYMPH # 1.6 x10^3/uL (1.0-4.8); LYMPH % 35 % (24-48); MEAN CORPUSCULAR HEMOGLOBIN 27 pg (25-35); MEAN CORPUSCULAR HGB CONC 33 g/dL (31-37); MEAN CORPUSCULAR VOLUME 82 fL (79-100); MONO % 19 % (0-9); NEUT % 38 % (31-73); PLATELET COUNT 259 x10^3/uL (140-400); RED BLOOD COUNT 3.47 x10^6/uL (3.50-5.40); WHITE BLOOD COUNT 4.4 x10^3/uL (4.0-11.0)
[2016-10-16 06:40] LABS: ALBUMIN 1.9 g/dL (3.4-5.0); ALBUMIN/GLOBULIN RATIO 0.4 (1.0-1.7); CALCIUM 8.7 mg/dL (8.5-10.1); CREATININE 0.5 mg/dL (0.6-1.0); GFR 128.1; POTASSIUM 4.1 mmol/L (3.5-5.1); TOTAL BILIRUBIN 0.3 mg/dL (0.2-1.0); TOTAL PROTEIN 6.4 g/dL (6.4-8.2)
[2016-10-16] MEDS: PANTOPRAZOLE 40 MG TABLET. PO SCH (07:30)
[2016-10-16] MEDS: POTASSIUM CHLORIDE 20 MEQ TABLET.ER. PO SCH ×2 (08:00→17:00)
[2016-10-16] MEDS: FERROUS SULFATE 325 MG TABLET PO SCH ×3 (08:00→17:00)
[2016-10-16] MEDS: SIMETHICONE 80 MG TAB.CHEW PO SCH ×3 (08:00→17:00)
[2016-10-16] MEDS: ASPIRIN 81 MG TAB.CHEW PO SCH (08:00)
[2016-10-16] MEDS: ONDANSETRON ODT 4 MG TAB.RAPDIS PO PRN (08:01)
[2016-10-16 08:05] LABS: % BASOS 2 % (0-3); % EOS 6 % (0-5); PLT ESTIMATE ADEQUATE (ADEQUATE)
[2016-10-16 08:06] LABS: ANISOCYTOSIS SLIGHT
[2016-10-16] MEDS ORDERED: PROPOFOL 100 ML IV ONE (08:36)
[2016-10-16] MEDS ORDERED: IRON POLYSACCHARIDE COMPLEX 150 MG CAPSULE PO SCH (09:00)
[2016-10-16] MEDS: ASCORBIC ACID 500 MG TABLET PO SCH ×2 (09:00→21:38)
[2016-10-16] MEDS: FLUOXETINE HCL 20 MG CAPSULE PO SCH (09:00)
[2016-10-16] MEDS: OXYBUTYNIN CHLORIDE 5 MG TABLET PO SCH ×2 (09:00→21:38)
[2016-10-16] MEDS: DIVALPROEX SPRINKLES 125 MG CAPSULE. PO SCH ×2 (09:00→21:37)
[2016-10-16] MEDS: MULTIVITAMIN with MINERAL TABLET. PO SCH (09:00)
[2016-10-16] MEDS: DOCUSATE SODIUM 100 MG CAPSULE PO SCH ×2 (09:00→21:38)
[2016-10-16] MEDS: LIOTHYRONINE 5 MCG TABLET. PO SCH (09:00)
[2016-10-16] MEDS: HYDROMORPHONE 2 MG/ML VIAL. IV PRN ×4 (09:10→18:34)
[2016-10-16] MEDS ORDERED: MORPHINE SULFATE 2 MG/ML DISP.SYRIN. IV PRN (09:15)
[2016-10-16] MEDS ORDERED: METOCLOPRAMIDE HCL 10 MG/2 ML VIAL. IV PRN (10:15)
[2016-10-16] MEDS ORDERED: PROMETHAZINE 12.5 MG in IV NORMAL SALINE 50ML 50 ML IV ONE (10:30)
[2016-10-16] MEDS: BACLOFEN 10 MG TABLET PO SCH ×3 (10:41→21:36)
[2016-10-16] MEDS: MELOXICAM 7.5 MG TABLET PO SCH (10:42)
[2016-10-16] MEDS: OXYCODONE ER 10 MG TAB.ER.12H. PO SCH ×2 (10:42→21:37)
[2016-10-16] MEDS: ENOXAPARIN 40 MG/0.4 ML DISP.SYRIN. SQ SCH (10:43)
[2016-10-16] MEDS: VANCOMYCIN PER PHARMACY MC PRN (12:31)
[2016-10-16] MEDS: VANCOMYCIN 125 MG/2.5 ML ORAL SOLUTION. PO SCH ×5 (14:50→21:42)
[2016-10-16] MEDS ORDERED: PROPOFOL 10 MG/ML (100ML) VIAL. IV ONE (16:30)
[2016-10-16] MEDS ORDERED: PROMETHAZINE 12.5 MG in IV NORMAL SALINE 50ML 50 ML IV PRN (18:45)
[2016-10-16] MEDS: ZINC SULFATE 220 MG CAPSULE. PO SCH (21:37)
[2016-10-16] MEDS: MIRTAZAPINE 15 MG TABLET PO SCH (21:37)
[2016-10-16] MEDS: FAMOTIDINE 20 MG TABLET. PO SCH (21:38)
[2016-10-17] VITALS (22 sets, daily range): BP systolic 56–125; BP diastolic 35–76
[2016-10-17] MEDS: VANCOMYCIN 1 GM in IV NORMAL SALINE 250ML 250 ML IV SCH ×2 (00:05→12:57)
[2016-10-17] MEDS: PIPERACILLIN/TAZOBACTAM 3.375 GM in IV NORMAL SALINE 50ML 50 ML IV SCH ×4 (00:54→17:04)
--- NOTE | 2016-10-17 01:17 | PN ---
DATE: 10/16/2016 SUBJECTIVE: The patient is resting, slightly propped up, sleeping comfortably, in no apparent distress. She did complain of nausea and headache this morning. It has resolved. She continued to be on low-dose Levophed. PHYSICAL EXAMINATION: GENERAL: When I examined her, she looked pale, but no jaundice, cyanosis or thyromegaly. No jugular venous distention. No limb edema. VITAL SIGNS: Her heart rate was 70, blood pressure was 99/64, temperature was 98.1, respiratory rate was 14 and oxygen saturation was 94% on 2 liters of oxygen. Rest of clinical examination is unremarkable, has not really changed. Her intake was 3863, output was 620. LABORATORY DATA: Her serum sodium was 144, potassium 4.1, chloride 110, bicarbonate 28, anion gap of 6, BUN 4, creatinine 0.5. Estimated GFR was 128. Her glucose was 101, calcium was 8.7. Total bilirubin, AST, ALT, alkaline phosphatase were normal. Total protein was 6.4, albumin was 1.9. Her white cell count was 4,400, hemoglobin 9.3, hematocrit 28.4, her platelet was 259,000. The blood culture still showed no growth so far and urine cultures are also still pending. ASSESSMENT: Sepsis, most likely urinary tract infection for which she is on IV antibiotic. The urine and blood cultures are still pending at the time of this dictation. PLAN: To continue with IV vancomycin and Zosyn. Continue with IV Levophed. Once we have the culture and sensitivity, we will narrow down the antibiotic treatment and [facility]. MARY LOU YOUNG MD DR: BASIM/tom JOB#: [id number] / [id number]
[2016-10-17] MEDS: HYDROMORPHONE 2 MG/ML VIAL. IV PRN (03:44)
[2016-10-17 06:35] LABS: BASO % 1 % (0-3); EOS % 10 % (0-3); HEMATOCRIT 28.4 % (36.0-47.0); HEMOGLOBIN 8.9 g/dL (12.0-15.5); LYMPH # 1.2 x10^3/uL (1.0-4.8); LYMPH % 47 % (24-48); MEAN CORPUSCULAR HEMOGLOBIN 26 pg (25-35); MEAN CORPUSCULAR HGB CONC 31 g/dL (31-37); MEAN CORPUSCULAR VOLUME 84 fL (79-100); MONO % 18 % (0-9); NEUT % 24 % (31-73); PLATELET COUNT 211 x10^3/uL (140-400); RED BLOOD COUNT 3.39 x10^6/uL (3.50-5.40); RED CELL DISTRIBUTION WIDTH 15.4 % (11.5-14.5); WHITE BLOOD COUNT 2.5 x10^3/uL (4.0-11.0)
[2016-10-17] MEDS: LEVOTHYROXINE 100 MCG TABLET PO SCH (07:00)
[2016-10-17 07:01] LABS: CALCIUM 8.6 mg/dL (8.5-10.1); CREATININE 0.5 mg/dL (0.6-1.0); GFR 128.1
[2016-10-17] MEDS: PANTOPRAZOLE 40 MG TABLET. PO SCH (07:30)
[2016-10-17] MEDS: VANCOMYCIN PER PHARMACY MC PRN (08:37)
[2016-10-17] MEDS: MELOXICAM 7.5 MG TABLET PO SCH (08:58)
[2016-10-17] MEDS: MULTIVITAMIN with MINERAL TABLET. PO SCH (08:58)
[2016-10-17] MEDS: VANCOMYCIN 125 MG/2.5 ML ORAL SOLUTION. PO SCH ×4 (08:58→20:59)
[2016-10-17] MEDS: DIVALPROEX SPRINKLES 125 MG CAPSULE. PO SCH ×2 (08:58→20:19)
[2016-10-17] MEDS: POTASSIUM CHLORIDE 20 MEQ TABLET.ER. PO SCH ×2 (08:59→16:35)
[2016-10-17] MEDS: FERROUS SULFATE 325 MG TABLET PO SCH ×3 (08:59→16:36)
[2016-10-17] MEDS: DOCUSATE SODIUM 100 MG CAPSULE PO SCH ×2 (09:00→20:21)
[2016-10-17] MEDS: OXYBUTYNIN CHLORIDE 5 MG TABLET PO SCH ×2 (09:00→20:22)
[2016-10-17] MEDS: ASCORBIC ACID 500 MG TABLET PO SCH ×2 (09:00→20:22)
[2016-10-17] MEDS: ASPIRIN 81 MG TAB.CHEW PO SCH (09:02)
[2016-10-17] MEDS: BACLOFEN 10 MG TABLET PO SCH ×3 (09:03→20:22)
[2016-10-17] MEDS: FLUOXETINE HCL 20 MG CAPSULE PO SCH (09:03)
[2016-10-17] MEDS: SIMETHICONE 80 MG TAB.CHEW PO SCH ×3 (09:03→16:35)
[2016-10-17] MEDS: OXYCODONE ER 10 MG TAB.ER.12H. PO SCH ×2 (09:04→20:24)
[2016-10-17] MEDS: LIOTHYRONINE 5 MCG TABLET. PO SCH (09:06)
[2016-10-17] MEDS: ENOXAPARIN 40 MG/0.4 ML DISP.SYRIN. SQ SCH (09:06)
[2016-10-17] MEDS: ONDANSETRON ODT 4 MG TAB.RAPDIS PO PRN (10:50)
[2016-10-17] MEDS: OXYCODONE IR 5 MG TABLET. PO PRN ×3 (13:05→20:59)
[2016-10-17] MEDS: MIDODRINE 5 MG TABLET PO SCH ×3 (14:48→17:39)
[2016-10-17] MEDS: IV NORMAL SALINE 1000ML BAG 1,000 ML IV SCH (15:30)
[2016-10-17] MEDS: FAMOTIDINE 20 MG TABLET. PO SCH (20:20)
[2016-10-17] MEDS: ZINC SULFATE 220 MG CAPSULE. PO SCH (20:20)
[2016-10-18] VITALS (11 sets, daily range): BP systolic 72–136; BP diastolic 45–78
[2016-10-18] MEDS: PIPERACILLIN/TAZOBACTAM 3.375 GM in IV NORMAL SALINE 50ML 50 ML IV SCH ×3 (00:23→12:31)
[2016-10-18] MEDS: IV NORMAL SALINE 1000ML BAG 1,000 ML IV SCH ×2 (01:29→11:30)
[2016-10-18] MEDS: NOREPINEPHRINE VIAL 8 MG in IV NORMAL SALINE 250ML 250 ML IV PRN (02:10)
[2016-10-18] MEDS: LEVOTHYROXINE 100 MCG TABLET PO SCH (06:24)
[2016-10-18] MEDS: MIDODRINE 5 MG TABLET PO SCH ×2 (06:25→12:31)
[2016-10-18] MEDS: PANTOPRAZOLE 40 MG TABLET. PO SCH (07:30)
[2016-10-18] MEDS: DOCUSATE SODIUM 100 MG CAPSULE PO SCH (08:02)
[2016-10-18] MEDS: ONDANSETRON ODT 4 MG TAB.RAPDIS PO PRN (08:31)
[2016-10-18] MEDS: ASPIRIN 81 MG TAB.CHEW PO SCH (08:34)
[2016-10-18] MEDS: OXYCODONE ER 10 MG TAB.ER.12H. PO SCH (08:34)
[2016-10-18] MEDS: FLUOXETINE HCL 20 MG CAPSULE PO SCH (08:34)
[2016-10-18] MEDS: ASCORBIC ACID 500 MG TABLET PO SCH (08:35)
[2016-10-18] MEDS: BACLOFEN 10 MG TABLET PO SCH ×2 (08:35→14:29)
[2016-10-18] MEDS: SIMETHICONE 80 MG TAB.CHEW PO SCH ×2 (08:35→12:31)
[2016-10-18] MEDS: FERROUS SULFATE 325 MG TABLET PO SCH ×2 (08:35→12:31)
[2016-10-18] MEDS: DIVALPROEX SPRINKLES 125 MG CAPSULE. PO SCH (08:35)
[2016-10-18] MEDS: OXYBUTYNIN CHLORIDE 5 MG TABLET PO SCH (08:35)
[2016-10-18] MEDS: POTASSIUM CHLORIDE 20 MEQ TABLET.ER. PO SCH (08:36)
[2016-10-18] MEDS: LIOTHYRONINE 5 MCG TABLET. PO SCH (08:36)
[2016-10-18] MEDS: MELOXICAM 7.5 MG TABLET PO SCH (08:36)
[2016-10-18] MEDS: VANCOMYCIN 125 MG/2.5 ML ORAL SOLUTION. PO SCH ×2 (08:37→12:31)
[2016-10-18] MEDS: MULTIVITAMIN with MINERAL TABLET. PO SCH (08:37)
[2016-10-18] MEDS: ENOXAPARIN 40 MG/0.4 ML DISP.SYRIN. SQ SCH (08:37)
[2016-10-18] MEDS ORDERED: PRENATAL MULTIVITAMIN TABLET. PO SCH (09:00)
[2016-10-18] MEDS ORDERED: ONDANSETRON ODT 4 MG TAB.RAPDIS PO PRN (12:27)
--- NOTE | 2016-10-18 15:26 | PN ---
DATE: 10/17/2016 SUBJECTIVE: The patient is resting, slightly propped up in bed, in no apparent distress. Continues to complain of severe pain in her neck and shoulders. Blood pressure is low, she is requiring Levophed; however, she is afebrile and her white cell count is normal. So far all her cultures are negative. She did grow greater than 2 organisms recovered from ____ predominant. Her blood culture is negative. PHYSICAL EXAMINATION: GENERAL: When I examined her, she looked well and was clearly in no apparent respiratory distress, pale, no jaundice. No lymphadenopathy, no thyromegaly. No jugular venous distention. No limb edema. VITAL SIGNS: Her heart rate was 65, blood pressure 124/76, temperature was 98, respiratory rate was 18 and oxygen saturation was 97% on room air. The rest of the examination is unremarkable, has not really changed. PLAN: To taper the Levophed, start her on midodrine 10 mg 3 times a day, increase her OxyContin to 20 mg twice a day and oxycodone 10 mg every 6 hours. We will evaluate her tomorrow morning. If she remains stable, we would discontinue Zosyn, start her on Augmentin and will be discharged back to [facility]. MARY LOU YOUNG MD DR: BASIM/tom JOB#: [id number] / [id number]
--- NOTE | 2016-10-18 22:05 | DS ---
DATE OF DISCHARGE: 10/18/2016 HOSPITAL COURSE: The patient is a 55-year-old female patient, a resident at [facility], who was admitted with fever and was evaluated in the Emergency Room and she was septic, was admitted to the ICU, started on IV vancomycin, IV Zosyn as well as Levophed. She did very well. She has remained stable with normal white cell count. She has been afebrile since admission and we did send urine and blood for culture and sensitivity. Unfortunately, the urine culture recovered two organisms, none predominant, but the patient has responded well clinically. Her blood cultures remained negative. Chest x-ray was unremarkable and her Levophed was discontinued. We did start her on midodrine and her blood pressure remained stable and a decision was made to discharge her back to [facility]. She also developed diarrhea and stool came positive for C. diff. She was started on vancomycin 125 mg 4 times a day. PHYSICAL EXAMINATION: GENERAL: When I saw her today, she looked well and was clearly in no apparent respiratory distress, pale. No jaundice, cyanosis or thyromegaly. No jugular venous distention. No limb edema. VITAL SIGNS: Her heart rate was 65, blood pressure was 113/70, temperature was 98, respiratory rate was 13 and oxygen saturation was 94% on 2 liters of oxygen. HEAD, EYES, EARS, NOSE AND THROAT: Showed normocephalic and atraumatic. NECK: Supple. HEART: Showed normal first and second sounds. No gallop, rub or murmur. CHEST: Clear to auscultation. No wheezes or rhonchi. ABDOMEN: Distended, soft, nontender. No guarding or rigidity. No organomegaly. Hernial orifices intact. Bowel sounds normal. NEUROLOGIC: She is awake, alert, responding appropriately. She has quadriplegia with fixed flexion contracture of all limbs. GENITOURINARY: She has neurogenic bladder, requiring indwelling Arciniega catheter. SKIN: She has stage IV sacral decubitus ulcer. LABORATORY DATA: Her intake over the last 24 hours was 2300, output was 2285. Her lab work showed a white cell count of 2500, hemoglobin 8.9, hematocrit 28.4, MCV 84 and platelet count of 211,000. Her chemistry showed a serum sodium 146, potassium 4, chloride 110, bicarbonate 32, anion gap of 4, BUN 4, creatinine 0.5, estimated GFR was 128 mL per minute, glucose 93, calcium was 8.6, total protein 6.4, albumin 1.9. Her stool was positive for C. diff toxins. DISCHARGE MEDICATIONS: The patient was discharged to continue with Augmentin 875 mg twice a day for 5 more days. Continue with vancomycin 125 mg 4 times a day for 10 more days. Continue with her pain medication including OxyContin 20 mg twice a day as well as oxycodone immediate release 10 mg every 4 hours. FINAL DISCHARGE DIAGNOSES: Urinary tract infection with septicemia, Clostridium difficile colitis, quadriplegia. MARY LOU YOUNG MD DR: BASIM/tom JOB#: [id number] / [id number]
== END 2016-10-18 15:45 | DRG 871 ==
LOC: ER 21:48 → 1 WEST ICU 10-15 00:28
PROVIDERS: ADMIT Internal Medicine; ATTEND Internal Medicine
PROC: 02HV33Z Insertion of Infusion Device into Superior Vena Cava, Percutaneous Approach (ICD-10-PCS; principal; 2016-10-15)
DX: A41.9 Sepsis, unspecified organism (principal); G82.50 Quadriplegia, unspecified; A04.7 Enterocolitis due to Clostridium difficile; N39.0 Urinary tract infection, site not specified; E46 Unspecified protein-calorie malnutrition; Z68.1 Body mass index [BMI] 19.9 or less, adult; F11.20 Opioid dependence, uncomplicated; M86.9 Osteomyelitis, unspecified; E03.9 Hypothyroidism, unspecified; G40.909 Epilepsy, unspecified, not intractable, without status epilepticus; G89.4 Chronic pain syndrome; I10 Essential (primary) hypertension; I48.91 Unspecified atrial fibrillation; F32.9 Major depressive disorder, single episode, unspecified; F41.9 Anxiety disorder, unspecified; K75.9 Inflammatory liver disease, unspecified; L89.159 Pressure ulcer of sacral region, unspecified stage; K21.9 Gastro-esophageal reflux disease without esophagitis; Z86.19 Personal history of other infectious and parasitic diseases; Z87.440 Personal history of urinary (tract) infections; Z88.1 Allergy status to other antibiotic agents; Z88.8 Allergy status to other drugs, medicaments and biological substances; Z79.82 Long term (current) use of aspirin; Z93.1 Gastrostomy status
CPT/HCPCS: 36415; 36556; 71010; 80048; 80053; 80202; 81001; 83605; 85007; 85027; 87040; 87086; 87324; 87641; 93005; 96361; 96365; 96375; J1170; J1650; J2270; J2405; J2543; J2550; J2704; J3370; J7030; J7040; J7050; Q0162; 99291-25